=== PATIENT | female | born 1945 | race Caucasian/White ===

== ENCOUNTER 2017-06-30 13:52 | Inpatient (IN) | payer OTHER, MEDICARE ==
[~2017-06-30] VITALS: Ht 170.2 cm; Wt 69.4 kg
[2017-06-30] VITALS (38 sets, daily range): BP systolic 77–154; BP diastolic 54–92; PULSE 72–166; RESP 9–25; TEMP 97.8–98.3; O2SAT 90–100
[~2017-06-30 13:52] MED LIST: ALBU6.7H INH; AMOX500C PO; ASPI81TA81 PO; CLOB0.05 TOPICAL; CREON12 PO; CYAN1000P IM; DONE10TA7 PO; GABA300C5 PO; HYDR-3583 PO; LORA1TAB12 PO; MEDICAL COMPRES1 MIS; OMEP20CA2 PO; OXYB5TAB10 PO; TRAZ100T6 PO; ZOCO40TA PO; [UNRECOGNIZED DRUG - OTHER] SQ
[2017-06-30] MEDS ORDERED: DILTIAZEM HCL 25 MG/5 ML VIAL IV ONE ×2 (14:15→16:15)
[2017-06-30] MEDS ORDERED: SODIUM CHLORIDE 0.9% FLUSH 10 ML FLUSH IVF PRN (14:15)
[2017-06-30] MEDS ORDERED: SODIUM CHLORID 0.9% 500 ML INJ 500 ML IV ONE (14:15)
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
[2017-06-30 14:43] LABS: AUTOMATED NEUTROPHIL # 1.7 TH/MM3 (1.8-7.7); BASOPHIL # 0.1 TH/MM3 (0-0.2); BASOPHIL % 1.5 % (0.0-2.0); EOSINOPHIL # 0.1 TH/MM3 (0-0.4); HEMATOCRIT 31.2 % (35.0-46.0); HEMOGLOBIN 10.2 GM/DL (11.6-15.3); LYMPH % 31.8 % (9.0-44.0); LYMPHOCYTE # 1.1 TH/MM3 (1.0-4.8); MEAN CELL VOLUME 86.1 FL (80.0-100.0); MEAN CORPUSCULAR HEMOGLOBIN 28.1 PG (27.0-34.0); MEAN CORPUSCULAR HGB CONC 32.7 % (32.0-36.0); MEAN PLATELET VOLUME 7.8 FL (7.0-11.0); MONO % 12.4 % (0.0-8.0); MONOCYTE # 0.4 TH/MM3 (0-0.9); NEUT % 50.3 % (16.0-70.0); PLATELET COUNT 222 TH/MM3 (150-450); RED BLOOD COUNT 3.63 MIL/MM3 (4.00-5.30); RED CELL DISTRIBUTION WIDTH 16.2 % (11.6-17.2); WHITE BLOOD COUNT 3.4 TH/MM3 (4.0-11.0)
[2017-06-30] MEDS ORDERED: SODIUM CHLOR 0.9% 1000 ML INJ 1,000 ML IV ONE (14:45)
--- NOTE | 2017-06-30 14:48 | RADRPT ---
EXAM DATE/TIME: 06/30/2017 14:17 [facility] COMPARISON: No previous studies available for comparison. INDICATIONS : Heart palpitations and shortness of breath. MEDICAL HISTORY : A-fib. SURGICAL HISTORY : Pacemaker. CABG. ENCOUNTER: Initial ACUITY: 1 day PAIN SCORE: 0/10 LOCATION: Bilateral chest FINDINGS: Median sternotomy wires are noted status post cardiac surgery. The heart is enlarged. A left subcla vian multi-lead pacemaker has its tip in the right atrium or right ventricle. There is no pneumothor ax. Discoid atelectasis is noted within the right lung base. CONCLUSION: 1. Cardiomegaly. 2. Discoid atelectasis within the right lung base. Long Whalen MD on June 30, 2017 at 14:28 Board Certified Radiologist. This report was verified electronically.
[2017-06-30] MEDS ORDERED: OXYB5TAB10 PO (14:51)
[2017-06-30 15:23] LABS: CHLORIDE 110 MEQ/L (98-107); SODIUM (NA) 142 MEQ/L (136-145)
[2017-06-30 15:27] LABS: ALBUMIN 2.7 GM/DL (3.4-5.0); BICARBONATE 24.2 MEQ/L (21.0-32.0); BLOOD UREA NITROGEN 9 MG/DL (7-18); CALCIUM 7.6 MG/DL (8.5-10.1); GLUCOSE,RANDOM 68 MG/DL (74-106); MAGNESIUM 1.9 MG/DL (1.5-2.5)
[2017-06-30 15:29] LABS: PROTHROMBIN TIME - PATIENT 11.4 SEC (9.8-11.6)
[2017-06-30 15:30] LABS: ALT (GPT) 15 U/L (10-53); AST (GOT) 15 U/L (15-37); CREATININE 0.55 MG/DL (0.50-1.00); GLOMERULAR FILTRATION RATE 110 ML/MIN (>89)
[2017-06-30] MEDS ORDERED: DIGOXIN 0.5 MG/2 ML VIAL IV PUSH ONE (15:30)
[2017-06-30] MEDS ORDERED: DILTIAZEM INJ 125 MG in SODIUM CHLORIDE 0.9% INJ 100 ML IV PRN (15:30)
[2017-06-30 15:32] LABS: TOTAL BILIRUBIN ADULT 0.3 MG/DL (0.2-1.0); TOTAL PROTEIN 5.6 GM/DL (6.4-8.2)
[2017-06-30 15:33] LABS: ALKALINE PHOSPHATASE 105 U/L (45-117)
[2017-06-30 15:35] LABS: TROPONIN I LESS THAN 0.02 NG/ML (0.02-0.05)
[2017-06-30] MEDS ORDERED: APIXABAN 5 MG TABLET PO ONE (16:00)
[2017-06-30] MEDS ORDERED: NALOXONE HCL 0.4 MG/ML AMP IV PUSH PRN (16:15)
[2017-06-30] MEDS ORDERED: SODIUM CHLORIDE 0.9% FLUSH 10 ML FLUSH IV FLUSH PRN (16:15)
[2017-06-30] MEDS ORDERED: ACETAMINOPHEN 325 MG TAB PO PRN (16:15)
[2017-06-30] MEDS ORDERED: ONDANSETRON HCL 4 MG/2 ML VIAL IVP PRN (16:15)
[2017-06-30] MEDS ORDERED: SENNOSIDES 8.6 MG TAB PO PRN (16:15)
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
[2017-06-30] MEDS: ACETAMINOPHEN/HYDROcodone 325 MG/10 MG TAB PO PRN (20:16)
[2017-06-30] MEDS: DONEPEZIL HCL 5 MG TAB PO SCH (20:17)
[2017-06-30] MEDS: GABAPENTIN 300 MG CAP PO SCH (20:17)
[2017-06-30] MEDS: SODIUM CHLORIDE 0.9% FLUSH 10 ML FLUSH IV FLUSH SCH (20:17)
[2017-07-01] VITALS (12 sets, daily range): BP systolic 80–134; BP diastolic 50–88; PULSE 68–122; RESP 11–33; TEMP 97.8–98; O2SAT 90–96
[2017-07-01] MEDS: DILTIAZEM HCL 30 MG TAB PO SCH ×2 (00:19→05:55)
[2017-07-01] MEDS ORDERED: SODIUM CHLORID 0.9% 500 ML INJ 500 ML IV ONE (03:00)
[2017-07-01 04:59] LABS: AUTOMATED NEUTROPHIL # 1.3 TH/MM3 (1.8-7.7); BASOPHIL % 0.9 % (0.0-2.0); EOSINOPHIL # 0.1 TH/MM3 (0-0.4); EOSINOPHIL % 4.1 % (0.0-4.0); HEMATOCRIT 28.5 % (35.0-46.0); LYMPH % 31.9 % (9.0-44.0); LYMPHOCYTE # 0.9 TH/MM3 (1.0-4.8); MEAN CORPUSCULAR HEMOGLOBIN 26.9 PG (27.0-34.0); MEAN CORPUSCULAR HGB CONC 31.7 % (32.0-36.0); MEAN PLATELET VOLUME 7.5 FL (7.0-11.0); MONO % 14.3 % (0.0-8.0); MONOCYTE # 0.4 TH/MM3 (0-0.9); NEUT % 48.8 % (16.0-70.0); PLATELET COUNT 220 TH/MM3 (150-450); RED BLOOD COUNT 3.36 MIL/MM3 (4.00-5.30); RED CELL DISTRIBUTION WIDTH 15.7 % (11.6-17.2); WHITE BLOOD COUNT 2.7 TH/MM3 (4.0-11.0)
[2017-07-01 05:11] LABS: BICARBONATE 25.5 MEQ/L (21.0-32.0); CALCIUM 7.5 MG/DL (8.5-10.1)
[2017-07-01 05:15] LABS: CREATININE 0.49 MG/DL (0.50-1.00)
[2017-07-01] MEDS: ACETAMINOPHEN/HYDROcodone 325 MG/10 MG TAB PO PRN ×3 (05:58→19:11)
--- NOTE | 2017-07-01 08:22 | MB ---
cc: RADHA VERNON MD DATE OF CONSULTATION 07/01/2017 REASON FOR CONSULTATION Atrial fibrillation HISTORY OF PRESENT ILLNESS Ms. Chow is a 71-year-old female who does have a history of atrial fibrillation and is status post ablation and [employer] Macario pacemaker implantation. She also has a history of mitral valve repair and congestive heart failure. 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 Oglesby and was found to be in atrial fibrillation RVR. She subsequently presented to the emergency room. She also notes that she has been having intermittent episodes of a chest fullness in her left upper chest. This did not appear to have any precipitating or relieving factors. She describes it like an air bubble in her chest. PAST MEDICAL HISTORY Significant for: 1. Atrial fibrillation 2. Chronic pain 3. CHF 4. Hepatitis 5. Obesity status post gastric bypass 6. Mitral regurgitation status post mitral valve repair 7. The patient notes that she also has had chronic anemia. PAST SURGICAL HISTORY Also includes: 1. BSO 2. Pacemaker implantation. ALLERGIES Included CONTRAST, DICLOFENA, 5-FU, AMLODIPINE, GADOBENIC ACID. OUTPATIENT MEDICATIONS Include: 1. Hydrocodone 2. Ditropan 3. Gabapentin 4. Omeprazole 5. Amoxicillin for recurrent dental infections 6. Donepezil 7. Aspirin FAMILY HISTORY Significant for Alzheimer's and negative for CAD. SOCIAL HISTORY The patient does not drink or smoke. REVIEW OF SYSTEMS Except as mentioned in the HPI, all 12 systems are negative. PHYSICAL EXAM VITAL SIGNS: 98.0, 70, 12, 89/56. GENERAL: She is a thin female who is in no apparent distress. NECK: Her neck is free from JVD. LUNGS: The lungs are bilaterally clear auscultation. CARDIOVASCULAR: She has an irregularly irregular rhythm. No rubs or gallops are appreciated. ABDOMEN: The abdomen is soft. EXTREMITIES: The extremities are free from edema. LAB VALUES Significant for a white count of 2.7, hemoglobin of 9.0. Her creatinine is 0.49 and serial troponins are less than 0.02. EKG from 07/01 does show atrial fibrillation with rapid ventricular rate at about 160. Telemetry currently shows atrial fibrillation at 80 beats per minute with intermittent demand pacing. IMPRESSION Atrial fibrillation - The patient does have a history of the same. She is a poor historian. She apparently was not on any rate controlling meds likely secondary to her relative hypotension. As well, she is quite anemic. According to her, she has not been worked up for this and was unaware that this is a current problem, although she has a history of the same. In light of this, I would not pursue aggressive anticoagulation despite her elevated CHADS-VASc risk score. I am going to switch her short-acting Cardizem to the long-acting Cardizem for rate control. Aspirin does seem reasonable for anticoagulation at this point. Chest pain - Further evaluation with a Lexiscan nuclear stress test does seem reasonable, although she is a poor/not a revascularization candidate at this time secondary to the anemia. Anemia - This will be worked up by the primary team. If the patient remains well rate controlled on the Cardizem and the nuclear stress test is nonischemic, it is reasonable for her to be discharged home. Radha Vernon M.D. TRIPP/NICK /7:40 AM /8:05 AM
[2017-07-01] MEDS: ASPIRIN EC 81 MG TABEC PO SCH (09:00)
[2017-07-01] MEDS: SODIUM CHLORIDE 0.9% FLUSH 10 ML FLUSH IV FLUSH SCH ×2 (09:00→20:57)
--- NOTE | 2017-07-01 09:42 | EKG ---
Date Performed: 06/30/2017 Time Performed: 14:10:18 PTAGE: 71 years EKG: ATRIAL FIBRILLATION WITH RAPID VENTRICULAR RESPONSE NONSPECIFIC T-WAVE ABNORMALITY ABNORMAL RHYTHM ECG PREVIOUS TRACING : 10/30/2013 16.37 Since prior tracing, atrial fibrillation with rapid ventric ular response has replaced an atrial paced rhythm. DOCTOR: Nikhil Torres Interpretating Date/Time 07/01/2017 09:40:14
[2017-07-01] MEDS: DILTIAZEM-CD 120 MG CAP ER PO SCH (11:07)
--- NOTE | 2017-07-01 12:46 | HHI.PR ---
Subjective Remarks Patient has had hypotension overnight. Heart rate 116. Blood pressure improved 110/72. Patient was to go for stress test this morning but was unable to secondary to tachycardia. Cardiology Dr. Vernon was notified. Patient complaining of chronic back pain and asked for breakthrough pain medicine. Patient denies shortness of breath or dizziness. Review of patient's record shows that she has had chronic anemia. She was referred to a aircraft maintenance supervisor in 2009 but did not show up for the appointment. Patient had negative Hemoccult. She has had negative colonoscopy more than 10 years ago. Patient denies history of GI bleed or gastric ulcer. Patient denies seeing any blood in her stool. Patient does have history of gastric bypass and states that her by mouth intake is poor. She believes she is anemic secondary to this. Patient also has history of drug-seeking behavior as per her primary care physician notes with a history of getting her prescription drugs filled early. Objective Vitals Vital Signs Date Time Temp Pulse Resp B/P (MAP) Pulse Ox O2 Delivery O2 Flow Rate FiO2 07/01/17 04:10 70 12 89/56 (67) 95 07/01/17 04:00 98.0 68 13 83/52 (62) 93 07/01/17 03:00 76 16 92/55 (67) 93 07/01/17 02:55 78 80/50 07/01/17 02:00 78 12 80/50 (60) 90 07/01/17 01:30 76 13 93 07/01/17 01:15 90 11 94 07/01/17 01:00 106 33 103/79 (87) 90 07/01/17 01:00 106 33 103/79 (87) 90 07/01/17 01:00 106 33 103/79 (87) 90 07/01/17 00:45 84 17 105/64 (78) 96 07/01/17 00:45 84 17 105/64 (78) 96 07/01/17 00:30 78 14 98/64 (75) 95 07/01/17 00:30 78 14 98/64 (75) 95 07/01/17 00:15 76 16 94/64 (74) 93 07/01/17 00:15 76 16 94/64 (74) 93 07/01/17 00:00 78 14 92/62 (72) 93 07/01/17 00:00 78 14 92/62 (72) 93 06/30/17 23:45 84 14 91/59 (70) 92 06/30/17 23:30 90 14 98/56 (70) 92 06/30/17 23:15 78 14 97/64 (75) 93 06/30/17 23:00 78 06/30/17 23:00 72 14 99/57 (71) 93 06/30/17 22:45 84 15 97/60 (72) 93 06/30/17 22:30 80 15 102/61 (75) 92 06/30/17 22:15 84 12 93/64 (74) 94 06/30/17 22:00 80 14 89/54 (66) 92 06/30/17 21:45 80 15 87/55 (66) 93 06/30/17 21:30 78 14 90/55 (67) 93 06/30/17 21:15 82 17 98/62 (74) 97 06/30/17 21:00 86 23 94/62 (73) 97 06/30/17 20:45 106 24 110/56 (74) 90 06/30/17 20:30 102 22 154/74 (100) 97 06/30/17 20:30 93 97/55 06/30/17 20:15 84 17 97/55 (69) 97 06/30/17 20:00 98.3 92 16 140/69 (92) 96 06/30/17 20:00 92 06/30/17 19:45 92 23 102/60 (74) 97 06/30/17 19:30 102 19 114/80 (91) 90 06/30/17 19:15 86 16 98/55 (69) 99 06/30/17 19:00 130 125/80 06/30/17 19:00 130 25 125/80 (95) 96 06/30/17 18:45 132 21 138/92 (107) 98 06/30/17 18:15 128 16 130/89 (103) 98 06/30/17 18:15 128 16 130/89 (103) 98 06/30/17 18:00 128 20 97 06/30/17 18:00 128 20 117/81 (93) 97 06/30/17 17:53 128 9 124/87 (99) 98 06/30/17 17:45 97.9 11/2/17 17:35 90 16 119/90 (100) 100 Room Air 06/30/17 17:30 16 117/88 (98) 100 06/30/17 16:30 101 16 109/85 (93) 97 Room Air 06/30/17 16:05 101 18 112/79 (90) 99 Room Air 06/30/17 16:03 149 101/80 06/30/17 15:42 103 16 101/80 (87) 98 Room Air 06/30/17 15:07 112 16 98/67 (77) 100 Room Air 06/30/17 14:47 106 16 96/65 (75) 100 Room Air 06/30/17 14:40 Room Air 06/30/17 14:40 108 16 88/74 (79) 96 Room Air 06/30/17 14:24 100/79 (86) 110/76 (87) 06/30/17 14:24 156 16 100/79 (86) 98 Room Air 06/30/17 14:20 166 16 87/68 (74) 98 Room Air 06/30/17 14:07 154 16 110/76 (87) 96 Room Air 06/30/17 14:00 160 16 114/76 (89) 95 Room Air 06/30/17 14:00 100 Nasal Cannula 2.00 06/30/17 13:59 97.8 160 18 114/74 (87) 97 Room Air I/O 06/30/17 06/30/17 06/30/17 07/01/17 07/01/17 07/01/17 07:00 15:00 23:00 07:00 15:00 23:00 Intake Total 500 ml 1000 ml 500 ml Output Total 600 ml Balance 500 ml 1000 ml -100 ml Intake IV Total 500 ml 1000 ml 500 ml Output Urine Total 600 ml Result Diagram: 07/01/17 0435 07/01/175 Objective Remarks GENERAL: Well-nourished, well-developed lean female patient. SKIN: Warm and dry. HEAD: Normocephalic. EYES: No scleral icterus. No injection or drainage. NECK: Supple, trachea midline. No JVD or lymphadenopathy. CARDIOVASCULAR: Irregularly irregular rate and rhythm, 2/6 systolic murmur left sternal border. RESPIRATORY: Breath sounds equal bilaterally. No accessory muscle use. GASTROINTESTINAL: Abdomen soft, non-tender, nondistended. EXTREMITIES: No cyanosis, or edema. NEUROLOGICAL: Awake, alert, and oriented x 3. Non-focal. 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 Patient is being followed by cardiology. Unfortunately blood pressure tends to run low. Patient on aspirin for anticoagulation as she has anemia of undetermined etiology. Discussed with Dr. Vernon. -Chest discomfort. Patient to have Rosie scan stress test from heart rate controlled. Trops and EKG were negative for ischemia. -Permanent pacemaker, history of mitral valve replacement. Followed by Dr. Oglesby. -Chronic anemia, negative colonoscopy more than 10 years ago. Hemoglobin usually 9-10 but has been as low as 7 in the past in 2014. Had negative Hemoccult with PCP. No history of GI bleeding. Status post gastric bypass. We 'll order iron studies, B-12, folic acid, Hemoccult. She also has mildly decreased white blood cell count. She was referred to hematology in the past but was a no-show. Will consult hematology for opinion. She is due for repeat colonoscopy. If Hemoccult negative this can be done in the outpatient setting. -Chronic low back pain. Also has history of opioid seeking as per PCP notes. Continue Lortab. Oxycodone now for breakthrough pain however avoid escalating opioids. -Memory impairment. Continue donepezil. -Anxiety. On Ativan 1 mg by mouth 3 times a day at home. -GERD. Continue omeprazole. -Peripheral neuropathy continue Neurontin -DVT prophylaxis with SCDs. Shazia Brar MD Jul 01, 2017 12:46
[2017-07-01] MEDS: DILTIAZEM HCL 30 MG TAB PO PRN (14:46)
[2017-07-01 16:28] LABS: % SATURATION IRON PROFILE 12.7 % (20-50); IRON (FE) 44 MCG/DL (50-170); TOTAL IRON BINDING CAPACITY 347 MCG/DL (250-450)
[2017-07-01 16:53] LABS: FERRITIN 5 NG/ML (8-252)
[2017-07-01 16:58] LABS: FOLATE GREATER THAN 20.0 NG/ML (3.1-17.5)
[2017-07-01] MEDS ORDERED: AMOX500C PO (17:26)
[2017-07-01] MEDS ORDERED: CYANOCOBALAMIN 1000 MCG/ML VIAL SQ ONE (18:30)
--- NOTE | 2017-07-01 19:10 | ECHRPT ---
Indication: a fib/flutter CONCLUSIONS The left ventricular systolic function is low normal with an estimated ejection fraction in the rang e of 50- 55%. Mild concentric left ventricular hypertrophy. Moderate mitral valve regurgitation. Trace aortic valve regurgitation. There is moderate to severe tricuspid valve regurgitation. BP: / HR: Rhythm: MEASUREMENTS (Male / Female) Normal Values Technical Quality:Good 2D ECHO LV Diastolic Diameter PLAX 4.1 cm 4.2 - 5.9 / 3.9 - 5.3 cm LV Systolic Diameter PLAX 3.2 cm IVS Diastolic Thickness 1.5 cm 0.6 - 1.0 / 0.6 - 0.9 cm LVPW Diastolic Thickness 1.1 cm 0.6 - 1.0 / 0.6 - 0.9 cm LV Relative Wall Thickness 0.6 RV Internal Dim ED PLAX 2.7 cm M-MODE Aortic Root Diameter MM 3.2 cm LA Systolic Diameter MM 4.1 cm LA Ao Ratio MM 1.3 AV Cusp Separation MM 2.1 cm DOPPLER TR Peak Velocity 272.0 cm/s TR Peak Gradient 29.6 mmHg Right Atrial Pressure 10.0 mmHg Pulmonary Artery Systolic Pressu 39.6 mmHg Right Ventricular Systolic Press 39.6 mmHg FINDINGS LEFT VENTRICLE The left ventricular systolic function is low normal with an estimated ejection fraction in the rang e of 50- 55%. Normal left ventricular size. No regional wall motion abnormalities are present. Mild concentric left ventricular hypertrophy. RIGHT VENTRICLE Grossly normal A pacemaker wire is noted. LEFT ATRIUM The left atrial size is [id number] dilated. RIGHT ATRIUM The right atrial size is moderately dilated. ATRIAL SEPTUM The interatrial septum not well visualized. AORTA The aortic root and proximal ascending aorta are not well visualized. MITRAL VALVE Structurally normal mitral valve. Moderate mitral valve regurgitation. Moderate mitral annular calcification. AORTIC VALVE Grossly normal Aortic valve sclerosis is present. Trace aortic valve regurgitation. No aortic valve stenosis. TRICUSPID VALVE Structurally normal tricuspid valve. There is moderate to severe tricuspid valve regurgitation. The estimated pulmonary arterial pressure is 39.6 mmHg. PULMONARY VALVE The pulmonary valve is not well visualized. PERICARDIUM No pericardial effusion. Tra Parada DO (Electronically Signed) Final Date:01 July 2017 19:10
--- NOTE | 2017-07-01 19:36 | MB ---
cc: SHAZIA CANSECO MD, RUBY ANNE E. M.D. DATE OF CONSULTATION 07/01/2017 DATE OF [address] Shazia Canseco CHIEF COMPLAINT Dr. Canseco requested consultation for Ms. Chow regarding iron deficiency anemia complicating atrial fibrillation with rapid ventricular response. HISTORY OF PRESENT ILLNESS Ms. Chow is a 71-year-old woman with history of cervical cancer. She has had a history of right lower extremity deep vein thromboses. She was on anticoagulant therapy. She had a history of morbid obesity and had bariatric surgery/gastric bypass surgery. Prior to her bypass surgery an inferior vena cava filter was placed and it still remains in place. Her course was complicated by atrial fibrillation status post ablation and [employer]ario pacemaker implantation. She has had mitral valve repair and congestive heart failure. She describes being on anticoagulant therapy with dabigatran and weeping lower extremity, presumably from heart failure. She has had intermittent flutters for weeks. She was seen by Dr. Oglesby and subsequently presented to the emergency room with atrial fibrillation, rapid ventricular response. She is seen by cardiology and is placed on rate control medications. This is being titrated, her blood pressure is low. She reports being fatigued for several weeks. She attributed it to her heart. She was admitted with hemoglobin of 10.2. Her hemoglobin went down to 9.0. Iron studies are consistent with iron deficiency with a ferritin of 5. Review of electronic medical record shows normal hemoglobin back in 2004, 2005 and 2006. There are periods of anemia. Ms. Chow reports that she has been anemic all her life, although this does not seem to be the case as she has had periods of normal hemoglobin. Other iron studies show marginal iron stores with a ferritin of 12 back in 2009. She has had a bypass surgery a long time ago. Her serum B12 level was normal from this admission. Her vitamin D is in the normal range as well. REVIEW OF SYSTEMS She reports being unable to eat because of her teeth. She otherwise have no limitations in the type of food. She is not a vegetarian. She denies any bleeding. No melena or bright red blood per rectum. She was taking an aspirin prophylactically. This she started after having difficulty with the dabigatran. The rest of her review of systems is negative. PAST MEDICAL HISTORY 1. Uterine/cervical cancer. 2. Atrial fibrillation, rapid ventricular response. 3. Congestive heart failure. 4. Right lower extremity deep vein thromboses. 5. Chronic postphlebitic syndrome, right lower extremity. 6. Mitral valve regurg, status post repair. 7. Iron deficiency. 8. Obesity. PAST SURGICAL HISTORY 1. Pacemaker placement. 2. Mitral valve repair. 3. Gastric bypass surgery. 4. Bilateral salpingo-oophorectomy. 5. Surgery for cervical cancer. FAMILY HISTORY She was adopted out. Mother had Alzheimer's but could not tell more information. She ended up living with her father. Father had no history of cancer. SOCIAL HISTORY She denies any tobacco, alcohol or illicit drug use. ALLERGIES ALLERGIES TO CONTRAST, DICLOFENAC, 5-FU, AMLODIPINE, GADOBENIC ACID. CURRENT MEDICATIONS 1. Cardizem. 2. Ecotrin. 3. Aricept. 4. Neurontin. 5. Zofran p.r.n. 6. [place] p.r.n. PHYSICAL EXAMINATION VITAL SIGNS: Temperature 98.0, heart rate 68, respiratory rate 12, blood pressure 89/56, saturation 95%. GENERAL: Ms. Chow is a 71-year-old woman who looks her stated age. She has poor dentition. She has multiple missing teeth. HEENT: Her pupils are round, reactive to light and accommodation. Conjunctiva is pink. Oropharynx is clear. NECK: Neck is supple. LUNGS: Clear. CARDIOVASCULAR: Exam reveals rate-controlled rhythm. ABDOMEN: Abdomen is benign. EXTREMITIES: Lower extremity asymmetry, right leg more prominent than the left. There is some scabs. There is trace edema bilaterally. Evidence of postphlebitic syndrome on the right with chronic hyperpigmentation. LABORATORY DATA Significant for leukopenia. White blood cell count 2.7, hemoglobin 9.0. Her MCV 85.0 which is decreased from previous, platelet count is normal. Chemistry, BUN and creatinine are normal. Iron studies with serum iron 44. Percent saturation 12.7, ferritin 5. ASSESSMENT/PLAN Ms. Chow is a 71-year-old woman with multiple medical problems described above. She has prior history of cervical/uterine cancer and is in remission. She had a history of right lower extremity deep vein thromboses with chronic postphlebitic syndrome. She has had no recurrence. She has had an inferior vena cava filter placement prior to her gastric bypass surgery and it is still in place. She has stable weight post her gastric bypass surgery. She still has an effort in trying to eat and maintain adequate hydration. I suspect she has difficulty in absorbing oral iron and some of the nutrients. So far she appears to be replete of B12 and vitamin D. Her iron is, however low. There is no evidence of GI loss of iron. I will check stool for hemoccult. Her iron studies are consistent with iron deficiency. I calculate her iron deficit 657 milligrams to kit her hemoglobin from 9 to 12. I anticipate that her hemoglobin will return to normal once replete of iron. I plan to write an additional 500 milligrams to replete her stores. We discussed plans to replace her iron to improve her hemoglobin. This would improve her sense of well-being and fatigue. This would decrease the effort from her heart. Defer to cardiology for management of the atrial fibrillation. We will consider other etiology of anemia if her hemoglobin does not improve after parenteral iron therapy. When stable the patient may be discharged to follow up in an outpatient basis to complete her iron therapy. Her questions were answered to her satisfaction. Fern Chavis MD RAD/EO /6:24 PM /7:17 PM
[2017-07-01] MEDS: IRON SUCROSE INJ 100 MG in SODIUM CHLORIDE 0.9% INJ 100 ML IV SCH (20:52)
[2017-07-01] MEDS: DONEPEZIL HCL 5 MG TAB PO SCH (22:11)
[2017-07-01] MEDS: GABAPENTIN 300 MG CAP PO SCH (22:11)
[2017-07-02] VITALS (19 sets, daily range): BP systolic 99–130; BP diastolic 57–83; PULSE 78–135; RESP 10–20; TEMP 97.6–98.3; O2SAT 92–99
[2017-07-02] MEDS: DILTIAZEM HCL 30 MG TAB PO PRN (05:46)
[2017-07-02] MEDS: ACETAMINOPHEN/HYDROcodone 325 MG/10 MG TAB PO PRN ×2 (05:51→16:47)
[2017-07-02] MEDS: DILTIAZEM-CD 120 MG CAP ER PO SCH (07:46)
[2017-07-02] MEDS: ASPIRIN EC 81 MG TABEC PO SCH ×2 (07:47→07:51)
[2017-07-02] MEDS: SODIUM CHLORIDE 0.9% FLUSH 10 ML FLUSH IV FLUSH SCH ×2 (07:47→20:02)
[2017-07-02] MEDS: IRON SUCROSE INJ 100 MG in SODIUM CHLORIDE 0.9% INJ 100 ML IV SCH (08:39)
[2017-07-02] MEDS ORDERED: REGADENOSON INJ 0.4 MG/5 ML SYR IV ONE (11:19)
--- NOTE | 2017-07-02 12:02 | RADRPT ---
EXAM DATE/TIME: 07/01/2017 11:21 [facility] COMPARISON: No previous studies available for comparison. INDICATIONS : Chest pain. Atrial fibrillation. DOSE: 30 mCi Tc99m Myoview at stress. 8.5 mCi Tc99m Myoview at rest. 0.4 mg Lexiscan STRESS SYMPTOMS: Lightheaded. EJECTION FRACTION: 61% MEDICAL HISTORY : Hepatitis. Hypertension. SURGICAL HISTORY : Hysterectomy. Gastric bypass. Pacemaker. Tonsillectomy ENCOUNTER: Initial ACUITY: 4 - 6 days PAIN SCALE: 4/10 LOCATION: Bilateral chest TECHNIQUE: The patient underwent pharmacologic stress with infusion of prescribed dose. Continuous ECG tracing was monitored during stress. Gated SPECT imaging was performed after stress and conventional SPECT i maging was performed at rest. The examination was performed on a SPECT/CT scanner, both attenuation and non-corrected datasets were reviewed. FINDINGS: DISTRIBUTION: The maximum perfused segment at stress is in the lateral wall. PERFUSION STUDY: The pattern of perfusion at stress is within normal limits. GATED STUDY: There is intact wall motion and thickening without hypokinetic or dyskinetic segments. CONCLUSION: No stress-induced ischemia. Wall motion within normal limits. RISK CATEGORY: Low Power Fuentes MD on July 02, 2017 at 11:59 Board Certified Radiologist. This report was verified electronically.
--- NOTE | 2017-07-02 14:26 | PD.CARD.PN ---
Subjective Subjective Remarks Patient back from stress test, negative for ischemia No chest pain/SOB Telemetry with mostly controlled heart rates of 80-110, but does have episodes of regular sustained in the 130-140, most likely aflutter Objective Medications Current Medications Medications (Trade) Dose Ordered Sig/Tony Route Start Time Stop Time Status Last Admin (NS Flush) 2 ml UNSCH PRN IV FLUSH 06/30/17 16:15 (NS Flush) 2 ml BID IV FLUSH 06/30/17 21:00 07/02/17 07:47 (Tylenol) 650 mg Q4H PRN PO 06/30/17 16:15 (Zofran Inj) 4 mg Q6H PRN IVP 06/30/17 16:15 (Narcan Inj) 0.4 mg UNSCH PRN IV PUSH 06/30/17 16:15 (Senokot) 17.2 mg Q12H PRN PO 06/30/17 16:15 (Aricept) 10 mg HS PO 06/30/17 21:00 07/01/17 22:11 (Neurontin) 300 mg HS PO 06/30/17 21:00 07/01/17 22:11 ([place]win 10-325 Mg) 2 tab Q6H PRN PO 06/30/17 16:15 07/02/17 05:51 (Cardizem Cd) 120 mg DAILY PO 07/01/17 09:00 07/02/17 07:46 (Ecotrin Ec) 81 mg DAILY PO 07/01/17 09:00 07/02/17 07:51 (Cardizem) 30 mg Q6H PRN PO 07/01/17 14:45 07/02/17 05:46 Iron Sucrose 100 mg/Sodium Chloride 105 ml @ 105 mls/hr DAILY IV 07/01/17 18:30 07/03/17 09:59 07/02/17 08:39 Vital Signs / I&O Vital Signs Date Time Temp Pulse Resp B/P (MAP) Pulse Ox O2 Delivery O2 Flow Rate FiO2 07/02/17 13:01 112 07/02/17 12:01 104 07/02/17 12:00 97.7 106 12 130/78 (95) 95 07/02/17 11:01 103 07/02/17 10:01 84 07/02/17 09:01 94 07/02/17 08:01 135 07/02/17 08:00 97.6 87 10 99/68 (78) 92 07/02/17 07:16 81 07/02/17 05:42 123 20 127/70 (89) 99 07/02/17 04:39 98.1 87 18 127/70 (89) 92 07/02/17 00:15 97.9 120 20 125/83 (97) 93 07/01/17 20:30 120 07/01/17 20:30 97.8 122 20 134/88 (103) 93 07/01/17 15:46 18 I/O 07/01/17 07/01/17 07/01/17 07/02/17 07/02/17 07/02/17 07:00 15:00 23:00 07:00 15:00 23:00 Intake Total 500 ml 240 ml Output Total 1700 ml 2300 ml Balance -1200 ml -2060 ml Intake Oral 240 ml IV Total 500 ml Output Urine Total 1700 ml 2300 ml Physical Exam GENERAL: NAD, AAOx3 SKIN: Warm and dry. HEAD: Atraumatic. Normocephalic. EYES: Pupils equal and round. No scleral icterus. No injection or drainage. ENT: No nasal bleeding or discharge. Mucous membranes pink and moist. NECK: Trachea midline. No JVD. CARDIOVASCULAR: Irregularly irregular. RESPIRATORY: No accessory muscle use. Clear to auscultation. Breath sounds equal bilaterally. GASTROINTESTINAL: Abdomen soft, non-tender, nondistended. Hepatic and splenic margins not palpable. MUSCULOSKELETAL: Extremities without clubbing, cyanosis, or edema. No obvious deformities. NEUROLOGICAL: Awake and alert. No obvious cranial nerve deficits. Motor grossly within normal limits. Five out of 5 muscle strength in the arms and legs. Normal speech. PSYCHIATRIC: Appropriate mood and affect; insight and judgment normal. Assessment and Plan Problem List: (1) Atrial fibrillation with RVR ICD Codes: I48.91 - Unspecified atrial fibrillation Status: Acute (2) Pacemaker ICD Codes: Z95.0 - Presence of cardiac pacemaker Status: Acute (3) Anemia ICD Codes: D64.9 - Anemia Status: Acute (4) Atrial fibrillation Status: Chronic Assessment and Plan 1) Afib mostly controlled but episodes of regular rhythm with rate of 130-140 Possible Aflutter vs Atach Will increase Cardizem to 240mg daily 2) Stress test negative for ischemia 3) Deemed not an anti-coagulation candidate due to anemia Can be reevaluated outpatient with Dr. Oglesby if Hgb responds to iron ASA 81mg daily 4) If heart rate unable to be controlled on medications, may need to consider Aflutter/Atach ablation 5) If heart rate/blood pressure stable on increased medication, can be discharged later today or tomorrow morning Follow up with Dr. Oglesby on discharge Tra Parada DO Jul 02, 2017 14:26
[2017-07-02] MEDS ORDERED: DILTIAZEM-CD 120 MG CAP ER PO ONE (14:30)
--- NOTE | 2017-07-02 15:24 | HHI.PR ---
Subjective Remarks Heart rate currently 101 110. She had to receive a when necessary by mouth Cardizem this morning. Blood pressure is stable. Cardiology has seen the patient increased her Cardizem CD dosing. Patient denies palpitations or shortness of breath. Objective Vitals Vital Signs Date Time Temp Pulse Resp B/P (MAP) Pulse Ox O2 Delivery O2 Flow Rate FiO2 07/02/17 13:01 112 07/02/17 12:01 104 07/02/17 12:00 97.7 106 12 130/78 (95) 95 07/02/17 11:01 103 07/02/17 10:01 84 07/02/17 09:01 94 07/02/17 08:01 135 07/02/17 08:00 97.6 87 10 99/68 (78) 92 07/02/17 07:16 81 07/02/17 05:42 123 20 127/70 (89) 99 07/02/17 04:39 98.1 87 18 127/70 (89) 92 07/02/17 00:15 97.9 120 20 125/83 (97) 93 07/01/17 20:30 120 07/01/17 20:30 97.8 122 20 134/88 (103) 93 07/01/17 15:46 18 I/O 07/01/17 07/01/17 07/01/17 07/02/17 07/02/17 07/02/17 07:00 15:00 23:00 07:00 15:00 23:00 Intake Total 500 ml 240 ml Output Total 1700 ml 2300 ml Balance -1200 ml -2060 ml Intake Oral 240 ml IV Total 500 ml Output Urine Total 1700 ml 2300 ml Result Diagram: 07/01/17 0435 07/01/17 0435 Objective Remarks GENERAL: Well-nourished, well-developed lean female patient. SKIN: Warm and dry. HEAD: Normocephalic. EYES: No scleral icterus. No injection or drainage. NECK: Supple, trachea midline. No JVD or lymphadenopathy. CARDIOVASCULAR: Irregularly irregular rate and rhythm, 2/6 systolic murmur left sternal border. RESPIRATORY: Breath sounds equal bilaterally. No accessory muscle use. GASTROINTESTINAL: Abdomen soft, non-tender, nondistended. EXTREMITIES: No cyanosis, or edema. NEUROLOGICAL: Awake, alert, and oriented x 3. Non-focal. 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 Patient is being followed by cardiology. Patient on aspirin for anticoagulation as she has anemia of undetermined etiology. Monitor overnight, hopefully her blood pressure will maintain stable and heart rate will be improved. If not she may need ablation. Patient understands and is agreeable. -Chest discomfort. Patient to have Rosie scan stress test from heart rate controlled. Trops and EKG were negative for ischemia. -Permanent pacemaker, history of mitral valve replacement. Followed by Dr. Oglesby. -Chronic anemia, iron deficient, negative colonoscopy more than 10 years ago. Hemoglobin usually 9-10 but has been as low as 7 in the past in 2014. Had negative Hemoccult with PCP. No history of GI bleeding. Status post gastric bypass. Appreciate hematology seen the patient, she is receiving IV iron. Hemoccult is pending. She is due for repeat colonoscopy. If Hemoccult negative this can be done in the outpatient setting. -Chronic low back pain. Also has history of opioid seeking as per PCP notes. Continue Lortab. Oxycodone now for breakthrough pain however avoid escalating opioids. -Memory impairment. Continue donepezil. -Anxiety. On Ativan 1 mg by mouth 3 times a day at home. -GERD. Continue omeprazole. -Peripheral neuropathy continue Neurontin -DVT prophylaxis with SCDs. Shazia Brar MD Jul 02, 2017 15:23
[2017-07-02] MEDS: GABAPENTIN 300 MG CAP PO SCH (20:02)
[2017-07-02] MEDS: DONEPEZIL HCL 5 MG TAB PO SCH (20:02)
[2017-07-03] VITALS (10 sets, daily range): BP systolic 87–136; BP diastolic 51–90; PULSE 68–136; RESP 10–30; TEMP 97.7–98.3; O2SAT 94–99
[2017-07-03] MEDS: ACETAMINOPHEN/HYDROcodone 325 MG/10 MG TAB PO PRN ×3 (00:06→15:56)
[2017-07-03] MEDS: IRON SUCROSE INJ 100 MG in SODIUM CHLORIDE 0.9% INJ 100 ML IV SCH (08:32)
[2017-07-03] MEDS: SODIUM CHLORIDE 0.9% FLUSH 10 ML FLUSH IV FLUSH SCH (08:33)
[2017-07-03] MEDS ORDERED: DILTIAZEM-CD 240 MG CAP ER PO SCH (09:00)
[2017-07-03 12:21] LABS: AUTOMATED NEUTROPHIL # 3.1 TH/MM3 (1.8-7.7); BASOPHIL % 0.3 % (0.0-2.0); EOSINOPHIL % 1.2 % (0.0-4.0); HEMATOCRIT 36.2 % (35.0-46.0); HEMOGLOBIN 11.2 GM/DL (11.6-15.3); LYMPH % 12.5 % (9.0-44.0); LYMPHOCYTE # 0.5 TH/MM3 (1.0-4.8); MEAN CORPUSCULAR HEMOGLOBIN 26.3 PG (27.0-34.0); MEAN PLATELET VOLUME 7.8 FL (7.0-11.0); MONO % 10.5 % (0.0-8.0); MONOCYTE # 0.4 TH/MM3 (0-0.9); NEUT % 75.5 % (16.0-70.0); PLATELET COUNT 257 TH/MM3 (150-450); RED BLOOD COUNT 4.26 MIL/MM3 (4.00-5.30); RED CELL DISTRIBUTION WIDTH 15.4 % (11.6-17.2)
[2017-07-03 12:33] LABS: BICARBONATE 29.1 MEQ/L (21.0-32.0); CALCIUM 8.1 MG/DL (8.5-10.1)
[2017-07-03 12:37] LABS: CREATININE 0.56 MG/DL (0.50-1.00)
--- NOTE | 2017-07-03 12:44 | HHI.PR ---
Subjective Remarks BP currently 87/53, pt denies dizziness. HR 90. However RN states with standing HR jumps up to 160. Objective Vitals Vital Signs Date Time Temp Pulse Resp B/P (MAP) Pulse Ox O2 Delivery O2 Flow Rate FiO2 07/03/17 08:00 98.3 135 20 136/83 (100) 99 07/03/17 08:00 97.9 124 19 135/83 (100) 07/03/17 05:03 90 17 92/51 (65) 07/03/17 04:00 90 07/03/17 04:00 98.0 80 16 87/63 (71) 94 07/03/17 00:00 97.7 78 14 107/68 (81) 95 07/03/17 00:00 77 07/02/17 20:00 98.3 96 16 109/57 (74) 95 07/02/17 19:00 78 07/02/17 18:01 100 07/02/17 17:08 89 07/02/17 16:01 79 07/02/17 16:00 97.6 85 13 102/65 (77) 95 07/02/17 15:01 83 07/02/17 13:01 112 I/O 07/02/17 07/02/17 07/02/17 07/03/17 07/03/17 07/03/17 07:00 15:00 23:00 07:00 15:00 23:00 Intake Total 240 ml 600 ml Output Total 2300 ml Balance -2060 ml 600 ml Intake Oral 240 ml 600 ml Output Urine Total 2300 ml # Voids 5 # Bowel Movements 0 Result Diagram: 07/03/17 1113 07/03/17 1113 Objective Remarks GENERAL: Well-nourished, well-developed lean female patient. SKIN: Warm and dry. HEAD: Normocephalic. EYES: No scleral icterus. No injection or drainage. NECK: Supple, trachea midline. No JVD or lymphadenopathy. CARDIOVASCULAR: Irregularly irregular rate and rhythm, 2/6 systolic murmur left sternal border. RESPIRATORY: Breath sounds equal bilaterally. No accessory muscle use. GASTROINTESTINAL: Abdomen soft, non-tender, nondistended. EXTREMITIES: No cyanosis, or edema. NEUROLOGICAL: Awake, alert, and oriented x 3. Non-focal. 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 Also patient tends towards hypotension. Patient is being followed by cardiology. Patient on aspirin for anticoagulation as she has anemia of undetermined etiology. She may need ablation. Further recs pending from cardiology. -Chest discomfort. Trops and EKG were negative for ischemia. Rosie scan stress test was negative. -Permanent pacemaker, history of mitral valve replacement. Followed by Dr. Oglesby. -Chronic anemia, iron deficient, negative colonoscopy more than 10 years ago. Hemoglobin usually 9-10 but has been as low as 7 in the past in 2013. Had negative Hemoccult with PCP. No history of GI bleeding. Status post gastric bypass. Appreciate hematology seen the patient, she is receiving IV iron. Hemoccult is pending. She is due for repeat colonoscopy. If Hemoccult negative this can be done in the outpatient setting. -Chronic low back pain. Also has history of opioid seeking as per PCP notes. Continue Lortab. Oxycodone now for breakthrough pain however avoid escalating opioids. -Memory impairment. Continue donepezil. -Anxiety. On Ativan 1 mg by mouth 3 times a day at home. -GERD. Continue omeprazole. -Peripheral neuropathy continue Neurontin -DVT prophylaxis with SCDs. Shazia Brar MD Jul 03, 2017 12:44
[2017-07-03] MEDS: ASPIRIN EC 81 MG TABEC PO SCH (14:01)
[2017-07-03] MEDS ORDERED: CARD240C6 PO (17:16)
--- NOTE | 2017-07-03 17:20 | HHI.DCPOC ---
Discharge Care Plan Diagnosis: (1) CHF (congestive heart failure) (2) Atrial fibrillation with RVR (3) Chronic back pain Goals to Promote Your Health * To prevent worsening of your condition and complications * To maintain your health at the optimal level Directions to Meet Your Goals Take your medications as prescribed Follow your dietary instruction Follow activity as directed Keep your appointments as scheduled Take your immunizations and boosters as scheduled If your symptoms worsen call your PCP, if no PCP go to Urgent Care Center or Emergency Room Smoking is Dangerous to Your Health. Avoid second hand smoke Call the 24-hour hour crisis hotline for domestic abuse at Jayashree Jeronimo Jul 03, 2017 17:20
--- NOTE | 2017-07-03 17:20 | HHI.DCPOC ---
Discharge Care Plan Diagnosis: (1) CHF (congestive heart failure) (2) Atrial fibrillation with RVR (3) Chronic back pain Goals to Promote Your Health * To prevent worsening of your condition and complications * To maintain your health at the optimal level Directions to Meet Your Goals Take your medications as prescribed Follow your dietary instruction Follow activity as directed Keep your appointments as scheduled Take your immunizations and boosters as scheduled If your symptoms worsen call your PCP, if no PCP go to Urgent Care Center or Emergency Room Smoking is Dangerous to Your Health. Avoid second hand smoke Call the 24-hour hour crisis hotline for domestic abuse at Jayashree Jeronimo Jul 03, 2017 17:20
--- NOTE | 2017-07-03 17:20 | HHI.DCPOC ---
Discharge Care Plan Diagnosis: (1) CHF (congestive heart failure) (2) Atrial fibrillation with RVR (3) Chronic back pain Goals to Promote Your Health * To prevent worsening of your condition and complications * To maintain your health at the optimal level Directions to Meet Your Goals Take your medications as prescribed Follow your dietary instruction Follow activity as directed Keep your appointments as scheduled Take your immunizations and boosters as scheduled If your symptoms worsen call your PCP, if no PCP go to Urgent Care Center or Emergency Room Smoking is Dangerous to Your Health. Avoid second hand smoke Call the 24-hour hour crisis hotline for domestic abuse at Jayashree Jeronimo Jul 03, 2017 17:20
--- NOTE | 2017-07-04 10:23 | HHI.DS ---
Discharge Summary Admission Date Jun 30, 2017 at 16:07 Discharge Date: Jul 03, 2017 Admitting Diagnosis atrial fibrillation with RVR (1) Atrial fibrillation with RVR ICD Code: I48.91 - Unspecified atrial fibrillation Status: Acute (2) Chronic back pain ICD Code: M54.9 - Dorsalgia, unspecified; G89.29 - Other chronic pain Status: Chronic (3) Memory impairment ICD Code: R41.3 - Other amnesia Status: Chronic (4) Chronic anemia ICD Code: D64.9 - Anemia, unspecified Procedures None Brief History - From Admission Ms. Chow is a 71-year-old female patient with a known medical history of atrial fibrillation and AICD placement who presented to the ED with atrial fibrillation RVR and associated mild shortness of breath and palpitations. 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 She states she has been having palpitations, without chest pain or discomfort, for the last 2 weeks but they would usually subside after 15-20 minutes after resting. She said it felt more like indigestion. Patient does have an AICD which was interrogated and actually displaying patient in and out of a fib RVR since 06/14/17. Denies any recent illness including fever, chills, cough, headache, chest pain, abdominal pain, nausea, vomiting, diarrhea or dysuria. Patient's powertrain control systems engineer is Dr. Oglesby and her PCP is Dr. Gutierrez. CBC/BMP: 07/03/17 1113 07/03/17 1113 Significant Findings Laboratory Tests Test 07/01/17 13:16 07/03/17 11:13 Iron Level 44 MCG/DL (50-170) Percent Iron Saturation 12.7 % (20-50) Ferritin 5 NG/ML (8-252) Folate GREATER THAN 20.0 NG/ML Hemoglobin 11.2 GM/DL (11.6-15.3) Mean Corpuscular Hemoglobin 26.3 PG (27.0-34.0) Mean Corpuscular Hemoglobin Concent 31.0 % (32.0-36.0) Neutrophils (%) (Auto) 75.5 % (16.0-70.0) Monocytes (%) (Auto) 10.5 % (0.0-8.0) Lymphocytes # (Auto) 0.5 TH/MM3 (1.0-4.8) Calcium Level 8.1 MG/DL (8.5-10.1) Chloride Level 108 MEQ/L (98-107) Imaging Last Impressions Myocardial Perfusion Scan Nuc Med 07/01/17 0000 Signed Impressions: Service Date/Time: Saturday, July 01, 2017 11:21 - CONCLUSION: No stress-induced ischemia. Wall motion within normal limits. RISK CATEGORY: Low Power Fuentes MD Chest X-Ray 06/30/17 1413 Signed Impressions: Service Date/Time: June 14:17 - CONCLUSION: 1. Cardiomegaly. 2. Discoid atelectasis within the right lung base. Long Whalen MD PE at Discharge GENERAL: Well-nourished, well-developed lean female patient. SKIN: Warm and dry. HEAD: Normocephalic. EYES: No scleral icterus. No injection or drainage. NECK: Supple, trachea midline. No JVD or lymphadenopathy. CARDIOVASCULAR: Irregularly irregular rate and rhythm, 2/6 systolic murmur left sternal border. RESPIRATORY: Breath sounds equal bilaterally. No accessory muscle use. GASTROINTESTINAL: Abdomen soft, non-tender, nondistended. EXTREMITIES: No cyanosis, or edema. NEUROLOGICAL: Awake, alert, and oriented x 3. Non-focal. 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 Patient Cardizem CD increased to 240 mg daily. patient does trend towards hypotension. Patient is being followed by cardiology. Patient on aspirin for anticoagulation as she has anemia of undetermined etiology. -Chest discomfort. Trops and EKG were negative for ischemia. Rosie scan stress test was negative. -Permanent pacemaker, history of mitral valve replacement. Followed by Dr. Oglesby. -Chronic anemia, iron deficient, negative colonoscopy more than 10 years ago. Hemoglobin usually 9-10 but has been as low as 7 in the past in 2014. Had negative Hemoccult with PCP. No history of GI bleeding. Status post gastric bypass. Appreciate hematology seen the patient, she is receiving IV iron. Hemoccult is pending. She is due for repeat colonoscopy. -Chronic low back pain. Also has history of opioid seeking as per PCP notes. Continue Lortab. Oxycodone now for breakthrough pain however avoid escalating opioids. -Memory impairment. Continue donepezil. -Anxiety. On Ativan 1 mg by mouth 3 times a day at home. -GERD. Continue omeprazole. -Peripheral neuropathy continue Neurontin -DVT prophylaxis with SCDs. Cardiology cleared for DC. Pt Condition on Discharge: Stable Discharge Disposition: Discharge Home Discharge Time: <= 30 minutes Discharge Instructions DIET: Follow Instructions for: Heart Healthy Diet Activities you can perform: Regular-No Restrictions Follow up Referrals: Cardiology - 2-3 Days PCP Follow-up - 2-3 Days New Medications: Diltiazem CD 24 HR (Cardizem CD 24 HR) 240 Mg Caper 240 MG PO DAILY for atrial fib for 30 Days, #30 CAP Continued Medications: Aspirin DR (Aspir-81) 81 Mg Tabdr 81 TAB PO DAILY, #90 TAB Donepezil (Donepezil) 10 Mg Tab 10 MG PO HS for Dementia, #31 TAB 11 Refills Gabapentin (Gabapentin) 300 Mg Cap 300 MG PO HS, #90 CAP 3 Refills Hydrocodone-Acetaminophen (Hydrocodone-Acetaminophen) 10-325 mg Tab 2 TAB PO Q6H PRN for PAIN, #120 TAB 0 Refills Omeprazole (Omeprazole) 20 Mg Cap 20 MG PO DAILY, #90 CAP Oxybutynin (Ditropan) 5 Mg Tab 5 MG PO QID for Urinary Symptom Managemen, #120 TAB 11 Refills Discontinued Medications: Amoxicillin (Amoxicillin) 500 Mg Cap 500 MG PO TID for Infection, #30 CAP 2 Refills One tab/cap three times a day for recurrent dental infection Oxybutynin (Ditropan) 5 Mg Tab 5 MG PO Q12HR for Urinary Symptom Managemen, #60 TAB 0 Refills Shazia Brar MD Jul 04, 2017 10:23
== END 2017-07-03 18:02 | disposition home or self-care (01) | DRG 310 ==
LOC: PHED 13:52 → PHEDA 16:07 → PHICU 17:50
PROVIDERS: ADMIT Family Medicine; ATTEND Family Medicine
DX: I48.2 Chronic atrial fibrillation (principal); I95.9 Hypotension, unspecified; I50.9 Heart failure, unspecified; G62.9 Polyneuropathy, unspecified; I10 Essential (primary) hypertension; G89.29 Other chronic pain; M54.5 Low back pain; F32.9 Major depressive disorder, single episode, unspecified; D50.9 Iron deficiency anemia, unspecified; F41.9 Anxiety disorder, unspecified; K21.9 Gastro-esophageal reflux disease without esophagitis; J45.909 Unspecified asthma, uncomplicated; Z98.84 Bariatric surgery status; Z79.82 Long term (current) use of aspirin; Z86.718 Personal history of other venous thrombosis and embolism; Z95.810 Presence of automatic (implantable) cardiac defibrillator; Z86.19 Personal history of other infectious and parasitic diseases; Z85.41 Personal history of malignant neoplasm of cervix uteri
CPT/HCPCS: 71010; 76937; 78452; 80048; 80053; 82550; 82607; 82728; 82746; 83540; 83550; 83735; 83880; 84443; 84484; 85025; 85610; 85730; 93005; 93017; 93306; 96361; 96374; 96375; A9502; J1160; J1756; J2785; J3420; J7030; J7040

== ENCOUNTER → 2018-01-24 | Outpatient (CLI) | payer OTHER ==
[~2018-01-24] MED LIST changes: -ALBU6.7H INH; +AMOX500T PO; -CLOB0.05 TOPICAL; -CREON12 PO; -CYAN1000P IM; +DILT240C44 PO; -LORA1TAB12 PO; -MEDICAL COMPRES1 MIS; -OXYB5TAB10 PO; +OXYB5TAB8 PO; -TRAZ100T6 PO; -ZOCO40TA PO; -[UNRECOGNIZED DRUG - OTHER] SQ
[2018-01-24 12:15] LABS: BICARBONATE 29.9 MEQ/L (21.0-32.0); CALCIUM 8.1 MG/DL (8.5-10.1); CREATININE 0.72 MG/DL (0.50-1.00)
== END ==
LOC: CLAB 10:58
PROVIDERS: ATTEND Family Medicine
DX: I50.9 Heart failure, unspecified (principal)
CPT/HCPCS: 36415; 80048

== ENCOUNTER 2018-02-16 17:47 | Inpatient (IN) | payer OTHER, MEDICARE ==
[2018-02-16] VITALS (7 sets, daily range): BP systolic 103–121; BP diastolic 68–90; PULSE 127–137; RESP 16–20; TEMP 97.5–97.7; O2SAT 97–100
[~2018-02-16] VITALS: Ht 170.2 cm; Wt 67.0 kg
[~2018-02-16 17:47] MED LIST changes: -AMOX500T PO; -DILT240C44 PO
[2018-02-16] MEDS ORDERED: SODIUM CHLORIDE 0.9% FLUSH 10 ML FLUSH IVF PRN (18:15)
[2018-02-16] MEDS ORDERED: AMOX500T PO (18:28)
[2018-02-16] MEDS ORDERED: DILT240C44 PO (18:28)
--- NOTE | 2018-02-16 18:30 | PD ---
Physical Exam Date Seen by Provider: Feb 16, 2018 Narrative This patient was sent to us by her primary care provider because of atrial fibrillation with a rapid ventricular response. She states that she does not feel her heart beating fast. She states that her doctor has been trying to treat this as an outpatient without success. Data Data Last Documented VS Vital Signs Date Time Temp Pulse Resp B/P (MAP) Pulse Ox O2 Delivery O2 Flow Rate FiO2 02/16/18 18:10 97.7 133 20 103/68 (80) 99 Room Air Orders Orders Electrocardiogram (02/16/18 18:04) Basic Metabolic Panel (Bmp) (02/16/18 18:04) Ckmb (Isoenzyme) Profile (02/16/18 18:04) Complete Blood Count With Diff (02/16/18 18:04) Magnesium (Mg) (02/16/18 18:04) Prothrombin Time / Inr (Pt) (02/16/18 18:04) Act Partial Throm Time (Ptt) (02/16/18 18:04) Troponin I (02/16/18 18:04) Chest, Single Ap (02/16/18 18:04) Ecg Monitoring (02/16/18 18:04) Iv Access Insert/Monitor (02/16/18 18:04) Oximetry (02/16/18 18:04) Sodium Chloride 0.9% Flush (Ns Flush) (02/16/18 18:15) B-Type Natriuretic Peptide (02/16/18 18:17) Labs Laboratory Tests Test 02/16/18 18:15 MDM Supervised Visit with CURTIS: Yes Narrative Course I, Dr. Pierre, have reviewed the advance practice practitioner's documentation and am in agreement, met with the patient face to face, made the diagnosis, and the medical decision making was done by me. *My assessment and Findings: Patient is awake and alert and does not appear to be in any distress. She has a heart rate of about 130. It is irregular. See Amrita Damon note for a more detailed H&P, final diagnosis and disposition Tali Pierre MD Feb 16, 2018 18:30
[2018-02-16 18:36] LABS: BASOPHIL % 1.4 % (0.0-2.0); EOSINOPHIL # 0.1 TH/MM3 (0-0.4); HEMATOCRIT 41.1 % (35.0-46.0); HEMOGLOBIN 13.5 GM/DL (11.6-15.3); LYMPH % 26.6 % (9.0-44.0); MEAN CELL VOLUME 99.8 FL (80.0-100.0); MEAN CORPUSCULAR HEMOGLOBIN 32.8 PG (27.0-34.0); MEAN CORPUSCULAR HGB CONC 32.8 % (32.0-36.0); MEAN PLATELET VOLUME 8.1 FL (7.0-11.0); MONO % 12.2 % (0.0-8.0); MONOCYTE # 0.4 TH/MM3 (0-0.9); NEUT % 56.8 % (16.0-70.0); PLATELET COUNT 227 TH/MM3 (150-450); RED BLOOD COUNT 4.11 MIL/MM3 (4.00-5.30); RED CELL DISTRIBUTION WIDTH 14.9 % (11.6-17.2); WHITE BLOOD COUNT 3.6 TH/MM3 (4.0-11.0)
[2018-02-16] MEDS ORDERED: METOPROLOL TARTRATE 5 MG/5 ML VIAL IV PUSH ONE (18:45)
--- NOTE | 2018-02-16 18:50 | RADRPT ---
EXAM DATE: 02/16/2018 6:40 PM EDT AGE/SEX: 72 years / Female INDICATIONS: Chest pain. CLINICAL DATA: This is the patient's initial encounter. Patient reports that signs and symptoms have been present for 1 day and indicates a pain score of 3/10. MEDICAL/SURGICAL HISTORY: Hypertension. Asthma. Afib. Pacemaker. Cardiac cath. Valve repair. COMPARISON: Chest x-ray 06/30/2017. FINDINGS: A single AP view of the chest demonstrates the lungs to be symmetrically aerated without evidence of mass, infiltrate or effusion. The cardiomediastinal contours are unremarkable. Osseous structures a re intact. Left-sided pacing device. Median sternotomy wires. CONCLUSION: No acute cardiopulmonary disease Electronically signed by: Jw Celaya MD 02/16/2018 6:48 PM EDT
[2018-02-16 18:53] LABS: PROTHROMBIN TIME - PATIENT 10.2 SEC (9.8-11.6)
[2018-02-16 19:03] LABS: BICARBONATE 26.2 MEQ/L (21.0-32.0); BLOOD UREA NITROGEN 12 MG/DL (7-18); CALCIUM 8.2 MG/DL (8.5-10.1); CHLORIDE 107 MEQ/L (98-107); CREATININE 0.67 MG/DL (0.50-1.00); GLOMERULAR FILTRATION RATE 87 ML/MIN (>89); GLUCOSE,RANDOM 76 MG/DL (74-106); MAGNESIUM 2.1 MG/DL (1.5-2.5); SODIUM (NA) 141 MEQ/L (136-145); TROPONIN I LESS THAN 0.02 NG/ML (0.02-0.05)
--- NOTE | 2018-02-16 19:40 | PD ---
Physical Exam Date Seen by Provider: Feb 16, 2018 Time Seen by Provider: 19:37 Narrative pt afib history and was in ER rapid afib then run of V tach started on Amiodarone 1 mg / min IV drip for 6 hrs then decrease admit to [facility] Data Data Last Documented VS Vital Signs Date Time Temp Pulse Resp B/P (MAP) Pulse Ox O2 Delivery O2 Flow Rate FiO2 02/16/18 19:01 136 18 121/88 (99) 97 Room Air 02/16/18 18:10 97.7 Orders Orders Electrocardiogram (02/16/18 18:04) Basic Metabolic Panel (Bmp) (02/16/18 18:04) Ckmb (Isoenzyme) Profile (02/16/18 18:04) Complete Blood Count With Diff (02/16/18 18:04) Magnesium (Mg) (02/16/18 18:04) Prothrombin Time / Inr (Pt) (02/16/18 18:04) Act Partial Throm Time (Ptt) (02/16/18 18:04) Troponin I (02/16/18 18:04) Chest, Single Ap (02/16/18 18:04) Ecg Monitoring (02/16/18 18:04) Iv Access Insert/Monitor (02/16/18 18:04) Oximetry (02/16/18 18:04) Sodium Chloride 0.9% Flush (Ns Flush) (02/16/18 18:15) B-Type Natriuretic Peptide (02/16/18 18:17) Metoprolol Tartrate Inj (Lopressor Inj) (02/16/18 18:45) ^ Medication Alert (02/16/18 19:35) ^ Discontinue (02/16/18 19:35) Dextrose 5% In Wate... W/Amiodarone Inj (02/16/18 19:45) Vital Signs (Adult) MILENA.Q4H (02/16/18 19:35) Admit Order (Ed Use Only) (02/16/18 19:54) Labs Laboratory Tests Test 02/16/18 18:15 White Blood Count 3.6 TH/MM3 Red Blood Count 4.11 MIL/MM3 Hemoglobin 13.5 GM/DL Hematocrit 41.1 % Mean Corpuscular Volume 99.8 FL Mean Corpuscular Hemoglobin 32.8 PG Mean Corpuscular Hemoglobin Concent 32.8 % Red Cell Distribution Width 14.9 % Platelet Count 227 TH/MM3 Mean Platelet Volume 8.1 FL Neutrophils (%) (Auto) 56.8 % Lymphocytes (%) (Auto) 26.6 % Monocytes (%) (Auto) 12.2 % Eosinophils (%) (Auto) 3.0 % Basophils (%) (Auto) 1.4 % Neutrophils # (Auto) 2.0 TH/MM3 Lymphocytes # (Auto) 1.0 TH/MM3 Monocytes # (Auto) 0.4 TH/MM3 Eosinophils # (Auto) 0.1 TH/MM3 Basophils # (Auto) 0.0 TH/MM3 CBC Comment DIFF FINAL Differential Comment Prothrombin Time 10.2 SEC Prothromb Time International Ratio 1.0 RATIO Activated Partial Thromboplast Time 26.1 SEC Blood Urea Nitrogen 12 MG/DL Creatinine 0.67 MG/DL Random Glucose 76 MG/DL Calcium Level 8.2 MG/DL Magnesium Level 2.1 MG/DL Sodium Level 141 MEQ/L Potassium Level 4.3 MEQ/L Chloride Level 107 MEQ/L Carbon Dioxide Level 26.2 MEQ/L Anion Gap 8 MEQ/L Estimat Glomerular Filtration Rate 87 ML/MIN Total Creatine Kinase 64 U/L Troponin I LESS THAN 0.02 NG/ML B-Type Natriuretic Peptide 145 PG/ML [facility] Medical Record Reviewed: Yes Supervised Visit with CURTIS: Yes Narrative Course Patient is still tachycardic at 130 had a run of V. tach in front of me however she was completely asymptomatic went back into normal sinus she is started on amiodarone drip 1 mg a minute admitted to CICU for close cardiac monitoring she is having runs of perfuse V. tach that resolved on their own without any awareness that she is in it and has no symptoms whatsoever as I witnessed as listed in front of her bedside and saw the monitor showing 10 beats of V. tach going back into sinus tachycardia Critical Care Narrative Supervise critical care is 30 minutes of cardiac care time on this patient Diagnosis Primary Impression: Ventricular tachycardia, automatic Additional Impression: Ventricular tachycardia Admitting Information Admitting Physician Requests: Jimbo De Leon MD Feb 16, 2018 19:40
[2018-02-16] MEDS ORDERED: AMIODARONE INJ 450 MG in DEXTROSE 5% IN WATE(EXCEL) INJ 241 ML IV PRN ×2 (19:45)
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
[2018-02-16] MEDS ORDERED: DILTIAZEM HCL 30 MG TAB PO ONE (21:00)
[2018-02-16] MEDS ORDERED: ONDANSETRON ODT 4 MG TAB PO PRN (21:15)
[2018-02-16] MEDS ORDERED: NALOXONE HCL 0.4 MG/ML AMP IV PUSH PRN (21:15)
[2018-02-16] MEDS ORDERED: SODIUM CHLORIDE 0.9% FLUSH 10 ML FLUSH IV FLUSH PRN (21:15)
[2018-02-16] MEDS ORDERED: ACETAMINOPHEN 325 MG TAB PO PRN (21:15)
[2018-02-16] MEDS ORDERED: MAGNESIUM HYDROXIDE SUSP 30 ML CUP PO PRN (21:15)
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
[2018-02-16] MEDS ORDERED: HEPARIN SODIUM - SQ 10,000 UNITS/ML VIAL SQ SCH (22:00)
[2018-02-16 22:18] LABS: BACTERIA, URINE MANY /hpf; BILIRUBIN, URINE NEG (NEG); BLOOD, URINE NEG (NEG); GLUCOSE,URINE NEG (NEG); KETONE, URINE NEG (NEG); NITRITE,URINE NEG (NEG); SQUAMOUS EPITHELIAL CELL URINE <1 /hpf (0-5); URINE COLOR Straw (YELLW/STRAW); URINE LEUKOCYTE ESTERASE NEG (NEG)
[2018-02-17] VITALS (31 sets, daily range): BP systolic 100–112; BP diastolic 68–79; PULSE 112–128; RESP 17–18; TEMP 97.7–98; O2SAT 91–97
[2018-02-17] MEDS: DILTIAZEM HCL 60 MG TAB PO SCH ×2 (00:25→06:13)
[2018-02-17] MEDS ORDERED: DILTIAZEM HCL 30 MG TAB PO ONE (02:30)
[2018-02-17 05:15] LABS: AUTOMATED NEUTROPHIL # 1.7 TH/MM3 (1.8-7.7); BASOPHIL % 1.1 % (0.0-2.0); EOSINOPHIL # 0.1 TH/MM3 (0-0.4); EOSINOPHIL % 3.4 % (0.0-4.0); HEMATOCRIT 37.5 % (35.0-46.0); HEMOGLOBIN 12.5 GM/DL (11.6-15.3); LYMPH % 24.6 % (9.0-44.0); LYMPHOCYTE # 0.8 TH/MM3 (1.0-4.8); MEAN CELL VOLUME 98.5 FL (80.0-100.0); MEAN CORPUSCULAR HEMOGLOBIN 32.9 PG (27.0-34.0); MEAN CORPUSCULAR HGB CONC 33.5 % (32.0-36.0); MEAN PLATELET VOLUME 7.5 FL (7.0-11.0); MONO % 14.4 % (0.0-8.0); MONOCYTE # 0.4 TH/MM3 (0-0.9); NEUT % 56.5 % (16.0-70.0); PLATELET COUNT 212 TH/MM3 (150-450); RED BLOOD COUNT 3.81 MIL/MM3 (4.00-5.30); RED CELL DISTRIBUTION WIDTH 14.9 % (11.6-17.2); WHITE BLOOD COUNT 3.1 TH/MM3 (4.0-11.0)
[2018-02-17 05:21] LABS: INTERNATIONAL NORMALIZED RATIO 1.1 RATIO; PROTHROMBIN TIME - PATIENT 10.8 SEC (9.8-11.6)
[2018-02-17 05:45] LABS: ALBUMIN 2.7 GM/DL (3.4-5.0); ALT (GPT) 62 U/L (10-53); AST (GOT) 80 U/L (15-37); BICARBONATE 27.1 MEQ/L (21.0-32.0); BLOOD UREA NITROGEN 10 MG/DL (7-18); CALCIUM 7.8 MG/DL (8.5-10.1); CHLORIDE 111 MEQ/L (98-107); CREATININE 0.57 MG/DL (0.50-1.00); GLOMERULAR FILTRATION RATE 105 ML/MIN (>89); GLUCOSE,RANDOM 64 MG/DL (74-106); SODIUM (NA) 144 MEQ/L (136-145)
[2018-02-17 05:54] LABS: ALKALINE PHOSPHATASE 133 U/L (45-117); TOTAL BILIRUBIN ADULT 0.4 MG/DL (0.2-1.0); TOTAL PROTEIN 5.7 GM/DL (6.4-8.2); TROPONIN I LESS THAN 0.02 NG/ML (0.02-0.05)
[2018-02-17] MEDS: AMIODARONE INJ 450 MG in SODIUM CHLOR 0.9% (EXCEL) INJ 241 ML IV PRN (06:49)
[2018-02-17] MEDS: PANTOPRAZOLE SOD 20 MG DELAYED RELEASE TAB PO SCH (08:33)
[2018-02-17] MEDS: OXYBUTYNIN CHLORIDE 5 MG TAB PO SCH ×4 (08:33→20:34)
[2018-02-17] MEDS: SODIUM CHLORIDE 0.9% FLUSH 10 ML FLUSH IV FLUSH SCH ×2 (08:34→20:34)
[2018-02-17] MEDS: DOCUSATE SODIUM 50 MG/SENNA 8.6 MG TAB PO SCH ×2 (08:34→20:35)
--- NOTE | 2018-02-17 08:54 | MB ---
cc: Ruben Angel MD DATE: 02/17/2018 REASON FOR CONSULTATION: Evaluation of rapid atrial fibrillation. HISTORY OF PRESENT ILLNESS: This is a 72-year-old female followed by Dr. Gutierrez. She has also seeing my colleague, Dr. Saleh, but has not been seen in the office since 11/22/2016. This patient has a history of mitral valve repair for mitral regurgitation. She has a [employer] pacemaker. Her last echo was 07/01/2017 showing an ejection fraction of 50-55% with mild LVH, moderate MR, moderate to severe TR and a left atrial size of 4.1 cm. She was in atrial fibrillation at that time. Has not been on anticoagulation. Apparently in the past, would not consent to it. Speaking to her now, she does not remember saying that and she is willing to go on a blood thinner. She apparently has been asymptomatic, but was seen in the office by Dr. Gutierrez and was in atrial fibrillation with a rapid ventricular rate and was sent over to the hospital. The patient denies any chest pain, shortness of breath, dizziness, or palpitations. She is sedentary. Her daughter lives with her in [place]. She is not very active. She has never smoked. She has chronic lower extremity edema, which according to her, has not really changed much. PAST MEDICAL HISTORY: Includes paroxysmal atrial fibrillation. She had a previous ablation in 09/2009. Sounds like, however, she has been in persistent atrial fibrillation. History of fibromyalgia, arthritis in her back and in her joints, which she takes hydrocodone and occasional NSAIDs. I do not know the status of coronary artery disease. Her last nuclear test was normal and I do not find results of any catheterizations in the records here. She has had previous gastric bypass for obesity. She is certainly not obese now. She has a [employer] pacemaker. PAST SURGICAL HISTORY: Includes an ablation in 09/2009, hysterectomy, previous catheterizations, one in 2000 and a repeat 2007, but I do not have the results. Gastric bypass, but she had a DVT prior and had a [place] filter. MEDICATIONS: Her medications are charted. It looks like she was on Diltiazem 240 daily before admission. She takes amoxicillin intermittently for poor dentition and mouth sores. ALLERGIES: INCLUDE AMLODIPINE, X-RAY CONTRAST, DICLOFENAC. FAMILY HISTORY: Positive for Alzheimer's and [place] in the father, Alzheimer's in the mother and a myocardial infarction in the father. SOCIAL HISTORY: Does drink, but only 1 a day according to her. She does not smoke. She is . REVIEW OF SYSTEMS: Notable for arthritic pain. Denies any recent bleeding. Her remaining review of systems is negative. PHYSICAL EXAMINATION: VITAL SIGNS: Charted. GENERAL: She is an elderly, alert, oriented, female who does not appear in acute distress. She admits that her memory is diminished. HEENT: Unremarkable. NECK: Shows no JVD. CHEST: Clear to auscultation. CARDIAC: S1, S2, regular rate and rhythm, maybe a 1/6 systolic murmur at most. ABDOMEN: Soft, nontender. EXTREMITIES: No clubbing or cyanosis. She has got venous insufficiency changes with hemosiderosis in the calves and somewhat brawny edema in the feet and lower calves. LABORATORY DATA: EKG shows atrial fibrillation with a ventricular rate around 124. There are no acute ST-T wave changes. Her chest x-ray shows no acute disease. Her troponins have been negative. AST, ALT and alkaline phosphatase are all elevated. Creatinine is normal 0.57. TSH is normal. IMPRESSION: Atrial fibrillation with a controlled ventricular rate. It is unclear how long this has been on going. We will get a [employer] rep to evaluate her device, which may be helpful in that regard. She is fairly asymptomatic. She is not getting regular followup like she should. PLAN: I am increasing her diltiazem to 90 q. 6 hours. She is currently on IV amiodarone. I am going to hold off on adding a beta biju currently because the blood pressure is somewhat low. Dr. Hunt is going to be womens health nurse practitioner with me over the weekend, so I will have him see her for additional advice on A. fibrillation management. I will go ahead and initiate Apixaban 5 b.i.d. which is the appropriate dose for her age, body weight and creatinine and stop the subcutaneous heparin. Further therapy to be determined. Ruben Angel MD VEW/DL , 08:32 AM , 08:52 AM
[2018-02-17] MEDS ORDERED: DILTIAZEM-CD 240 MG CAP ER PO SCH (09:00)
[2018-02-17] MEDS: APIXABAN 5 MG TABLET PO SCH ×2 (09:31→20:34)
--- NOTE | 2018-02-17 11:04 | HHI.FPPN ---
Subjective Remarks No acute events overnight. Patient resting comfortably in bed. Patient denies dizziness, fatigue, syncope , palpitations, chest pain, shortness of breath. Patient's heart rate and cardiac telemetry 125. Upon reviewing patient's cardiac telemetry strips in the ED patient was going into V. tach twice. Patient was placed on amiodarone drip. will continue amiodarone drip. Cardizem increased to 90 mg q6hr and patient currently on Eliquis. Patient has no complaints this morning. (Belgica Norman MD R1) Objective Vitals Vital Signs Date Time Temp Pulse Resp B/P (MAP) Pulse Ox O2 Delivery O2 Flow Rate FiO2 02/17/18 09:51 95 21 02/17/18 08:08 98.0 125 17 102/68 (79) 91 02/17/18 08:03 125 102/68 02/17/18 07:00 127 02/17/18 06:50 129 113/83 02/17/18 06:49 129 113/83 02/17/18 06:00 124 02/17/18 05:00 124 02/17/18 04:00 119 02/17/18 03:12 97.7 124 18 112/70 (84) 94 02/17/18 03:00 124 02/17/18 02:25 124 112/70 02/17/18 02:00 112 02/17/18 01:00 124 02/17/18 00:00 128 02/16/18 23:00 135 02/16/18 22:41 97.5 127 20 120/90 (100) 100 02/16/18 21:18 98 21 02/16/18 20:23 132 16 119/79 (92) 100 Room Air 02/16/18 20:23 131 119/79 02/16/18 19:01 136 18 121/88 (99) 97 Room Air 02/16/18 18:10 97.7 132 20 103/68 (80) 99 Room Air 02/16/18 18:10 97.7 133 20 103/68 (80) 99 Room Air 02/16/18 17:58 97.7 137 20 103/68 (80) 99 I/O 02/16/18 02/16/18 02/16/18 02/17/18 02/17/18 02/17/18 07:00 15:00 23:00 07:00 15:00 23:00 Intake Total 730 ml Output Total 400 ml 600 ml Balance -400 ml 130 ml Intake Oral 480 ml IV Total 250 ml Output Urine Total 400 ml 600 ml # Voids 1 1 # Bowel Movements 1 (Belgica Norman MD R1) Result Diagram: 02/17/1844102/17/18441 Objective Remarks GENERAL: This is a well-nourished, well-developed elderly female in no apparent distress. SKIN: No rashes; one ecchymosis on right lower arm. Skin is cool and dry. There are scabbed lesions c/w venous stasis in bilateral LEs below the knees. HEAD: Atraumatic. Normocephalic. Temporal muscle wasting; no scalp tenderness. EYES: Pupils equal round and reactive. Extraocular motions intact. No scleral icterus. No injection or drainage. ENT: Nose without drainage. Throat without erythema, tonsillar hypertrophy or exudate. Uvula midline. Airway patent. Poor dentition with caries present. NECK: Trachea midline. No JVD or lymphadenopathy. Supple, nontender, no meningeal signs. CARDIOVASCULAR: Tachycardia in 125s with irregular rhythm without murmurs, gallops, or rubs. RESPIRATORY: Clear to auscultation. Breath sounds equal bilaterally. No wheezes , rales, or rhonchi. GASTROINTESTINAL: Abdomen soft, non-tender, nondistended. No hepato-splenomegaly , or palpable masses. No guarding. MUSCULOSKELETAL: Extremities without clubbing or cyanosis. 1+ pitting edema in bilateral LEs below knees with venous stasis changes as noted above. No joint tenderness, effusion, or edema noted. No calf tenderness. Bilateral LE pulses non-palpable. There is a 4cm x 4cm sacral decubitus ulcer- stage I with skin breakdown in the centerline at the top of the gluteal cleft. NEUROLOGICAL: Awake and alert. Oriented x 3. (Belgica Norman MD R1) A/P Assessment and Plan 72 YO female with uncontrolled Afib RVR. Cardiology (Dr Oglesby) consulted. On amiodarone gtt. Anticoagulation with Eliquis. (Belgica Norman MD R1) Attending Attestation Patient seen and examined. Case reviewed and discussed with the resident team. Agree with plan of care as discussed with me and documented in the resident note. doing well overall. she is asymptomatic with her tachycardia. appreciate help from Cardiology (Milly Avilez MD) Problem List: (1) Atrial fibrillation Status: Chronic Plan: 72YO female with recent onset Afib presents from clinic with Afib RVR with rate in 130s; pt is asymptomatic--no CP, palpitations, SOB, dizziness, syncope; pt home dose Cardizem 240mg PO daily and indicates she is taking regularly. Impression: -Patient had 2 episodes of V. tach on cardiac strips in the ED -CXR negative -INR 1.0/PT 10.2/PTT 26.1 wnl -CBC with WBC 3.6 (56.8% neutrophils/12.2% monocytes) -Troponin x3 <0.02 -BNP 145 -UA with many bacteria, urine cx pending -Lopressor 5mg IV push once in ED -Amiodarone gtt started in ED -Dilt 30mg PO once in ED PLAN -Cardiology consulted, appreciate recommendations -Amiodarone gtt continued in [facility] (due to no IV Dilt) -Dilt increase to 90mg q6h -Patient started on Eliquis 5mg BID for anticoagulation (2) V-tach ICD Codes: I47.2 - Ventricular tachycardia Status: Acute Plan: Patient had 2 episodes of V. tach on cardiac strips in the ED Plan as above (3) Overactive bladder ICD Codes: N32.81 - Overactive bladder Plan: Continue home oxybutynin 5mg PO qid (4) Sacral decubitus ulcer ICD Codes: L89.159 - Pressure ulcer of sacral region, unspecified stage Plan: 4cm x 4cm ulcer at top of gluteal cleft with skin breakdown; bone not visible Stage I -Wound care consulted (5) Memory impairment ICD Codes: R41.3 - Other amnesia Status: Chronic Plan: Continue home Donepezil 10mg PO qhs (6) Polyneuropathy Status: Chronic Plan: Pt describes numbness and tingling in bilateral toes. There is no palpable pulse in bilateral ankles/feet; pt likely has moderate-severe PVD -Continue gabapentin 300mg PO qhs -Venous doppler US b/l ordered to assess for DVTs -Consider vascular consult (7) Venous stasis of lower extremity ICD Codes: I87.8 - Venous stasis of lower extremity Status: Acute Plan: Several scabbed lesions on each LE below knee with RLE worse than left. No pulses palpated at bilateral ankles. (8) Chronic back pain ICD Codes: M54.9 - Dorsalgia, unspecified; G89.29 - Other chronic pain Status: Chronic Plan: Continue home Hydrocodone (9) Dental caries ICD Codes: K02.9 - Dental caries, unspecified Plan: Continue Amoxicillin 500mg PO daily for dental ppx (10) FEN/GI/PPx Plan: Fluids: Heart healthy diet Electrolytes: wnl, will follow with daily BMP and replete as necessary GI: Protonix 20mg PO daily DVT PPx: eliquis, SCDs Zofran 4mg PO q6h nausea (11) L Atrial Ablation 10/23/09 Status: Resolved Permanent Comment: Done by Dr Whitlock at time of Valve Job. Last Edited By: Jinny Connell on Oct 27, 2009 13:57 (12) Pacemaker; Green Filter in IVC; Gastric Bypass 2000 Status: Resolved (Belgica Norman MD R1) Problem Qualifiers (1) Atrial fibrillation: Qualified Codes: I48.1 - Persistent atrial fibrillation (2) Sacral decubitus ulcer: Qualified Codes: L89.150 - Pressure ulcer of sacral region, unstageable (3) Chronic back pain: Belgica Norman MD R1 Feb 17, 2018 11:04 Milly Avilez MD Feb 19, 2018 11:18
--- NOTE | 2018-02-17 12:17 | PD.WCN.NOT ---
Wound Consult Description: Consult for PRESSURE INJURY of sacral decubitus ulcer per Dr Lazcano Communicated with: Patient RN Recommendation: Continue to encourage patient to reposition herself for comfort and off loading. Recommend to apply Calazime to inner buttocks for moisture with patient use of pads. Additional Information: Patient seen on [facility] for sacrum, coccyx, and bilateral buttocks. Patient positioned herself to her left side for assessment. Patient is noted with a pad underneath her for moisture. Patient presents with blanching erythema noted to sacrum and coccyx with no open areas visualized. Patient has a left inner buttock hardened moist callus noted measuring ~1cm x 1cm that is raised from surrounding surface. Patient states that she can reposition herself and that she knows that she does not have any open areas at this time and uses a cream at home. It was explained to her that underwriter would recommend a cream for her to use here and that she should change positions often for comfort and redistribution of pressure. Erika Regan [facility] Feb 17, 2018 12:17
[2018-02-17] MEDS: ACETAMINOPHEN/HYDROcodone 325 MG/10 MG TAB PO SCH ×3 (12:24→23:44)
[2018-02-17] MEDS: DILTIAZEM HCL 90 MG TAB PO SCH ×3 (12:24→23:44)
--- NOTE | 2018-02-17 12:39 | EKG ---
Date Performed: 02/16/2018 Time Performed: 18:08:08 PTAGE: 72 years EKG: ATRIAL FLUTTER/TACHYCARDIA WITH RAPID VENTRICULAR RESPONSE MINIMAL ST DEPRESSION ABNORMAL R HYTHM ECG Since the PREVIOUS TRACING , no significant change noted PREVIOUS TRACIN06/30/2017 14.10 DOCTOR: Leonard Davies Interpretating Date/Time 02/17/2018 12:38:22
[2018-02-17] MEDS: AMOXICILLIN (TRIHYDRATE) 500 MG CAP PO SCH (16:10)
[2018-02-17] MEDS: DONEPEZIL HCL 5 MG TAB PO SCH (20:33)
[2018-02-17] MEDS: GABAPENTIN 300 MG CAP PO SCH (20:34)
--- NOTE | 2018-02-17 23:03 | RADRPT ---
EXAM DATE: 02/17/2018 10:57 PM EDT AGE/SEX: 72 years / Female INDICATIONS: Bilateral leg swelling. CLINICAL DATA: This is the patient's initial encounter. Patient reports that signs and symptoms have been present for 1 day and indicates a pain score of 10/10. MEDICAL/SURGICAL HISTORY: Asthma. Right pop. dvt. Pacemaker. Gallbladder disease. Cervical canc er. Hepatitis. Tonsillectomy. Hysterectomy. Cholecystectomy. COMPARISON: [facility], MYOCARDIAL PERF PHARM SPECT, 07/01/2017. . TECHNIQUE: Venous ultrasound of both lower extremities was performed from the inguinal ligament to t he proximal calf. Real-time, color Doppler and spectral tracing, compression and augmentation techni ques were used. FINDINGS: Right Leg: Normal compression of the deep venous system from the inguinal region to the proximal shyann f. No echogenic clot is seen. Normal response of the venous system to augmentation and respiration. Left Leg: Normal compression of the deep venous system from the inguinal region to the proximal calf . No echogenic clot is seen. Normal response of the venous system to augmentation and respiration. Other: None. CONCLUSION: 1. Negative exam with no evidence of deep venous thrombosis. Electronically signed by: Giorgi Parrish MD 02/17/2018 11:02 PM EDT
[2018-02-18] VITALS (28 sets, daily range): BP systolic 93–112; BP diastolic 66–74; PULSE 110–123; RESP 16–20; TEMP 97.7–99; O2SAT 93–96
[2018-02-18] MEDS: AMIODARONE INJ 450 MG in SODIUM CHLOR 0.9% (EXCEL) INJ 241 ML IV PRN ×2 (01:23→18:24)
[2018-02-18 05:30] LABS: HEMATOCRIT 38.4 % (35.0-46.0); HEMOGLOBIN 12.8 GM/DL (11.6-15.3); MEAN CORPUSCULAR HEMOGLOBIN 33.3 PG (27.0-34.0); MEAN CORPUSCULAR HGB CONC 33.3 % (32.0-36.0); MEAN PLATELET VOLUME 7.9 FL (7.0-11.0); PLATELET COUNT 199 TH/MM3 (150-450); RED BLOOD COUNT 3.85 MIL/MM3 (4.00-5.30); RED CELL DISTRIBUTION WIDTH 15.1 % (11.6-17.2); WHITE BLOOD COUNT 4.1 TH/MM3 (4.0-11.0)
[2018-02-18 05:56] LABS: BICARBONATE 27.4 MEQ/L (21.0-32.0); CALCIUM 8.1 MG/DL (8.5-10.1); CREATININE 0.6 MG/DL (0.50-1.00)
[2018-02-18] MEDS: ACETAMINOPHEN/HYDROcodone 325 MG/10 MG TAB PO SCH ×3 (06:19→17:53)
[2018-02-18] MEDS: DILTIAZEM HCL 90 MG TAB PO SCH ×3 (06:19→17:44)
[2018-02-18] MEDS: SODIUM CHLORIDE 0.9% FLUSH 10 ML FLUSH IV FLUSH SCH ×2 (09:00→21:04)
[2018-02-18] MEDS: DOCUSATE SODIUM 50 MG/SENNA 8.6 MG TAB PO SCH ×3 (09:00→21:03)
--- NOTE | 2018-02-18 09:37 | HHI.FPPN ---
Subjective Remarks No acute events overnight. Patient resting comfortably in bed. HR around 114 Patient denies CP, SOB, abdominal pain, palpitations, dizziness, and N/V. Objective Vitals Vital Signs Date Time Temp Pulse Resp B/P (MAP) Pulse Ox O2 Delivery O2 Flow Rate FiO2 02/18/18 08:44 122 99/74 02/18/18 07:00 97.7 122 20 99/74 (82) 96 02/18/18 06:00 119 02/18/18 05:00 116 02/18/18 04:00 114 02/18/18 03:45 98.0 118 19 103/69 (80) 96 02/18/18 03:00 115 02/18/18 02:00 114 02/18/18 01:23 111 102/70 02/18/18 01:21 17 02/18/18 01:00 114 02/18/18 00:00 118 02/17/18 23:38 98.0 121 18 102/70 (81) 97 02/17/18 23:00 122 02/17/18 22:00 122 02/17/18 21:00 122 02/17/18 20:00 122 02/17/18 19:50 97.9 123 18 100/73 (82) 95 02/17/18 19:00 124 02/17/18 18:18 125 02/17/18 17:38 122 02/17/18 16:00 120 02/17/18 15:31 122 103/79 02/17/18 15:25 98.0 122 17 103/79 (87) 93 02/17/18 15:00 121 02/17/18 14:00 122 02/17/18 13:00 120 02/17/18 12:24 121 103/79 02/17/18 12:05 97.9 121 18 103/79 (87) 94 02/17/18 12:00 120 02/17/18 11:00 123 02/17/18 10:00 124 02/17/18 09:51 95 21 I/O 02/17/18 02/17/18 02/17/18 02/18/18 02/18/18 02/18/18 07:00 15:00 23:00 07:00 15:00 23:00 Intake Total 730 ml 960 ml 1030 ml Output Total 600 ml 1330 ml 1800 ml Balance 130 ml -370 ml -770 ml Intake Oral 480 ml 960 ml 780 ml IV Total 250 ml 250 ml Output Urine Total 600 ml 1330 ml 1800 ml # Voids 1 # Bowel Movements 1 2 1 Result Diagram: 02/18/1843202/18/18432 Objective Remarks GENERAL: This is a well-nourished, well-developed elderly female in no apparent distress. SKIN: No rashes; one ecchymosis on right lower arm. Skin is cool and dry. There are scabbed lesions c/w venous stasis in bilateral LEs below the knees. HEAD: Atraumatic. Normocephalic. Temporal muscle wasting; no scalp tenderness. EYES: Pupils equal round and reactive. Extraocular motions intact. No scleral icterus. No injection or drainage. ENT: Nose without drainage. Throat without erythema, tonsillar hypertrophy or exudate. Uvula midline. Airway patent. Poor dentition with caries present. NECK: Trachea midline. No JVD or lymphadenopathy. Supple, nontender, no meningeal signs. CARDIOVASCULAR: Tachycardia in 125s with irregular rhythm without murmurs, gallops, or rubs. RESPIRATORY: Clear to auscultation. Breath sounds equal bilaterally. No wheezes , rales, or rhonchi. GASTROINTESTINAL: Abdomen soft, non-tender, nondistended. No hepato-splenomegaly , or palpable masses. No guarding. MUSCULOSKELETAL: Extremities without clubbing or cyanosis. 1+ pitting edema in bilateral LEs below knees with venous stasis changes as noted above. No joint tenderness, effusion, or edema noted. No calf tenderness. Bilateral LE pulses non-palpable. There is a 4cm x 4cm sacral decubitus ulcer- stage I with skin breakdown in the centerline at the top of the gluteal cleft. NEUROLOGICAL: Awake and alert. Oriented x 3. A/P Assessment and Plan 72 YO female with uncontrolled Afib RVR. Cardiology (Dr Oglesby) consulted. On amiodarone gtt. Anticoagulation with Eliquis. Discharge Planning unclear timetable, pending clinical improvement cardiology on board Problem List: (1) Atrial fibrillation Status: Chronic Plan: 72YO female with recent onset Afib presents from clinic with Afib RVR with rate in 130s; pt is asymptomatic--no CP, palpitations, SOB, dizziness, syncope; pt home dose Cardizem 240mg PO daily and indicates she is taking regularly. Impression: -Patient had 2 episodes of V. tach on cardiac strips in the ED -CXR negative -INR 1.0/PT 10.2/PTT 26.1 wnl -CBC with WBC 3.6 (56.8% neutrophils/12.2% monocytes) -Troponin x3 <0.02 -BNP 145 -Lopressor 5mg IV push once in ED -Amiodarone gtt started in ED -Dilt 30mg PO once in ED PLAN -Cardiology consulted, appreciate recommendations -Rate not controlled, BP too low to increase meds. Consider ablation on Tuesday by Dr. Hunt. -Amiodarone gtt continued in [facility] (due to no IV Dilt) -Continue Dilt 90mg q6h -Continue Eliquis 5mg BID for anticoagulation (2) V-tach ICD Codes: I47.2 - Ventricular tachycardia Status: Acute Plan: Patient had 2 episodes of V. tach on cardiac strips in the ED Plan as above (3) UTI (urinary tract infection) ICD Codes: N39.0 - Urinary tract infection, site not specified Plan: Urine culture positive for E.coli, will await sensitivities Start Nitrofurantoin 100mg BID (4) Overactive bladder ICD Codes: N32.81 - Overactive bladder Plan: Continue home oxybutynin 5mg PO qid (5) Sacral decubitus ulcer ICD Codes: L89.159 - Pressure ulcer of sacral region, unspecified stage Plan: 4cm x 4cm ulcer at top of gluteal cleft with skin breakdown; bone not visible Stage I -Wound care consulted Continue to encourage patient to reposition herself for comfort and off loading. Recommend to apply Calazime to inner buttocks for moisture with patient use of pads. (6) Memory impairment ICD Codes: R41.3 - Other amnesia Status: Chronic Plan: Continue home Donepezil 10mg PO qhs (7) Polyneuropathy Status: Chronic Plan: Pt describes numbness and tingling in bilateral toes. There is no palpable pulse in bilateral ankles/feet; pt likely has moderate-severe PVD -Continue gabapentin 300mg PO qhs -Venous doppler US negative for DVTs (8) Venous stasis of lower extremity ICD Codes: I87.8 - Venous stasis of lower extremity Status: Acute Plan: Several scabbed lesions on each LE below knee with RLE worse than left. No pulses palpated at bilateral ankles. (9) Chronic back pain ICD Codes: M54.9 - Dorsalgia, unspecified; G89.29 - Other chronic pain Status: Chronic Plan: Continue home Hydrocodone (10) Dental caries ICD Codes: K02.9 - Dental caries, unspecified Plan: Continue Amoxicillin 500mg PO daily for dental ppx (11) FEN/GI/PPx Plan: Fluids: Heart healthy diet Electrolytes: wnl, will follow with daily BMP and replete as necessary GI: Protonix 20mg PO daily DVT PPx: eliquis, SCDs Zofran 4mg PO q6h nausea (12) L Atrial Ablation 10/23/09 Status: Resolved Permanent Comment: Done by Dr Whitlock at time of Valve Job. Last Edited By: Jinny Connell on Oct 27, 2009 13:57 (13) Pacemaker; Green Filter in IVC; Gastric Bypass 2000 Status: Resolved Problem Qualifiers (1) Atrial fibrillation: Qualified Codes: I48.1 - Persistent atrial fibrillation (2) Sacral decubitus ulcer: Qualified Codes: L89.150 - Pressure ulcer of sacral region, unstageable (3) Chronic back pain: Belgica Norman MD R1 Feb 18, 2018 09:37
[2018-02-18] MEDS: APIXABAN 5 MG TABLET PO SCH ×2 (09:39→21:04)
[2018-02-18] MEDS: OXYBUTYNIN CHLORIDE 5 MG TAB PO SCH ×4 (09:39→21:03)
[2018-02-18] MEDS: PANTOPRAZOLE SOD 20 MG DELAYED RELEASE TAB PO SCH (09:39)
[2018-02-18] MEDS: AMOXICILLIN (TRIHYDRATE) 500 MG CAP PO SCH (09:39)
[2018-02-18] MEDS ORDERED: SODIUM CHLORID 0.9% 500 ML INJ 500 ML IV ONE (09:45)
--- NOTE | 2018-02-18 11:35 | PD.CARD.PN ---
Subjective Subjective Remarks Feels OK. No complaints Objective Medications Current Medications Medications (Trade) Dose Ordered Sig/Tony Route Start Time Stop Time Status Last Admin (NS Flush) 2 ml UNSCH PRN IV FLUSH 02/16/18 21:15 (NS Flush) 2 ml BID IV FLUSH 02/17/18 09:00 02/17/18 08:34 (Tylenol) 650 mg Q4H PRN PO 02/16/18 21:15 (Zofran Odt) 4 mg Q6H PRN PO 02/16/18 21:15 (Narcan Inj) 0.4 mg UNSCH PRN IV PUSH 02/16/18 21:15 ([place]-Colace) 1 tab BID PO 02/17/18 09:00 02/18/18 09:00 (Milk Of Paco [place]ita) 30 ml Q12H PRN PO 02/16/18 21:15 (Aricept) 10 mg HS PO 02/17/18 21:00 02/17/18 20:33 (Neurontin) 300 mg HS PO 02/17/18 21:00 02/17/18 20:34 (Ditropan) 5 mg QID PO 02/17/18 09:00 02/18/18 09:39 (Protonix) 20 mg DAILY PO 02/17/18 09:00 02/18/18 09:39 Amiodarone HCl 450 mg/Sodium Chloride 250 ml @ 33.33 mls/ hr Q7H31M PRN IV 02/17/18 06:15 02/18/18 01:23 (Cardizem) 90 mg Q6HR PO 02/17/18 12:00 02/18/18 06:19 (Eliquis) 5 mg BID PO 02/17/18 09:00 02/18/18 09:39 ([place] 10-325 Mg) 1 tab Q6HR PO 02/17/18 12:00 02/18/18 06:19 (Trimox) 500 mg DAILY PO 02/17/18 16:00 02/18/18 09:39 Vital Signs / I&O Vital Signs Date Time Temp Pulse Resp B/P (MAP) Pulse Ox O2 Delivery O2 Flow Rate FiO2 02/18/18 08:44 122 99/74 02/18/18 07:00 97.7 122 20 99/74 (82) 96 02/18/18 06:00 119 02/18/18 05:00 116 02/18/18 04:00 114 02/18/18 03:45 98.0 118 19 103/69 (80) 96 02/18/18 03:00 115 02/18/18 02:00 114 02/18/18 01:23 111 102/70 02/18/18 01:21 17 02/18/18 01:00 114 02/18/18 00:00 118 02/17/18 23:38 98.0 121 18 102/70 (81) 97 02/17/18 23:00 122 02/17/18 22:00 122 02/17/18 21:00 122 02/17/18 20:00 122 02/17/18 19:50 97.9 123 18 100/73 (82) 95 02/17/18 19:00 124 02/17/18 18:18 125 02/17/18 17:38 122 02/17/18 16:00 120 02/17/18 15:31 122 103/79 02/17/18 15:25 98.0 122 17 103/79 (87) 93 02/17/18 15:00 121 02/17/18 14:00 122 02/17/18 13:00 120 02/17/18 12:24 121 103/79 02/17/18 12:05 97.9 121 18 103/79 (87) 94 02/17/18 12:00 120 I/O 02/17/18 02/17/18 02/17/18 02/18/18 02/18/18 02/18/18 07:00 15:00 23:00 07:00 15:00 23:00 Intake Total 730 ml 960 ml 1030 ml Output Total 600 ml 1330 ml 1800 ml Balance 130 ml -370 ml -770 ml Intake Oral 480 ml 960 ml 780 ml IV Total 250 ml 250 ml Output Urine Total 600 ml 1330 ml 1800 ml # Voids 1 # Bowel Movements 1 2 1 Physical Exam Alert Daughter told me she has mild dementia chest clear CV S1S2 irr, irr no murmur Abd soft No edema Laboratory Laboratory Tests Test 02/18/18 04:33 White Blood Count 4.1 TH/MM3 Red Blood Count 3.85 MIL/MM3 Hemoglobin 12.8 GM/DL Hematocrit 38.4 % Mean Corpuscular Volume 100.0 FL Mean Corpuscular Hemoglobin 33.3 PG Mean Corpuscular Hemoglobin Concent 33.3 % Red Cell Distribution Width 15.1 % Platelet Count 199 TH/MM3 Mean Platelet Volume 7.9 FL Blood Urea Nitrogen 8 MG/DL Creatinine 0.60 MG/DL Random Glucose 74 MG/DL Calcium Level 8.1 MG/DL Sodium Level 146 MEQ/L Potassium Level 4.0 MEQ/L Chloride Level 111 MEQ/L Carbon Dioxide Level 27.4 MEQ/L Anion Gap 8 MEQ/L Estimat Glomerular Filtration Rate 99 ML/MIN Imaging Last 48 hours Impressions Lower Extremity Ultrasound 02/17/18 0000 Signed Impressions: CONCLUSION: 1. Negative exam with no evidence of deep venous thrombosis. Chest X-Ray 02/16/18 1804 Signed Impressions: CONCLUSION: No acute cardiopulmonary disease Assessment and Plan Problem List: (1) L Atrial Ablation 10/23/09 Status: Resolved Permanent Comment: Done by Dr Whitlock at time of Valve Job. Last Edited By: Jinny Connell on Oct 27, 2009 13:57 (2) Atrial fibrillation Status: Chronic Plan: Rate not controlled. BP too low to go up and meds (3) Pacemaker ICD Codes: Z95.0 - Presence of cardiac pacemaker Status: Acute Assessment and Plan hopefully Dr. Hunt can ablate on Tuesday Problem Qualifiers (1) Atrial fibrillation: Qualified Codes: I48.1 - Persistent atrial fibrillation Ruben Angel MD Feb 18, 2018 11:35
[2018-02-18] MEDS: NITROFURANTOIN MONOHYD MACROCR 100 MG CAP PO SCH ×2 (12:49→17:44)
--- NOTE | 2018-02-18 17:22 | EKG ---
Date Performed: 02/17/2018 Time Performed: 06:35:34 PTAGE: 72 years EKG: Atrial fibrillation/flutter with rapid ventricular rate, and is persistent compared to the prior tracing. Abnormal ECG PREVIOUS TRACING : 02/17/2018 00.22 DOCTOR: Ruben Angel Interpretating Date/Time 02/18/2018 17:21:19
--- NOTE | 2018-02-18 17:24 | EKG ---
Date Performed: 02/17/2018 Time Performed: 00:22:32 PTAGE: 72 years EKG: Atrial fibrillation with rapid ventricular response Demand pacing Inferior and anterior ST- T changes are nonspecific Ventricular premature complexes Rapid rate continues from prior Abnormal EC G PREVIOUS TRACING : 02/16/2018 18.08 DOCTOR: Ruben Angel Interpretating Date/Time 02/18/2018 17:21:54
[2018-02-18] MEDS: DONEPEZIL HCL 5 MG TAB PO SCH (21:03)
[2018-02-18] MEDS: GABAPENTIN 300 MG CAP PO SCH (21:03)
[2018-02-19] VITALS (29 sets, daily range): BP systolic 84–109; BP diastolic 58–78; PULSE 70–117; RESP 16–20; TEMP 98–98.6; O2SAT 93–98
[2018-02-19] MEDS: DILTIAZEM HCL 90 MG TAB PO SCH ×4 (00:55→17:14)
[2018-02-19] MEDS: ACETAMINOPHEN/HYDROcodone 325 MG/10 MG TAB PO SCH ×4 (00:56→17:14)
[2018-02-19 06:22] LABS: HEMATOCRIT 38.6 % (35.0-46.0); HEMOGLOBIN 12.7 GM/DL (11.6-15.3); MEAN CELL VOLUME 95.3 FL (80.0-100.0); MEAN CORPUSCULAR HEMOGLOBIN 31.3 PG (27.0-34.0); MEAN CORPUSCULAR HGB CONC 32.8 % (32.0-36.0); MEAN PLATELET VOLUME 8.3 FL (7.0-11.0); PLATELET COUNT 250 TH/MM3 (150-450); RED BLOOD COUNT 4.05 MIL/MM3 (4.00-5.30); RED CELL DISTRIBUTION WIDTH 15.1 % (11.6-17.2); WHITE BLOOD COUNT 10.5 TH/MM3 (4.0-11.0)
[2018-02-19] MEDS: SODIUM CHLORIDE 0.9% FLUSH 10 ML FLUSH IV FLUSH SCH ×2 (09:00→21:32)
[2018-02-19] MEDS: AMIODARONE INJ 450 MG in SODIUM CHLOR 0.9% (EXCEL) INJ 241 ML IV PRN (09:23)
[2018-02-19] MEDS: PANTOPRAZOLE SOD 20 MG DELAYED RELEASE TAB PO SCH (09:24)
[2018-02-19] MEDS: AMOXICILLIN (TRIHYDRATE) 500 MG CAP PO SCH (09:24)
[2018-02-19] MEDS: OXYBUTYNIN CHLORIDE 5 MG TAB PO SCH ×4 (09:24→21:32)
[2018-02-19] MEDS: NITROFURANTOIN MONOHYD MACROCR 100 MG CAP PO SCH ×2 (09:24→17:14)
[2018-02-19] MEDS: DOCUSATE SODIUM 50 MG/SENNA 8.6 MG TAB PO SCH ×2 (09:24→21:00)
[2018-02-19] MEDS: APIXABAN 5 MG TABLET PO SCH ×2 (09:27→21:32)
--- NOTE | 2018-02-19 10:43 | PD.CARD.PN ---
Subjective Subjective Remarks Feels OK. No complaints Objective Medications Current Medications Medications (Trade) Dose Ordered Sig/Tony Route Start Time Stop Time Status Last Admin (NS Flush) 2 ml UNSCH PRN IV FLUSH 02/16/18 21:15 (NS Flush) 2 ml BID IV FLUSH 02/17/18 09:00 02/18/18 21:04 (Tylenol) 650 mg Q4H PRN PO 02/16/18 21:15 (Zofran Odt) 4 mg Q6H PRN PO 02/16/18 21:15 (Narcan Inj) 0.4 mg UNSCH PRN IV PUSH 02/16/18 21:15 ([place]-Colace) 1 tab BID PO 02/17/18 09:00 02/19/18 09:24 (Milk Of [place] Liq) 30 ml Q12H PRN PO 02/16/18 21:15 (Aricept) 10 mg HS PO 02/17/18 21:00 02/18/18 21:03 (Neurontin) 300 mg HS PO 02/17/18 21:00 02/18/18 21:03 (Ditropan) 5 mg QID PO 02/17/18 09:00 02/19/18 09:24 (Protonix) 20 mg DAILY PO 02/17/18 09:00 02/19/18 09:24 Amiodarone HCl 450 mg/Sodium Chloride 250 ml @ 33.33 mls/ hr Q7H31M PRN IV 02/17/18 06:15 02/19/18 09:23 (Cardizem) 90 mg Q6HR PO 02/17/18 12:00 02/19/18 05:02 (Eliquis) 5 mg BID PO 02/17/18 09:00 02/19/18 09:27 ([place] 10-325 Mg) 1 tab Q6HR PO 02/17/18 12:00 02/19/18 05:02 (Trimox) 500 mg DAILY PO 02/17/18 16:00 02/19/18 09:24 (Macrobid) 100 mg BIDPC PO 02/18/18 12:00 02/19/18 09:24 Vital Signs / I&O Vital Signs Date Time Temp Pulse Resp B/P (MAP) Pulse Ox O2 Delivery O2 Flow Rate FiO2 02/19/18 10:00 114 02/19/18 09:23 115 109/74 02/19/18 09:00 102 02/19/18 08:00 117 02/19/18 07:00 112 02/19/18 07:00 98.6 115 20 109/74 (86) 93 02/19/18 06:15 16 02/19/18 06:00 110 02/19/18 05:26 114 16 84/58 (67) 94 02/19/18 05:00 108 02/19/18 04:18 112 02/19/18 04:00 116 02/19/18 03:00 112 02/19/18 02:02 112 02/19/18 02:00 112 02/19/18 01:00 114 02/19/18 00:57 114 16 102/64 (77) 95 02/19/18 00:00 112 02/19/18 00:00 113 02/18/18 23:00 112 02/18/18 22:00 114 02/18/18 21:14 99.0 115 18 93/66 (75) 93 02/18/18 21:00 114 02/18/18 20:13 112 02/18/18 20:00 112 02/18/18 19:00 110 02/18/18 18:24 123 112/74 02/18/18 18:00 116 02/18/18 17:00 114 02/18/18 16:00 123 02/18/18 15:00 119 02/18/18 15:00 98.6 123 16 112/74 (87) 93 02/18/18 14:00 119 02/18/18 13:00 121 02/18/18 12:00 120 02/18/18 11:00 122 02/18/18 11:00 98.3 120 18 109/74 (86) 95 96/74 (81) 95/73 (80) I/O 02/18/18 02/18/18 02/18/18 02/19/18 02/19/18 02/19/18 06:59 14:59 22:59 06:59 14:59 22:59 Intake Total 1030 ml 960 ml 240 ml Output Total 1800 ml 1100 ml 1250 ml Balance -770 ml -140 ml -1010 ml Intake Oral 780 ml 960 ml 240 ml IV Total 250 ml Output Urine Total 1800 ml 1100 ml 1250 ml # Bowel Movements 1 Physical Exam Alert chest clear CV S1S2 irr, irr no murmur; rate still fast Abd soft No edema Maeve records reviewed. s/p #29 MV ring, stapling of LA appendage and surgical LA ablation Dr. Whitlock 10/09/2009. 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 Consult Dr. Hunt (2) Pacemaker ICD Codes: Z95.0 - Presence of cardiac pacemaker Status: Acute (3) Status post mitral valve annuloplasty ICD Codes: Z98.890 - Other specified postprocedural states Permanent Comment: #29 ring 10/09/2009 Last Edited By: Ruben Angel MD on Feb 19, 2018 10:40 (4) s/p left atrial appendage stapling 10/09/2009 (5) s/p surgical left atrial fibrillation 10/09/2009 Assessment and Plan consult Dr. Hunt in AM. ? re-ablation/cardioversion/AV node ablation Problem Qualifiers (1) Atrial fibrillation: Qualified Codes: I48.1 - Persistent atrial fibrillation Ruben Angel MD Feb 19, 2018 10:43
--- NOTE | 2018-02-19 10:44 | HHI.FPPN ---
Subjective Remarks No acute events overnight. Patient sitting up in bed. Patient has no complaints this morning. Heart rate is still not controlled. Dr. Abraham consulted for cardioversion/AV node ablation for Tuesday. Orthostatic blood pressures within normal limits per nurse. Patient denies any dizziness or fatigue when standing up. Patient has not been able to walk to the commode and to her chair. Encourage patient to walk around the hallway this morning. Informed patient that she had a positive urine culture and was started on Macrobid yesterday. Patient denies any chest pain, shortness of breath, abdominal pain, nausea and vomiting, and dysuria. (Belgica Norman MD R1) Objective Vitals Vital Signs Date Time Temp Pulse Resp B/P (MAP) Pulse Ox O2 Delivery O2 Flow Rate FiO2 02/19/18 10:00 114 02/19/18 09:23 115 109/74 02/19/18 09:00 102 02/19/18 08:00 117 02/19/18 07:00 112 02/19/18 07:00 98.6 115 20 109/74 (86) 93 02/19/18 06:15 16 02/19/18 06:00 110 02/19/18 05:26 114 16 84/58 (67) 94 02/19/18 05:00 108 02/19/18 04:18 112 02/19/18 04:00 116 02/19/18 03:00 112 02/19/18 02:02 112 02/19/18 02:00 112 02/19/18 01:00 114 02/19/18 00:57 114 16 102/64 (77) 95 02/19/18 00:00 112 02/19/18 00:00 113 02/18/18 23:00 112 02/18/18 22:00 114 02/18/18 21:14 99.0 115 18 93/66 (75) 93 02/18/18 21:00 114 02/18/18 20:13 112 02/18/18 20:00 112 02/18/18 19:00 110 02/18/18 18:24 123 112/74 02/18/18 18:00 116 02/18/18 17:00 114 02/18/18 16:00 123 02/18/18 15:00 119 02/18/18 15:00 98.6 123 16 112/74 (87) 93 02/18/18 14:00 119 02/18/18 13:00 121 02/18/18 12:00 120 02/18/18 11:00 122 02/18/18 11:00 98.3 120 18 109/74 (86) 95 96/74 (81) 95/73 (80) I/O 02/18/18 02/18/18 02/18/18 02/19/18 02/19/18 02/19/18 07:00 15:00 23:00 07:00 15:00 23:00 Intake Total 1030 ml 960 ml 240 ml Output Total 1800 ml 1100 ml 1250 ml Balance -770 ml -140 ml -1010 ml Intake Oral 780 ml 960 ml 240 ml IV Total 250 ml Output Urine Total 1800 ml 1100 ml 1250 ml # Bowel Movements 1 (Belgica Norman MD R1) Result Diagram: 02/19/18 0516 02/18/18 0433 Objective Remarks GENERAL: This is a well-nourished, well-developed elderly female in no apparent distress. ENT: Nose without drainage. Throat without erythema, tonsillar hypertrophy or exudate. Uvula midline. Airway patent. Poor dentition with caries present. NECK: Trachea midline. No JVD or lymphadenopathy. Supple, nontender, no meningeal signs. CARDIOVASCULAR: Tachycardia in 117s with irregular rhythm without murmurs, gallops, or rubs. RESPIRATORY: Clear to auscultation. Breath sounds equal bilaterally. No wheezes , rales, or rhonchi. GASTROINTESTINAL: Abdomen soft, non-tender, nondistended. No hepato-splenomegaly , or palpable masses. No guarding. MUSCULOSKELETAL: Extremities without clubbing or cyanosis. 1+ pitting edema in bilateral LEs below knees with venous stasis changes as noted above. No joint tenderness, effusion, or edema noted. No calf tenderness. Bilateral LE pulses non-palpable. There is a 4cm x 4cm sacral decubitus ulcer- stage I with skin breakdown in the centerline at the top of the gluteal cleft. NEUROLOGICAL: Awake and alert. Oriented x 3. (Belgica Norman MD R1) A/P Assessment and Plan 72 YO female with uncontrolled Afib RVR. Cardiology (Dr Oglesby) consulted. On amiodarone gtt. Anticoagulation with Eliquis. Discharge Planning unclear timetable, pending clinical improvement cardiology on board (Belgica Norman MD R1) Attending Attestation Patient seen and examined. Case reviewed and discussed with the resident team. Agree with plan of care as discussed with me and documented in the resident note. unsure if she will have ablation tomorrow. she has no ectopy or other issues like V tach at this time (Milly Avilez MD) Problem List: (1) Atrial fibrillation Status: Chronic Plan: 72YO female with recent onset Afib presents from clinic with Afib RVR with rate in 130s; pt is asymptomatic--no CP, palpitations, SOB, dizziness, syncope; pt home dose Cardizem 240mg PO daily and indicates she is taking regularly. Impression: -Patient had 2 episodes of V. tach on cardiac strips in the ED -CXR negative -INR 1.0/PT 10.2/PTT 26.1 wnl -CBC with WBC 3.6 (56.8% neutrophils/12.2% monocytes) -Troponin x3 <0.02 -BNP 145 -Lopressor 5mg IV push once in ED -Amiodarone gtt started in ED -Dilt 30mg PO once in ED PLAN -Cardiology consulted, appreciate recommendations -Rate not controlled, BP too low to increase meds. Consider cardioversion/AV node ablation on Tuesday with Dr. Hunt. -Amiodarone gtt continued in [facility] (due to no IV Dilt) -Continue Dilt 90mg q6h -Continue Eliquis 5mg BID for anticoagulation (2) V-tach ICD Codes: I47.2 - Ventricular tachycardia Status: Acute Plan: Patient had 2 episodes of V. tach on cardiac strips in the ED Plan as above (3) UTI (urinary tract infection) ICD Codes: N39.0 - Urinary tract infection, site not specified Plan: Urine culture positive for E.coli, sensitive to Macrobid continue Nitrofurantoin 100mg BID (started 02/18-), will suggest continuing antibiotics for 5-7 days (4) Overactive bladder ICD Codes: N32.81 - Overactive bladder Plan: Continue home oxybutynin 5mg PO qid (5) Sacral decubitus ulcer ICD Codes: L89.159 - Pressure ulcer of sacral region, unspecified stage Plan: 4cm x 4cm ulcer at top of gluteal cleft with skin breakdown; bone not visible Stage I -Wound care consulted Continue to encourage patient to reposition herself for comfort and off loading. Recommend to apply Calazime to inner buttocks for moisture with patient use of pads. (6) Memory impairment ICD Codes: R41.3 - Other amnesia Status: Chronic Plan: Continue home Donepezil 10mg PO qhs (7) Polyneuropathy Status: Chronic Plan: Pt describes numbness and tingling in bilateral toes. There is no palpable pulse in bilateral ankles/feet; pt likely has moderate-severe PVD -Continue gabapentin 300mg PO qhs -Venous doppler US negative for DVTs (8) Venous stasis of lower extremity ICD Codes: I87.8 - Venous stasis of lower extremity Status: Acute Plan: Several scabbed lesions on each LE below knee with RLE worse than left. No pulses palpated at bilateral ankles. (9) Chronic back pain ICD Codes: M54.9 - Dorsalgia, unspecified; G89.29 - Other chronic pain Status: Chronic Plan: Continue home Hydrocodone (10) Dental caries ICD Codes: K02.9 - Dental caries, unspecified Plan: Continue Amoxicillin 500mg PO daily for dental ppx (11) FEN/GI/PPx Plan: Fluids: Heart healthy diet Electrolytes: wnl, will follow with daily BMP and replete as necessary GI: Protonix 20mg PO daily DVT PPx: eliquis, SCDs Zofran 4mg PO q6h nausea (12) L Atrial Ablation 10/23/09 Status: Resolved Permanent Comment: Done by Dr Whitlock at time of Valve Job. Last Edited By: Jinny Connell on Oct 27, 2009 13:57 (13) Pacemaker; Green Filter in IVC; Gastric Bypass 2000 Status: Resolved (Belgica Norman MD R1) Problem Qualifiers (1) Atrial fibrillation: Qualified Codes: I48.1 - Persistent atrial fibrillation (2) Sacral decubitus ulcer: Qualified Codes: L89.150 - Pressure ulcer of sacral region, unstageable (3) Chronic back pain: Belgica Norman MD R1 Feb 19, 2018 10:44 Milly Avilez MD Feb 19, 2018 11:19
[2018-02-19] MEDS: GABAPENTIN 300 MG CAP PO SCH (21:31)
[2018-02-19] MEDS: DONEPEZIL HCL 5 MG TAB PO SCH (21:32)
[2018-02-20] VITALS (31 sets, daily range): BP systolic 87–102; BP diastolic 52–70; PULSE 84–120; RESP 16–18; TEMP 97.6–98.6; O2SAT 94–98
[2018-02-20] MEDS: ACETAMINOPHEN/HYDROcodone 325 MG/10 MG TAB PO SCH ×5 (00:43→23:49)
[2018-02-20] MEDS: DILTIAZEM HCL 90 MG TAB PO SCH ×5 (00:43→23:49)
[2018-02-20 05:39] LABS: HEMATOCRIT 36.4 % (35.0-46.0); HEMOGLOBIN 12.3 GM/DL (11.6-15.3); MEAN CELL VOLUME 98.9 FL (80.0-100.0); MEAN CORPUSCULAR HEMOGLOBIN 33.4 PG (27.0-34.0); MEAN CORPUSCULAR HGB CONC 33.7 % (32.0-36.0); MEAN PLATELET VOLUME 8.2 FL (7.0-11.0); PLATELET COUNT 184 TH/MM3 (150-450); RED BLOOD COUNT 3.68 MIL/MM3 (4.00-5.30); RED CELL DISTRIBUTION WIDTH 14.6 % (11.6-17.2); WHITE BLOOD COUNT 3.9 TH/MM3 (4.0-11.0)
[2018-02-20] MEDS: AMIODARONE INJ 450 MG in SODIUM CHLOR 0.9% (EXCEL) INJ 241 ML IV PRN (05:42)
[2018-02-20 06:02] LABS: BICARBONATE 25.5 MEQ/L (21.0-32.0); CALCIUM 8.1 MG/DL (8.5-10.1); CREATININE 0.6 MG/DL (0.50-1.00)
--- NOTE | 2018-02-20 08:40 | HHI.FPPN ---
Subjective Remarks Patient's blood pressure drop down to 99/63 overnight. Amiodarone drip was stopped until blood pressure went back up and restarted again. Patient resting comfortably in bed. Patient states that she has been able to walk to the bathroom and around the hallway without feeling symptomatic. She denies dizziness and fatigue. Patient is currently n.p.o. for possible cardiac procedure this morning. Heart rate currently is 89-114. Patient denies chest pain, shortness breath, nausea vomiting, abdominal pain, dysuria, and diarrhea. (Belgica Norman MD R1) Objective Vitals Vital Signs Date Time Temp Pulse Resp B/P (MAP) Pulse Ox O2 Delivery O2 Flow Rate FiO2 02/20/18 08:26 97.7 96 18 100/70 (80) 94 02/20/18 08:00 114 02/20/18 07:00 96 02/20/18 06:35 16 02/20/18 06:00 86 02/20/18 05:42 110 99/63 02/20/18 05:00 106 02/20/18 04:00 106 02/20/18 04:00 111 02/20/18 04:00 111 16 99/63 (75) 94 02/20/18 03:48 106 02/20/18 03:20 107 02/20/18 02:08 106 02/20/18 01:00 107 02/20/18 01:00 108 02/20/18 00:00 106 02/20/18 00:00 107 16 100/67 (78) 96 02/19/18 23:00 92 02/19/18 22:00 70 02/19/18 21:00 116 02/19/18 20:24 74 02/19/18 20:00 98.6 84 16 103/68 (80) 97 02/19/18 20:00 74 02/19/18 19:00 86 02/19/18 18:00 100 02/19/18 17:00 75 02/19/18 16:00 72 02/19/18 15:53 89 103/74 02/19/18 15:00 74 02/19/18 15:00 98.0 100 16 103/74 (84) 95 02/19/18 14:00 90 02/19/18 13:00 117 02/19/18 12:00 116 02/19/18 11:00 115 02/19/18 11:00 98.1 116 16 108/78 (88) 98 02/19/18 10:00 114 02/19/18 09:23 115 109/74 02/19/18 09:00 102 I/O 02/19/18 02/19/18 02/19/18 02/20/18 02/20/18 02/20/18 07:00 15:00 23:00 07:00 15:00 23:00 Intake Total 240 ml 900 ml 730 ml Output Total 1250 ml 1100 ml 900 ml Balance -1010 ml -200 ml -170 ml Intake Oral 240 ml 900 ml 480 ml IV Total 250 ml Output Urine Total 1250 ml 1100 ml 900 ml (Belgica Norman MD R1) Result Diagram: 02/20/18 0430 02/20/18 0430 Objective Remarks GENERAL: This is a well-nourished, well-developed elderly female in no apparent distress. ENT: Nose without drainage. Throat without erythema, tonsillar hypertrophy or exudate. Uvula midline. Airway patent. Poor dentition with caries present. NECK: Trachea midline. No JVD or lymphadenopathy. Supple, nontender, no meningeal signs. CARDIOVASCULAR: Tachycardia in 114s with irregular rhythm without murmurs, gallops, or rubs. RESPIRATORY: Clear to auscultation. Breath sounds equal bilaterally. No wheezes , rales, or rhonchi. GASTROINTESTINAL: Abdomen soft, non-tender, nondistended. No hepato-splenomegaly , or palpable masses. No guarding. MUSCULOSKELETAL: Extremities without clubbing or cyanosis. 1+ pitting edema in bilateral LEs below knees with venous stasis changes as noted above. No joint tenderness, effusion, or edema noted. No calf tenderness. Bilateral LE pulses non-palpable. There is a 4cm x 4cm sacral decubitus ulcer- stage I with skin breakdown in the centerline at the top of the gluteal cleft. NEUROLOGICAL: Awake and alert. Oriented x 3. (Belgica Norman MD R1) A/P Assessment and Plan 72 YO female with uncontrolled Afib RVR. Cardiology (Dr Oglesby) consulted. On amiodarone gtt. Anticoagulation with Eliquis. Discharge Planning Pending cardiology recommendations and clearance (Belgica Norman MD R1) Attending Attestation Medical rounds performed with Dr Cammy Norman Patient interviewed and examined Detail discussion regarding pts medical care held with Dr Norman Agree with contents of note See [place] (Kennedy Pop MD) Problem List: (1) Atrial fibrillation Status: Chronic Plan: 72YO female with recent onset Afib presents from clinic with Afib RVR with rate in 130s; pt is asymptomatic--no CP, palpitations, SOB, dizziness, syncope; pt home dose Cardizem 240mg PO daily and indicates she is taking regularly. Impression: -Patient had 2 episodes of V. tach on cardiac strips in the ED -CXR negative -INR 1.0/PT 10.2/PTT 26.1 wnl -CBC with WBC 3.6 (56.8% neutrophils/12.2% monocytes) -Troponin x3 <0.02 -BNP 145 -Lopressor 5mg IV push once in ED -Amiodarone gtt started in ED -Dilt 30mg PO once in ED PLAN -Cardiology consulted, appreciate recommendations -Rate not controlled, BP too low to increase meds. Consider cardioversion/AV node ablation today with Dr. Hunt. -Amiodarone gtt continued in [facility] (due to no IV Dilt) -Continue Dilt 90mg q6h -Continue Eliquis 5mg BID for anticoagulation (2) V-tach ICD Codes: I47.2 - Ventricular tachycardia Status: Acute Plan: Patient had 2 episodes of V. tach on cardiac strips in the ED Plan as above (3) UTI (urinary tract infection) ICD Codes: N39.0 - Urinary tract infection, site not specified Plan: Urine culture positive for E.coli, sensitive to Macrobid continue Nitrofurantoin 100mg BID (started 02/18-), will suggest continuing antibiotics for 5-7 days Repeat urine culture ordered to r/o ESBL in urine (4) Overactive bladder ICD Codes: N32.81 - Overactive bladder Plan: Continue home oxybutynin 5mg PO qid (5) Sacral decubitus ulcer ICD Codes: L89.159 - Pressure ulcer of sacral region, unspecified stage Plan: 4cm x 4cm ulcer at top of gluteal cleft with skin breakdown; bone not visible Stage I -Wound care consulted Continue to encourage patient to reposition herself for comfort and off loading. Recommend to apply Calazime to inner buttocks for moisture with patient use of pads. (6) Memory impairment ICD Codes: R41.3 - Other amnesia Status: Chronic Plan: Continue home Donepezil 10mg PO qhs (7) Polyneuropathy Status: Chronic Plan: Pt describes numbness and tingling in bilateral toes. There is no palpable pulse in bilateral ankles/feet; pt likely has moderate-severe PVD -Continue gabapentin 300mg PO qhs -Venous doppler US negative for DVTs (8) Venous stasis of lower extremity ICD Codes: I87.8 - Venous stasis of lower extremity Status: Acute Plan: Several scabbed lesions on each LE below knee with RLE worse than left. No pulses palpated at bilateral ankles. (9) Chronic back pain ICD Codes: M54.9 - Dorsalgia, unspecified; G89.29 - Other chronic pain Status: Chronic Plan: Continue home Hydrocodone (10) Dental caries ICD Codes: K02.9 - Dental caries, unspecified Plan: Continue Amoxicillin 500mg PO daily for dental ppx (11) FEN/GI/PPx Plan: Fluids: Heart healthy diet Electrolytes: wnl, will follow with daily BMP and replete as necessary GI: Protonix 20mg PO daily DVT PPx: eliquis, SCDs Zofran 4mg PO q6h nausea (12) L Atrial Ablation 10/23/09 Status: Resolved Permanent Comment: Done by Dr Whitlock at time of Valve Job. Last Edited By: Jinny Connell on Oct 27, 2009 13:57 (13) Pacemaker; Green Filter in IVC; Gastric Bypass 2000 Status: Resolved (Belgica Norman MD R1) Problem Qualifiers (1) Atrial fibrillation: Qualified Codes: I48.1 - Persistent atrial fibrillation (2) Sacral decubitus ulcer: Qualified Codes: L89.150 - Pressure ulcer of sacral region, unstageable (3) Chronic back pain: Belgica Norman MD R1 Feb 20, 2018 08:40 Kennedy Pop MD Feb 20, 2018 19:36
[2018-02-20] MEDS: OXYBUTYNIN CHLORIDE 5 MG TAB PO SCH ×4 (08:57→21:08)
[2018-02-20] MEDS: APIXABAN 5 MG TABLET PO SCH ×2 (08:57→21:07)
[2018-02-20] MEDS: PANTOPRAZOLE SOD 20 MG DELAYED RELEASE TAB PO SCH (08:57)
[2018-02-20] MEDS: NITROFURANTOIN MONOHYD MACROCR 100 MG CAP PO SCH ×2 (08:57→18:34)
[2018-02-20] MEDS: SODIUM CHLORIDE 0.9% FLUSH 10 ML FLUSH IV FLUSH SCH ×2 (08:57→21:00)
[2018-02-20] MEDS: AMOXICILLIN (TRIHYDRATE) 500 MG CAP PO SCH (08:57)
[2018-02-20] MEDS: DOCUSATE SODIUM 50 MG/SENNA 8.6 MG TAB PO SCH ×2 (08:57→21:00)
[2018-02-20] MEDS ORDERED: ACETAMINOPHEN/HYDROcodone 325 MG/10 MG TAB PO ONE (11:15)
[2018-02-20] MEDS ORDERED: SODIUM CHLORID 0.9% 500 ML INJ 500 ML IV ONE ×2 (12:45→15:15)
[2018-02-20] MEDS: GABAPENTIN 300 MG CAP PO SCH (21:08)
[2018-02-20] MEDS: DONEPEZIL HCL 5 MG TAB PO SCH (21:08)
[2018-02-21] VITALS (29 sets, daily range): BP systolic 85–105; BP diastolic 55–71; PULSE 79–119; RESP 16–18; TEMP 97.5–98; O2SAT 93–98
[2018-02-21] MEDS: DILTIAZEM HCL 90 MG TAB PO SCH ×4 (06:05→23:56)
[2018-02-21] MEDS: ACETAMINOPHEN/HYDROcodone 325 MG/10 MG TAB PO SCH ×4 (06:05→23:56)
[2018-02-21] MEDS: OXYBUTYNIN CHLORIDE 5 MG TAB PO SCH ×4 (07:59→21:25)
[2018-02-21] MEDS: AMOXICILLIN (TRIHYDRATE) 500 MG CAP PO SCH (07:59)
[2018-02-21] MEDS: APIXABAN 5 MG TABLET PO SCH ×2 (07:59→21:26)
[2018-02-21] MEDS: NITROFURANTOIN MONOHYD MACROCR 100 MG CAP PO SCH ×2 (07:59→17:46)
[2018-02-21] MEDS: SODIUM CHLORIDE 0.9% FLUSH 10 ML FLUSH IV FLUSH SCH ×2 (07:59→21:00)
[2018-02-21] MEDS: DOCUSATE SODIUM 50 MG/SENNA 8.6 MG TAB PO SCH ×2 (07:59→21:00)
[2018-02-21] MEDS: PANTOPRAZOLE SOD 20 MG DELAYED RELEASE TAB PO SCH (07:59)
--- NOTE | 2018-02-21 08:44 | MB ---
cc: Flo Hunt MD DATE: 02/20/2018 REASON FOR CONSULTATION: Atrial fibrillation with ____ ventricular response. HISTORY OF PRESENT ILLNESS: Mrs. Chow is a 72-year-old female with history of atrial fibrillation, mitral valve repair. She has a previous permanent pacemaker implant. That is at least around 7-8 years ago. She has a normal ejection fraction. She has moderate mitral regurgitation, moderate to severe tricuspid regurgitation. Apparently, she has an atrial fibrillation ablation, but she does not remember. In 2009, she has a history of gastric bypass surgery. She was admitted due to atrial fibrillation for ventricular response. During hospitalization, was put on amiodarone, Cardizem p.o. Despite that, heart rate very difficult to control and I was consulted for evaluation and management. The chart was reviewed and the patient was evaluated. ALLERGIES: MULTIPLE, AMLODIPINE, DICLOFENAC,GADODIAMIDE, GADOTERIDOL, IOHEXOL. SOCIAL HISTORY: Negative for smoking and drinking. FAMILY HISTORY: Noncontributory to her current medical condition. MEDICATIONS: Currently, she is on acetaminophen, she is on amoxicillin 500 mg a day, she is on Eliquis 5 mg twice a day, she is on Cardizem 90 mg q. 6 hours, she is on Neurontin 200 mg at bedtime, she is on Zofran, she is on Protonix. REVIEW OF SYSTEMS: Currently, she referred no chest pain, no chest discomfort, some palpitations, shortness of breath, but no fever. PHYSICAL EXAMINATION: GENERAL: Alert, fully oriented. VITAL SIGNS: Blood pressure 99/62, pulse around 110, respiratory rate 18. LUNGS: Ventilated. CARDIOVASCULAR: S1, S2, tachycardic, irregular. No gallop, no murmur heard. ABDOMEN: Soft. No mass. EXTREMITIES: No edema. ELECTROCARDIOGRAM: On hospitalization indicated atrial fibrillation with fast ventricular response. Diffuse ST changes. Some pacing P-wave. LABORATORY DATA: Hemoglobin is 12.3, white blood cell 3.9. Potassium is 2.8, creatinine 0.60. Troponin less than 0.02. ASSESSMENT AND RECOMMENDATIONS: Mrs. Chow has persistent atrial fibrillation. Heart rate very difficult to control. She cannot tolerate negative chronotropic medication because of low blood pressure. She has a in the past. She has moderate mitral regurgitation and severe tricuspid regurgitation. She already has a pacemaker. The best approach will be AV node modification and make her pacemaker dependent. This way heart rate cannot be controlled. Case extensively discussed with her. The risks, the nature and the benefits of the procedure were clearly stated to her. At this point, I asked her to think about the procedure. I will discuss that in the morning with Dr. Angel. Further decision will be taken about the management. Flo Hunt MD /RACHEL , 08:05 PM , 12:19 AM
[2018-02-21 08:58] LABS: HEMATOCRIT 38.2 % (35.0-46.0); HEMOGLOBIN 12.5 GM/DL (11.6-15.3); MEAN CORPUSCULAR HEMOGLOBIN 32.6 PG (27.0-34.0); MEAN CORPUSCULAR HGB CONC 32.6 % (32.0-36.0); MEAN PLATELET VOLUME 8.1 FL (7.0-11.0); PLATELET COUNT 187 TH/MM3 (150-450); RED BLOOD COUNT 3.82 MIL/MM3 (4.00-5.30); RED CELL DISTRIBUTION WIDTH 14.8 % (11.6-17.2); WHITE BLOOD COUNT 3.6 TH/MM3 (4.0-11.0)
[2018-02-21 09:36] LABS: BICARBONATE 24.5 MEQ/L (21.0-32.0); CALCIUM 8.1 MG/DL (8.5-10.1); CREATININE 0.65 MG/DL (0.50-1.00)
--- NOTE | 2018-02-21 09:56 | HHI.FPPN ---
Subjective Remarks No acute events overnight. Patient resting comfortably in bed. Patient states that she will have her pacemaker calibrated today. Amiodarone drip stopped for now due to low blood pressures. She reports that her blood pressure usually runs around high 80s-90s/60-70s. She denies feeling symptomatic. She denies dizziness and fatigue upon standing. She is able to walk down the hallways in the hospital. She is tolerating her diet without nausea or vomiting. Nice chest pain, shortness of breath, abdominal pain, and diarrhea. (Belgica Norman MD R1) Objective Vitals Vital Signs Date Time Temp Pulse Resp B/P (MAP) Pulse Ox O2 Delivery O2 Flow Rate FiO2 02/21/18 09:00 103 02/21/18 08:23 97.8 95 16 85/58 (67) 95 02/21/18 08:00 96 02/21/18 07:00 111 02/21/18 06:00 112 02/21/18 05:00 113 02/21/18 04:00 110 02/21/18 03:44 97.6 113 18 88/59 (69) 95 02/21/18 03:00 112 02/21/18 02:00 79 02/21/18 01:00 81 02/21/18 00:54 16 02/21/18 00:00 111 02/20/18 23:38 98.4 108 18 94/60 (71) 95 02/20/18 23:00 90 02/20/18 22:00 100 02/20/18 21:00 114 02/20/18 20:00 102 02/20/18 19:48 98.2 108 16 99/62 (74) 98 02/20/18 19:00 120 02/20/18 18:00 118 02/20/18 17:00 101 02/20/18 16:35 98.6 111 16 102/69 (80) 94 02/20/18 16:00 114 02/20/18 15:00 91 02/20/18 14:18 88/52 (64) 02/20/18 14:00 84 02/20/18 13:00 98 02/20/18 12:21 97.6 94 18 96/64 (75) 94 02/20/18 12:00 87/52 (64) 02/20/18 12:00 112 02/20/18 11:00 97 02/20/18 10:00 89 I/O 02/20/18 02/20/18 02/20/18 02/21/18 02/21/18 02/21/18 07:00 15:00 23:00 07:00 15:00 23:00 Intake Total 730 ml 0 ml 600 ml Output Total 900 ml 900 ml Balance -170 ml -900 ml 600 ml Intake Oral 480 ml 0 ml 600 ml IV Total 250 ml Output Urine Total 900 ml 900 ml # Voids 4 (Belgica Norman MD R1) Result Diagram: 02/21/18 0808 02/21/18 0808 Objective Remarks GENERAL: This is a well-nourished, well-developed elderly female in no apparent distress. CARDIOVASCULAR: Pacemaker in place along the left sternal border, tachycardia in 95-113s with irregular rhythm without murmurs, gallops, or rubs. RESPIRATORY: Clear to auscultation. Breath sounds equal bilaterally. No wheezes , rales, or rhonchi. GASTROINTESTINAL: Abdomen soft, non-tender, nondistended. No hepato-splenomegaly , or palpable masses. No guarding. MUSCULOSKELETAL: Extremities without clubbing or cyanosis. Trace edema in bilateral LEs below knees with venous stasis changes as noted above. No joint tenderness, effusion, or edema noted. No calf tenderness. Bilateral LE pulses non-palpable. There is a 4cm x 4cm sacral decubitus ulcer- stage I with skin breakdown in the centerline at the top of the gluteal cleft. NEUROLOGICAL: Awake and alert. Oriented x 3. (Belgica Norman MD R1) A/P Assessment and Plan 72 YO female with uncontrolled Afib RVR. Cardiology (Dr Oglesby) consulted. On amiodarone gtt. Anticoagulation with Eliquis. Discharge Planning Pending cardiology recommendations and clearance anticipate discharge in 1-2 days (Belgica Norman MD R1) Attending Attestation Patient seen and examined with Dr Cammy Norman EMR reviewed Agree with contents of above note Decision making discussed in detail with Dr Norman See Orders (Kennedy Pop MD) Problem List: (1) Atrial fibrillation Status: Chronic Plan: 72YO female with recent onset Afib presents from clinic with Afib RVR with rate in 130s; pt is asymptomatic--no CP, palpitations, SOB, dizziness, syncope; pt home dose Cardizem 240mg PO daily and indicates she is taking regularly. Impression: -Patient had 2 episodes of V. tach on cardiac strips in the ED -CXR negative -INR 1.0/PT 10.2/PTT 26.1 wnl -CBC with WBC 3.6 (56.8% neutrophils/12.2% monocytes) -Troponin x3 <0.02 -BNP 145 -Lopressor 5mg IV push once in ED -Amiodarone gtt started in ED -Dilt 30mg PO once in ED PLAN -Cardiology consulted, appreciate recommendations -Rate not controlled, BP too low to increase meds. -Patient will have pacemaker calibrated today -Amiodarone gtt continued in [facility] (due to no IV Dilt)- held for now due to low blood pressures -Continue Dilt 90mg q6h -Continue Eliquis 5mg BID for anticoagulation (2) V-tach ICD Codes: I47.2 - Ventricular tachycardia Status: Acute Plan: Patient had 2 episodes of V. tach on cardiac strips in the ED Plan as above (3) UTI (urinary tract infection) ICD Codes: N39.0 - Urinary tract infection, site not specified Plan: Urine culture positive for E.coli, sensitive to Macrobid continue Nitrofurantoin 100mg BID (started 02/18-), will suggest continuing antibiotics for 5-7 days Repeat urine culture collected on 02/20 to r/o ESBL in urine (4) Overactive bladder ICD Codes: N32.81 - Overactive bladder Plan: Continue home oxybutynin 5mg PO qid (5) Sacral decubitus ulcer ICD Codes: L89.159 - Pressure ulcer of sacral region, unspecified stage Plan: 4cm x 4cm ulcer at top of gluteal cleft with skin breakdown; bone not visible Stage I -Wound care consulted Continue to encourage patient to reposition herself for comfort and off loading. Recommend to apply Calazime to inner buttocks for moisture with patient use of pads. (6) Memory impairment ICD Codes: R41.3 - Other amnesia Status: Chronic Plan: Continue home Donepezil 10mg PO qhs (7) Polyneuropathy Status: Chronic Plan: Pt describes numbness and tingling in bilateral toes. There is no palpable pulse in bilateral ankles/feet; pt likely has moderate-severe PVD -Continue gabapentin 300mg PO qhs -Venous doppler US negative for DVTs (8) Venous stasis of lower extremity ICD Codes: I87.8 - Venous stasis of lower extremity Status: Acute Plan: Several scabbed lesions on each LE below knee with RLE worse than left. No pulses palpated at bilateral ankles. (9) Chronic back pain ICD Codes: M54.9 - Dorsalgia, unspecified; G89.29 - Other chronic pain Status: Chronic Plan: Continue home Hydrocodone (10) Dental caries ICD Codes: K02.9 - Dental caries, unspecified Plan: Continue Amoxicillin 500mg PO daily for dental ppx (11) FEN/GI/PPx Plan: Fluids: Heart healthy diet Electrolytes: wnl, will follow with daily BMP and replete as necessary GI: Protonix 20mg PO daily DVT PPx: eliquis, SCDs Zofran 4mg PO q6h nausea (12) L Atrial Ablation 10/23/09 Status: Resolved Permanent Comment: Done by Dr Whitlock at time of Valve Job. Last Edited By: Jinny Connell on Oct 27, 2009 13:57 (13) Pacemaker; Green Filter in IVC; Gastric Bypass 2000 Status: Resolved (Belgica Norman MD R1) Problem Qualifiers (1) Atrial fibrillation: Qualified Codes: I48.1 - Persistent atrial fibrillation (2) Sacral decubitus ulcer: Qualified Codes: L89.150 - Pressure ulcer of sacral region, unstageable (3) Chronic back pain: Belgica Norman MD R1 Feb 21, 2018 09:56 Kennedy Pop MD Feb 22, 2018 07:22
[2018-02-21] MEDS: GABAPENTIN 300 MG CAP PO SCH (21:24)
[2018-02-21] MEDS: DONEPEZIL HCL 5 MG TAB PO SCH (21:25)
[2018-02-22] VITALS (24 sets, daily range): BP systolic 92–134; BP diastolic 64–90; PULSE 87–122; RESP 16–18; TEMP 97.6–98.5; O2SAT 0–98
[2018-02-22] MEDS: ACETAMINOPHEN/HYDROcodone 325 MG/10 MG TAB PO SCH ×4 (05:34→22:46)
[2018-02-22] MEDS: DILTIAZEM HCL 90 MG TAB PO SCH ×4 (05:34→22:46)
[2018-02-22 06:22] LABS: HEMATOCRIT 36.3 % (35.0-46.0); HEMOGLOBIN 12.2 GM/DL (11.6-15.3); MEAN CORPUSCULAR HEMOGLOBIN 33.2 PG (27.0-34.0); MEAN CORPUSCULAR HGB CONC 33.5 % (32.0-36.0); MEAN PLATELET VOLUME 7.8 FL (7.0-11.0); PLATELET COUNT 184 TH/MM3 (150-450); RED BLOOD COUNT 3.67 MIL/MM3 (4.00-5.30); RED CELL DISTRIBUTION WIDTH 14.5 % (11.6-17.2); WHITE BLOOD COUNT 2.9 TH/MM3 (4.0-11.0)
[2018-02-22 06:47] LABS: BICARBONATE 27.7 MEQ/L (21.0-32.0); CALCIUM 8.3 MG/DL (8.5-10.1); CREATININE 0.51 MG/DL (0.50-1.00)
[2018-02-22] MEDS: OXYBUTYNIN CHLORIDE 5 MG TAB PO SCH ×4 (08:45→20:05)
[2018-02-22] MEDS: NITROFURANTOIN MONOHYD MACROCR 100 MG CAP PO SCH ×2 (08:45→17:46)
[2018-02-22] MEDS: AMOXICILLIN (TRIHYDRATE) 500 MG CAP PO SCH (08:45)
[2018-02-22] MEDS: APIXABAN 5 MG TABLET PO SCH ×2 (08:45→20:05)
[2018-02-22] MEDS: DOCUSATE SODIUM 50 MG/SENNA 8.6 MG TAB PO SCH ×2 (08:46→20:04)
[2018-02-22] MEDS: SODIUM CHLORIDE 0.9% FLUSH 10 ML FLUSH IV FLUSH SCH ×2 (08:46→20:05)
[2018-02-22] MEDS: PANTOPRAZOLE SOD 20 MG DELAYED RELEASE TAB PO SCH (08:46)
--- NOTE | 2018-02-22 09:46 | HHI.FPPN ---
Subjective Remarks No acute events overnight. Patient resting comfortably in bed. Patient denies chest pain, shortness of breath, abdominal pain, nausea vomiting , and diarrhea. Patient will be made n.p.o. after midnight for ablation tomorrow (Belgica Norman MD R1) Objective Vitals Vital Signs Date Time Temp Pulse Resp B/P (MAP) Pulse Ox O2 Delivery O2 Flow Rate FiO2 02/22/18 07:00 98.5 113 16 92/64 (73) 94 02/22/18 07:00 114 02/22/18 06:00 113 02/22/18 05:00 110 02/22/18 04:05 97.6 112 16 99/65 (76) 94 02/22/18 04:00 114 02/22/18 03:00 113 02/22/18 02:00 115 02/22/18 01:03 16 02/22/18 01:00 90 02/22/18 00:00 87 02/21/18 23:45 97.9 95 18 98/71 (80) 95 02/21/18 23:00 90 02/21/18 22:00 114 02/21/18 21:00 114 02/21/18 20:00 114 02/21/18 19:49 98.0 116 18 105/70 (82) 96 02/21/18 19:00 119 02/21/18 18:00 88 02/21/18 17:00 88 02/21/18 16:39 97.6 83 16 89/56 (67) 98 02/21/18 16:00 96 02/21/18 15:00 81 02/21/18 14:00 80 02/21/18 13:00 84 02/21/18 12:00 114 02/21/18 11:18 111 02/21/18 11:18 97.5 115 18 87/55 (66) 93 02/21/18 10:00 110 I/O 02/21/18 02/21/18 02/21/18 02/22/18 02/22/18 02/22/18 07:00 15:00 23:00 07:00 15:00 23:00 Intake Total 600 ml 360 ml 960 ml Balance 600 ml 360 ml 960 ml Intake Oral 600 ml 360 ml 960 ml # Voids 4 3 4 (Belgica Norman MD R1) Result Diagram: 02/22/1861402/22/18614 Objective Remarks GENERAL: This is a well-nourished, well-developed elderly female in no apparent distress. CARDIOVASCULAR: Pacemaker in place along the left sternal border, tachycardia in 95-113s with irregular rhythm without murmurs, gallops, or rubs. RESPIRATORY: Clear to auscultation. Breath sounds equal bilaterally. No wheezes , rales, or rhonchi. GASTROINTESTINAL: Abdomen soft, non-tender, nondistended. No hepato-splenomegaly , or palpable masses. No guarding. MUSCULOSKELETAL: Extremities without clubbing or cyanosis. Trace edema in bilateral LEs below knees with venous stasis changes as noted above. No joint tenderness, effusion, or edema noted. No calf tenderness. Bilateral LE pulses non-palpable. There is a 4cm x 4cm sacral decubitus ulcer- stage I with skin breakdown in the centerline at the top of the gluteal cleft. NEUROLOGICAL: Awake and alert. Oriented x 3. (Belgica Norman MD R1) A/P Assessment and Plan 72 YO female with uncontrolled Afib RVR. Cardiology (Dr Oglesby) consulted. On amiodarone gtt. Anticoagulation with Eliquis. Discharge Planning Pending cardiology recommendations and clearance anticipate discharge in 1-2 days (Belgica Norman MD R1) Attending Attestation See the residents Dr He documentation for details. I saw and evaluated the patient regarding the dyer portions of this evaluation and agree with the residents findings and plans as written. (Kennedy Pop MD) Problem List: (1) Atrial fibrillation Status: Chronic Plan: 72YO female with recent onset Afib presents from clinic with Afib RVR with rate in 130s; pt is asymptomatic--no CP, palpitations, SOB, dizziness, syncope; pt home dose Cardizem 240mg PO daily and indicates she is taking regularly. Impression: -Patient had 2 episodes of V. tach on cardiac strips in the ED -CXR negative -INR 1.0/PT 10.2/PTT 26.1 wnl -CBC with WBC 3.6 (56.8% neutrophils/12.2% monocytes) -Troponin x3 <0.02 -BNP 145 -Lopressor 5mg IV push once in ED -Amiodarone gtt started in ED -Dilt 30mg PO once in ED PLAN -Cardiology consulted, appreciate recommendations -Rate not controlled, BP too low to increase meds. -Patient be made NPO after midnight for ablation tomorrow -Amiodarone gtt continued in [facility] (due to no IV Dilt)- held for now due to low blood pressures -Continue Dilt 90mg q6h -Continue Eliquis 5mg BID for anticoagulation (2) V-tach ICD Codes: I47.2 - Ventricular tachycardia Status: Acute Plan: Patient had 2 episodes of V. tach on cardiac strips in the ED Plan as above (3) UTI (urinary tract infection) ICD Codes: N39.0 - Urinary tract infection, site not specified Plan: Urine culture positive for E.coli, sensitive to Macrobid continue Nitrofurantoin 100mg BID (started 02/18-), will suggest continuing antibiotics for 5-7 days Repeat urine culture collected on 02/20 to r/o ESBL in urine, mixed gram positives- most likely contaminants (4) Overactive bladder ICD Codes: N32.81 - Overactive bladder Plan: Continue home oxybutynin 5mg PO qid (5) Sacral decubitus ulcer ICD Codes: L89.159 - Pressure ulcer of sacral region, unspecified stage Plan: 4cm x 4cm ulcer at top of gluteal cleft with skin breakdown; bone not visible Stage I -Wound care consulted Continue to encourage patient to reposition herself for comfort and off loading. Recommend to apply Calazime to inner buttocks for moisture with patient use of pads. (6) Memory impairment ICD Codes: R41.3 - Other amnesia Status: Chronic Plan: Continue home Donepezil 10mg PO qhs (7) Polyneuropathy Status: Chronic Plan: Pt describes numbness and tingling in bilateral toes. There is no palpable pulse in bilateral ankles/feet; pt likely has moderate-severe PVD -Continue gabapentin 300mg PO qhs -Venous doppler US negative for DVTs (8) Venous stasis of lower extremity ICD Codes: I87.8 - Venous stasis of lower extremity Status: Acute Plan: Several scabbed lesions on each LE below knee with RLE worse than left. No pulses palpated at bilateral ankles. (9) Chronic back pain ICD Codes: M54.9 - Dorsalgia, unspecified; G89.29 - Other chronic pain Status: Chronic Plan: Continue home Hydrocodone (10) Dental caries ICD Codes: K02.9 - Dental caries, unspecified Plan: Continue Amoxicillin 500mg PO daily for dental ppx (11) FEN/GI/PPx Plan: Fluids: Heart healthy diet, NPO after midnight with PO meds Electrolytes: wnl, will follow with daily BMP and replete as necessary GI: Protonix 20mg PO daily DVT PPx: eliquis, SCDs Zofran 4mg PO q6h nausea (12) L Atrial Ablation 10/23/09 Status: Resolved Permanent Comment: Done by Dr Whitlock at time of Valve Job. Last Edited By: Jinny Connell on Oct 27, 2009 13:57 (13) Pacemaker; Green Filter in IVC; Gastric Bypass 2000 Status: Resolved (Belgica Norman MD R1) Problem Qualifiers (1) Atrial fibrillation: Qualified Codes: I48.1 - Persistent atrial fibrillation (2) Sacral decubitus ulcer: Qualified Codes: L89.150 - Pressure ulcer of sacral region, unstageable (3) Chronic back pain: Belgica Norman MD R1 Feb 22, 2018 09:46 Kennedy Pop MD Feb 23, 2018 07:20
--- NOTE | 2018-02-22 18:13 | HHI.PR ---
Subjective Remarks Feeling ok Objective Vital Signs Date Time Temp Pulse Resp B/P (MAP) Pulse Ox O2 Delivery O2 Flow Rate FiO2 02/22/18 17:00 118 02/22/18 16:00 119 02/22/18 15:00 98.0 120 18 134/90 (105) 0 02/22/18 15:00 120 02/22/18 13:30 18 02/22/18 13:00 120 02/22/18 12:00 117 02/22/18 11:00 119 02/22/18 11:00 98.3 116 18 Automatic Cuff 98 02/22/18 10:00 101 02/22/18 09:00 114 02/22/18 08:00 112 02/22/18 07:00 98.5 113 16 92/64 (73) 94 02/22/18 07:00 114 02/22/18 06:00 113 02/22/18 05:00 110 02/22/18 04:05 97.6 112 16 99/65 (76) 94 02/22/18 04:00 114 02/22/18 03:00 113 02/22/18 02:00 115 02/22/18 01:00 90 02/22/18 00:00 87 02/21/18 23:45 97.9 95 18 98/71 (80) 95 02/21/18 23:00 90 02/21/18 22:00 114 02/21/18 21:00 114 02/21/18 20:00 114 02/21/18 19:49 98.0 116 18 105/70 (82) 96 02/21/18 19:00 119 I/O 02/21/18 02/21/18 02/21/18 02/22/18 02/22/18 02/22/18 07:00 15:00 23:00 07:00 15:00 23:00 Intake Total 600 ml 360 ml 960 ml Balance 600 ml 360 ml 960 ml Intake Oral 600 ml 360 ml 960 ml # Voids 4 3 4 Result Diagram: 02/22/18 0615 02/22/18 0615 Imaging Alert, fully oriented Lungs: ventilated Heart: S1, S2 tachycardia, irregular Abdomen: soft, no m,ass Ext: no edema Last Impressions Lower Extremity Ultrasound 02/17/18 0000 Signed Impressions: CONCLUSION: 1. Negative exam with no evidence of deep venous thrombosis. Chest X-Ray 02/16/18 9339 Signed Impressions: CONCLUSION: No acute cardiopulmonary disease Current Medications Medications (Trade) Dose Ordered Sig/Tony Route Start Time Stop Time Status Last Admin (NS Flush) 2 ml UNSCH PRN IV FLUSH 02/16/18 21:15 (NS Flush) 2 ml BID IV FLUSH 02/17/18 09:00 02/22/18 08:46 (Tylenol) 650 mg Q4H PRN PO 02/16/18 21:15 (Zofran Odt) 4 mg Q6H PRN PO 02/16/18 21:15 (Narcan Inj) 0.4 mg UNSCH PRN IV PUSH 02/16/18 21:15 ([place]ace) 1 tab BID PO 02/17/18 09:00 02/19/18 09:24 (Milk Of [place] Liq) 30 ml Q12H PRN PO 02/16/18 21:15 (Aricept) 10 mg HS PO 02/17/18 21:00 02/21/18 21:25 (Neurontin) 300 mg HS PO 02/17/18 21:00 02/21/18 21:24 (Ditropan) 5 mg QID PO 02/17/18 09:00 02/22/18 17:46 (Protonix) 20 mg DAILY PO 02/17/18 09:00 02/22/18 08:46 Amiodarone HCl 450 mg/Sodium Chloride 250 ml @ 33.33 mls/ hr Q7H31M PRN IV 02/17/18 06:15 Future Hold 02/20/18 05:42 (Cardizem) 90 mg Q6HR PO 02/17/18 12:00 02/22/18 17:46 (Eliquis) 5 mg BID PO 02/17/18 09:00 02/22/18 08:45 ([place] 10-325 Mg) 1 tab Q6HR PO 02/17/18 12:00 02/22/18 17:46 (Trimox) 500 mg DAILY PO 02/17/18 16:00 02/22/18 08:45 (Macrobid) 100 mg BIDPC PO 02/18/18 12:00 02/24/18 08:00 02/22/18 17:46 Assessment and Plan Problem List: (1) Atrial fibrillation Status: Chronic Plan: In atrial fibrillation.\ HR high. Cannot be controlled EPS and AV node ablation scheduled The risks, the nature and benefits of the procedure discussed patient understand and agree to proceed Procedure rescheduled for tomorrow AM (2) CHF (congestive heart failure) ICD Codes: I50.9 - Heart failure, unspecified Status: Acute Plan: SOB worsen with afib Problem Qualifiers (1) Atrial fibrillation: Qualified Codes: I48.1 - Persistent atrial fibrillation Flo Hunt MD Feb 22, 2018 18:13
[2018-02-22] MEDS: DONEPEZIL HCL 5 MG TAB PO SCH (20:04)
[2018-02-22] MEDS: GABAPENTIN 300 MG CAP PO SCH (20:05)
[2018-02-23] VITALS (25 sets, daily range): BP systolic 95–127; BP diastolic 56–90; PULSE 66–125; RESP 16–18; TEMP 97.3–98.4; O2SAT 94–100
[2018-02-23] MEDS: DILTIAZEM HCL 90 MG TAB PO SCH (04:37)
[2018-02-23] MEDS: ACETAMINOPHEN/HYDROcodone 325 MG/10 MG TAB PO SCH ×3 (04:37→19:35)
[2018-02-23] MEDS ORDERED: ISOPROTERENOL INJ PREMIX 50 ML IV ONE (07:26)
--- NOTE | 2018-02-23 08:07 | CATHPROC ---
Patient Name: LA BOWERS Study #: [id number] Initial MD: Flo Hunt Date of : 1945 Study Date: 02/23/2018 Cardiac Catheterization Report 02/23/2018 8:07:02 AM Financial #: [id number] 1 of 8 Patient Name: LA BOWERS Study #: [id number] Initial MD: Flo Hunt Date of : 1945 Study Date: 02/23/2018 Entire Case Report Patient Information Patient Name LA BOWERS Date of 1945 Age 72 years Financial # [id number] Gender F AlternateID Lab Number 2 Room Number 245 Height (in) 67.0 Height (cm) 170.1 BSA 1.80 Weight (lbs) 152.5 Weight (kg) 69.3 Patient Address/Phone Number Home Address [facility] Home Phone Number [phone] [facility] [address] Study Information Study Number Admission Scheduled Start Study Start [id number] Feb 16 2018 7:56PM 02/23/2018 Feb 23 2018 6:49AM [place] [facility] Electrophysiology Study Admit Source Facility Department Other [facility] - Senior Linux Administrator Physician and Clinical Staff Initial Flo Cantu Recoil Spring Winder Julia Frazier RCIS Other Anesthesia, TRUCK LOADER OVERHEAD CRANE Recorder Milly Coley,KATI Scrub Robert Daniels,RT(R) Procedures Performed Procedure Location (Site) Ablation Procedure RF Ablation AV NODE 02/23/2018 8:07:02 AM Financial #: [id number] 2 of 8 Patient Name: LA BOWERS Study #: [id number] Initial MD: Flo Hunt Date of : 1945 Study Date: 02/23/2018 Equipment Time Elevator Adjuster Description Size Mfg Part Number Used/Scraped BIOSENSE TERESA CATHETER, CELSIUS DS, 8MM, F [id number] 07:36 FR 7 Used INC. TYPE QUAD *[id number] 07:17 [employer] BLANKET,WARM AIR CCL * Used *[id number] 07:17 [employer] PACK, CCL CUSTOM * Used *[id number] 07:17 MEDLINE PACER MAYER, LIMB * 2530 *[id number] Used [id number] 07:18 [employer] MEDICAL CATHETER, JSN, QUAD FR 5 Used *[id number] 07:18 [employer] MEDICAL CATHETER, JSN, QUAD FR 5 Used *[id number] 07:17 [employer] MEDICAL ELECTRODE KIT, KARIME X SURFACE * Used *[id number] 07:18 [employer] MED[employer] SHEATH, EPS, FR5 FAST CATH FR 5 Used *[id number] 07:18 [employer] MEDICAL SHEATH, EPS, FR6 FAST CATH FR 6 Used *[id number] 532102 07:18 [employer] MEDICAL SHEATH, EPS, FR8 FAST CATH FR 8 Used *[id number] [facility] PAD, ELECTROSURGICAL 07:17 * [id number] *[id number] Used SURGICAL GROUNDING (BLUE) Insurance Information Insurance Payor Medicare, Private Health Insurance Third Republican Third Republican Number [employer] CHOICE PPO HUMCRPPO History: Risk Factors Family History of Hypertension Dyslipidemia Previous NH Previous Heart Failure Premature CAD Yes Yes No No Yes Prior Valve Prior PCI Prior CABG Surgery No No No Cerebrovascular Peripheral Artery Chronic Lung On Dialysis Diabetes Disease Disease Disease No No Yes No No Labs Hgb (g/dl) Hct (%) WBC (l/cumm) Platelets (thousands) 11.60-17.00 35.00-51.00 4.00-11.00 150.00-450.00 12.2 36.3 2.9 184 Glucose (mg/dl) BUN (mg/dl) Creatinine (mg/dl) BUN:Creatinine (1:x) 74.00-106.00 7.00-18.00 0.50-1.30 10.00-20.00 80 6 0.5 12 02/23/2018 8:07:02 AM Financial #: [id number] 3 of 8 Patient Name: LA BOWERS Study #: [id number] Initial MD: Flo Hunt Date of : 1945 Study Date: 8 Na (meq/l) 136.00-145.00 144 INR (PTT:PT) 0.90-1.10 1.1 Medication Medication Total Dose (Bolus/Oral) Medication Total Dosage/Unit 1% XYLOCAINE 20 mL Medications (Bolus/Oral) Medication Time Given Dosage/Unit Administered By Reason 1% XYLOCAINE 02/23/2018 7:34:19 AM 20 mL Flo Hunt 20 mL 1% XYLOCAINE given in lab by Flo Hunt in Right Groin via Subcutaneous. Medication (Drip) Medication Time Given Dosage/Unit Concentration/Unit Diluent (ml) Solution ISUPREL 02/23/2018 7:49:05 AM 4 mcg/min 1 mg 250 NaCl .9 4 mcg/min ISUPREL given in lab by Flo Hunt via Peripheral IV. Pump/Drip Flow = 60 ml/hr using Na Cl .9 with a concentration of 1 mg in 250 ml. ISUPREL DRIP STOPPED 02/23/2018 8:00:22 AM 0 units/hr 0 0 units/hr ISUPREL DRIP STOPPED given in lab by Flo Hunt. Pump/Drip Flow = 0 ml/hr using [Soluti on Name]. 02/23/2018 8:07:02 AM Financial #: [id number] 4 of 8 Patient Name: LA BOWERS Study #: [id number] Initial MD: Flo Hunt Date of : 1945 Study Date: 02/23/2018 Initial Case Assessment Cardiovascular HR Rhythm NIBP Chest Pain 80 AFIB 121/78 0 Edema Present Skin color Skin None Normal Warm Circulatory - Right Pulses Dorsalis Pedis 1 Scale (0,1,2,3,4,d) Circulatory - Left Pulses Dorsalis Pedis 1 Scale (0,1,2,3,4,d) Neurological State Oriented to time-place- Alert Moves all extremities person Respiration - General Respiration Rate SpO2 (%) (B/min) 16 98 02/23/2018 8:07:02 AM Financial #: [id number] 5 of 8 Patient Name: LA BOWERS Study #: [id number] Initial MD: Flo Hunt Date of : 1945 Study Date: 02/23/2018 Final Case Assessment Cardiovascular HR Rhythm NIBP Chest Pain 80 PACED 90/49 0 Edema Present Skin color Skin None Normal Warm Dry Circulatory - Right Pulses Dorsalis Pedis 1 Scale (0,1,2,3,4,d) Circulatory - Left Pulses Dorsalis Pedis 1 Scale (0,1,2,3,4,d) Neurological State Oriented to time-place- Alert Moves all extremities person Respiration - General Respiration Rate SpO2 (%) O2 (lpm) (B/min) 18 97 3 Chronological Log Time Study Chronological Log 7:07:00 Patient arrived via Bed. 7:07:10 Patient Name, D.O.B, / Armband Verified By R.N. 7:07:55 Anesthesia at bedside. Assumes care of patient. SEE RECORDSS FOR ALL MEDS AND VITALS DURING CASE 7:10:21 Patient Warmer Placed on the Table. 7:10:55 Bilateral groins prepped with 2% chlorhexidine, and draped after a 3 minute waiting time. 7:11:00 Disposable Defibrillator Pads Placed On Patient. 7:11:00 Maya Prominences Protected 7:11:10 IV Warmer Connected To Patient. 7:12:00 A # 20 IV was noted in the Antecubital (left). Grade = 0 7:12:00 History and physical on the chart or being dictated. 7:12:15 Table restraints applied according to hospital policy 02/23/2018 8:07:02 AM Financial #: [id number] 6 of 8 Patient Name: LA BOWERS Study #: [id number] Initial MD: Flo Hunt Date of : 1945 Study Date: 02/23/2018 Assessment: Initial Case, HR=80 BPM, Rhythm=AFIB, SYIO=799/78 mmhg, Chest Pain=0, Edema=None, Color=Normal, Skin = Warm Right Pulses: Drew Ped=1 7:13:00 Left Pulses: Drew Ped=1 Neurological: State=Alert, Ox3, GOLD Respiration: Resp=16 B/min, SpO2=98 % 7:20:45 Patient has been NPO for More than 6Hrs. 7:20:54 Skin Breakdown- SCATTERED SCABS ON LOWER LEGS OPEN TO AIR 7:27:53 PM SET AT VVI40 PER NEO REICH 7:28:00 paged 7:29:21 MD arrived. Time Out. Correct patient, procedure, procedure equipment, site and side verified with physicia n present. Time 7:33:10 concurred by MD, individual staff and TRUCK LOADER OVERHEAD CRANE. Time Out #2 - Consents verified, patient in correct position, all results are labled and displa yed, safety precautions 7:33:50 taken, antibiotics administered. Time out concurred by MD, individual staff and TRUCK LOADER OVERHEAD CRANE in procedu re 7:33:59 Case Start 7:34:19 20 mL 1% XYLOCAINE given in lab by Flo Hunt in Right Groin via Subcutaneous. 7:34:37 Vascular access was obtained in the Fem Vein (right). 7:34:41 Vascular access was obtained in the Fem Vein (right). 7:34:41 Vascular access was obtained in the Fem Vein (right). 7:34:48 A SHEATH, EPS, FR5 FAST CATH FR 5 was advanced into the Fem Vein (right) using the Modified Seldinger technique. 7:34:58 A SHEATH, EPS, FR6 FAST CATH FR 6 was advanced into the Fem Vein (right) using the Modified Seldinger technique. 7:35:00 A SHEATH, EPS, FR8 FAST CATH FR 8 was advanced into the Fem Vein (right) using the Modified Seldinger technique. A CATHETER, JSN, QUAD FR 5 was advanced vis Fem Vein (right) and placed in the CS. Placement wa s visually 7:37:31 confirmed under fluoroscopy. A CATHETER, JSN, QUAD FR 5 was advanced vis Fem Vein (right) and placed in the HIS. Placement w as visually 7:37:39 confirmed under fluoroscopy. A CATHETER, CELSIUS DS, 8MM, F TYPE QUAD FR 7 was advanced vis Fem Vein (right) and placed in t he AV NODE. 7:44:51 Placement was visually confirmed under fluoroscopy. 7:45:45 RF Ablation of the AV NODE with a CATHETER, CELSIUS DS, 8MM, F TYPE QUAD FR 7. 7:46:07 ABLATION IN PROGRESS 7:48:48 ABLATION COMPLETE NODE ABLATED 4 mcg/min ISUPREL given in lab by Flo Hunt via Peripheral IV. Pump/Drip Flow = 60 ml/hr us ing NaCl .9 with a 7:49:05 concentration of 1 mg in 250 ml. 7:59:43 [id number] PACEMAKER SET PER NEO RIVAS 8:00:22 0 units/hr ISUPREL DRIP STOPPED given in lab by Flo Hunt. Pump/Drip Flow = 0 ml/hr noelle hill [Solution Name]. 8:00:46 Catheter(s) removed without difficulty 8:03:16 Sheath removed; pressure applied to access site. BY ROBERT Talavera 8:03:22 Case End (Physician broke scrub) 8:03:23 Sterile dressing applied to site 8:03:23 No case complications noted. 8:03:24 Cine recording checked. 8:03:27 Bedside Report will be given. 8:03:29 CIC called. Spoke to JULIA 02/23/2018 8:07:02 AM Financial #: [id number] Patient Name: LA BOWERS Study #: [id number] Initial MD: Flo Hunt Date of : 1945 Study Date: 02/23/2018 8:03:42 Defibrillator and ground pads removed. Skin intact. Assessment: Final Case, HR=80 BPM, Rhythm=PACED, NIBP=90/49 mmhg, Chest Pain=0, Edema=None, Color=Normal, Skin = Warm, Dry Right Pulses: Drew Ped=1 8:04:52 Left Pulses: Drew Ped=1 Neurological: State=Alert, Ox3, GOLD Respiration: Resp=18 B/min, SpO2=97 %, O2=3 lpm 8:06:33 Ablation procedure performed: AVN. 8:06:42 EP Procedure was performed. AVN ABLATION 8:14:37 Patient moved to [facility] End Study - Contrast Media Used In Study Contrast Total Opened (mL) Total Used (mL) Total Wasted (mL) Unspecified 0 0 0 End Study - Maximum Contrast Load Max Contrast Load (mL) 693.2 End Study - Radiation Exposure Fluoro Time (minutes) 6.8 End Study - Patient Disposition Complications Transferred To Interventional Outcome No Telemetry Bed successful 02/23/2018 8:07:02 AM Financial #: [id number]
[2018-02-23] MEDS ORDERED: ATROPINE SULFATE 1 MG/ML VIAL IV PUSH PRN (08:45)
[2018-02-23] MEDS ORDERED: SODIUM CHLOR 0.9% 250 ML INJ 250 ML IV PRN (08:45)
[2018-02-23] MEDS ORDERED: BACITRACIN OINT 0.9 GM PKT TOP ONE (08:45)
[2018-02-23] MEDS ORDERED: LIDOCAINE HCL 1% 50 ML VIAL INFIL PRN (08:45)
[2018-02-23] MEDS ORDERED: ONDANSETRON ODT 4 MG TAB PO PRN (08:45)
[2018-02-23] MEDS ORDERED: LORazepam 2 MG/ML VIAL IV PUSH PRN (08:45)
[2018-02-23] MEDS: DOCUSATE SODIUM 50 MG/SENNA 8.6 MG TAB PO SCH ×2 (09:00→22:09)
--- NOTE | 2018-02-23 09:05 | MA ---
cc: Flo Hunt MD,Efra Pop,Kennedy Torres,Nikhil Shahid MD DATE: 02/23/2018 PROCEDURE PERFORMED: Electrophysiology study, CS cannulation, AV node modification and dual chamber permanent pacemaker reprogramming, repeat electrophysiology study on Isuprel infusion. INDICATIONS: Mrs. Chow is a 72-year-old female with a history of mitral valve repair, atrial fibrillation, previous maze procedure, very symptomatic, heart rate very difficult to control, not a good candidate for atrial fibrillation ablation referred for a AV node modification. The risks, the nature and the benefits of the procedure are clearly stated to her. Risks include pneumothorax, cardiac perforation, stroke, infection, and even . She understood and agreed to proceed. PROCEDURE: After written informed consent was obtained, the patient was brought to the EP Lab where she was prepped and draped in the usual sterile fashion. Conscious sedation was initiated and maintained throughout the procedure by the anesthesiologist. Once sedation verified, the right inguinal area was anesthetized with 2% Xylocaine. Using modified Seldinger technique, the right femoral vein was cannulated on 3 occasions and 3 guidewires were advanced over the wire, a 6, 5 and an 8-Ugandan Hemaquet were advanced. Over the wires, then through the 5 and 6-Ugandan Hemaquet two 5 Ugandan Allyssa curved quadripolar electrophysiology catheters were placed upon the His, as well as coronary sinus. The permanent pacemaker was reprogrammed to VVI 40. Through the 8-Ugandan Hemaquet, a Cordis Stover F-curve 8 mm mapping and radiofrequency ablation catheter was advanced. Using [employer] endocardial solution mapping system, a 3-dimensional configuration of the right atrium was obtained. Then, the catheter was observed at the tricuspid valve annulus. When it is observed, radiofrequency energy was delivered. The patient went into a junctional rhythm and then in a VVI of 40 pacing. Further burn was delivered in the area. Then, Isuprel infusion was initiated. No conduction resumed. Post-isuprel, no conduction resumed. At that point, the procedure was complete. The permanent pacemaker was reprogrammed to VVIR 80 upper rate limit 100 beats per minute that stayed for and then decrease to VVIR 70. No incident to report. Patient tolerated the procedure. Blood loss minimal. 1. At baseline, the patient is in atrial fibrillation. Postprocedure, she was V-pacing. 2. Basic interval base: Base cycle length was around 510 milliseconds. 3. Tachyarrhythmia: AV node was mapped and ablated. Ablation was successful. CONCLUSION: Successful electrophysiology study, 3-D mapping, radiofrequency ablation of AV node. Successful permanent pacemaker reprogramming also. COMMENT AND RECOMMENDATION: The patient is going to be transferred to the recovery room. She will be observed and can be discharged whenever it is okay with the managing team. MD ALCIDES Matos/LOY , 08:40 AM , 09:04 AM
[2018-02-23] MEDS: AMOXICILLIN (TRIHYDRATE) 500 MG CAP PO SCH (09:34)
[2018-02-23] MEDS: APIXABAN 5 MG TABLET PO SCH ×2 (09:34→22:08)
[2018-02-23] MEDS: OXYBUTYNIN CHLORIDE 5 MG TAB PO SCH ×4 (09:34→22:08)
[2018-02-23] MEDS: NITROFURANTOIN MONOHYD MACROCR 100 MG CAP PO SCH ×2 (09:34→18:40)
[2018-02-23] MEDS: SODIUM CHLORIDE 0.9% FLUSH 10 ML FLUSH IV FLUSH SCH ×2 (09:35→22:10)
[2018-02-23] MEDS: PANTOPRAZOLE SOD 20 MG DELAYED RELEASE TAB PO SCH (09:35)
--- NOTE | 2018-02-23 10:44 | HHI.FPPN ---
Subjective Remarks Patient s/p ablation of AV node Resting comfortably in bed HR 80 No complaints. States that she was able to tolerate diet well Denies CP, SOB, abdominal pain, and N/V. (Belgica Norman MD R1) Objective Vitals Vital Signs Date Time Temp Pulse Resp B/P (MAP) Pulse Ox O2 Delivery O2 Flow Rate FiO2 02/23/18 08:30 97.3 80 16 108/66 (80) 100 02/23/18 08:30 80 02/23/18 07:00 95 02/23/18 06:00 92 02/23/18 05:00 99 02/23/18 04:00 97.8 80 18 100/63 (75) 94 02/23/18 04:00 66 02/23/18 03:00 116 02/23/18 02:00 116 02/23/18 01:00 114 02/23/18 00:00 97.6 125 18 127/90 (102) 97 02/23/18 00:00 117 02/22/18 23:00 118 02/22/18 22:00 116 02/22/18 21:00 116 02/22/18 20:00 97.8 119 18 119/83 (95) 96 02/22/18 20:00 117 02/22/18 18:00 122 02/22/18 17:00 118 02/22/18 16:00 119 02/22/18 15:00 98.0 120 18 134/90 (105) 0 02/22/18 15:00 120 02/22/18 14:00 118 02/22/18 13:30 18 02/22/18 13:00 120 02/22/18 12:00 117 02/22/18 11:00 119 02/22/18 11:00 98.3 116 18 Automatic Cuff 98 I/O 02/22/18 02/22/18 02/22/18 02/23/18 02/23/18 02/23/18 07:00 15:00 23:00 07:00 15:00 23:00 Intake Total 960 ml 960 ml 240 ml Output Total 350 ml 700 ml Balance 960 ml 610 ml -460 ml Intake Oral 960 ml 960 ml 240 ml Output Urine Total 350 ml 700 ml # Voids 4 # Bowel Movements 1 (Belgica Norman MD R1) Result Diagram: 02/22/1861402/22/18614 Objective Remarks GENERAL: This is a well-nourished, well-developed elderly female in no apparent distress. CARDIOVASCULAR: Pacemaker in place along the left sternal border, irregular rhythm without murmurs, gallops, or rubs. RESPIRATORY: Clear to auscultation. Breath sounds equal bilaterally. No wheezes , rales, or rhonchi. GASTROINTESTINAL: Abdomen soft, non-tender, nondistended. No hepato-splenomegaly , or palpable masses. No guarding. MUSCULOSKELETAL: Extremities without clubbing or cyanosis. Trace edema in bilateral LEs below knees with venous stasis changes as noted above. No joint tenderness, effusion, or edema noted. No calf tenderness. Bilateral LE pulses non-palpable. There is a 4cm x 4cm sacral decubitus ulcer- stage I with skin breakdown in the centerline at the top of the gluteal cleft. NEUROLOGICAL: Awake and alert. Oriented x 3. (Belgica Norman MD R1) A/P Assessment and Plan 72 YO female with uncontrolled Afib RVR. S/p successful elctrophysiology study, 3D-mapping, radiofrequency ablation of AV node. Anticoagulation with Eliquis. Discharge Planning Pending cardiology clearance anticipate discharge later this afternoon or tomorrow (Belgica Norman MD R1) Attending Attestation See the residents Dr Norman documentation for details. I saw and evaluated the patient regarding the dyer portions of this evaluation and agree with the residents findings and plans as written. (Kennedy Pop MD) Problem List: (1) Atrial fibrillation Status: Chronic Plan: 72YO female with recent onset Afib presents from clinic with Afib RVR with rate in 130s; pt is asymptomatic--no CP, palpitations, SOB, dizziness, syncope; pt home dose Cardizem 240mg PO daily and indicates she is taking regularly. -Cardiology consulted, appreciated recommendations s/p successful electrophysiology study, 3-D mapping, radiofrequency ablation of AV node. Successful permanent pacemaker reprogramming. -Discontinued Amiodarone gtt in [facility] (due to no IV Dilt) -Discontinue Dilt 90mg q6h -Continue Eliquis 5mg BID for anticoagulation Prior Labs: -Patient had 2 episodes of V. tach on cardiac strips in the ED -CXR negative -INR 1.0/PT 10.2/PTT 26.1 wnl -CBC with WBC 3.6 (56.8% neutrophils/12.2% monocytes) -Troponin x3 <0.02 -BNP 145 -Lopressor 5mg IV push once in ED -Amiodarone gtt started in ED -Dilt 30mg PO once in ED (2) V-tach ICD Codes: I47.2 - Ventricular tachycardia Status: Acute Plan: Patient had 2 episodes of V. tach on cardiac strips in the ED Plan as above (3) UTI (urinary tract infection) ICD Codes: N39.0 - Urinary tract infection, site not specified Plan: Urine culture positive for E.coli, sensitive to Macrobid continue Nitrofurantoin 100mg BID (02/18-02/24) Repeat urine culture collected on 02/20 to r/o ESBL in urine, mixed gram positives- most likely contaminants (4) Overactive bladder ICD Codes: N32.81 - Overactive bladder Plan: Continue home oxybutynin 5mg PO qid (5) Sacral decubitus ulcer ICD Codes: L89.159 - Pressure ulcer of sacral region, unspecified stage Plan: 4cm x 4cm ulcer at top of gluteal cleft with skin breakdown; bone not visible Stage I -Wound care consulted Continue to encourage patient to reposition herself for comfort and off loading. Recommend to apply Calazime to inner buttocks for moisture with patient use of pads. (6) Memory impairment ICD Codes: R41.3 - Other amnesia Status: Chronic Plan: Continue home Donepezil 10mg PO qhs (7) Polyneuropathy Status: Chronic Plan: Pt describes numbness and tingling in bilateral toes. There is no palpable pulse in bilateral ankles/feet; pt likely has moderate-severe PVD -Continue gabapentin 300mg PO qhs -Venous doppler US negative for DVTs (8) Venous stasis of lower extremity ICD Codes: I87.8 - Venous stasis of lower extremity Status: Acute Plan: Several scabbed lesions on each LE below knee with RLE worse than left. No pulses palpated at bilateral ankles. (9) Chronic back pain ICD Codes: M54.9 - Dorsalgia, unspecified; G89.29 - Other chronic pain Status: Chronic Plan: Continue home Hydrocodone (10) Dental caries ICD Codes: K02.9 - Dental caries, unspecified Plan: Continue Amoxicillin 500mg PO daily for dental ppx (11) FEN/GI/PPx Plan: Fluids: Heart healthy diet, NPO after midnight with PO meds Electrolytes: wnl, will follow with daily BMP and replete as necessary GI: Protonix 20mg PO daily DVT PPx: eliquis, SCDs Zofran 4mg PO q6h nausea (12) L Atrial Ablation 10/23/09 Status: Resolved Permanent Comment: Done by Dr Whitlock at time of Valve Job. Last Edited By: Jinny Connell on Oct 27, 2009 13:57 (13) Pacemaker; Green Filter in IVC; Gastric Bypass 2000 Status: Resolved (Belgica Norman MD R1) Problem Qualifiers (1) Atrial fibrillation: Qualified Codes: I48.1 - Persistent atrial fibrillation (2) Sacral decubitus ulcer: Qualified Codes: L89.150 - Pressure ulcer of sacral region, unstageable (3) Chronic back pain: Belgica Norman MD R1 Feb 23, 2018 10:44 Kennedy Pop MD Feb 24, 2018 13:50
[2018-02-23 10:45] LABS: HEMATOCRIT 37.3 % (35.0-46.0); HEMOGLOBIN 12.5 GM/DL (11.6-15.3); MEAN CELL VOLUME 98.5 FL (80.0-100.0); MEAN CORPUSCULAR HEMOGLOBIN 32.9 PG (27.0-34.0); MEAN CORPUSCULAR HGB CONC 33.5 % (32.0-36.0); MEAN PLATELET VOLUME 7.8 FL (7.0-11.0); PLATELET COUNT 196 TH/MM3 (150-450); RED BLOOD COUNT 3.79 MIL/MM3 (4.00-5.30); RED CELL DISTRIBUTION WIDTH 14.4 % (11.6-17.2); WHITE BLOOD COUNT 3.8 TH/MM3 (4.0-11.0)
[2018-02-23 11:03] LABS: BICARBONATE 24.9 MEQ/L (21.0-32.0); CREATININE 0.48 MG/DL (0.50-1.00)
[2018-02-23] MEDS ORDERED: ePHEDrine/NS 25 MG/5 ML SYRINGE IV ONE (12:00)
[2018-02-23] MEDS ORDERED: SODIUM CHLORID 0.9% 500 ML INJ 500 ML IV ONE (12:00)
[2018-02-23] MEDS ORDERED: PHENYLEPH/NS 1000 MCG/10 ML SYR IV ONE (12:00)
[2018-02-23] MEDS ORDERED: PROPOFOL 200 MG/20 ML AMP IV ONE (12:00)
--- NOTE | 2018-02-23 20:10 | EKG ---
Date Performed: 02/23/2018 Time Performed: 08:55:22 PTAGE: 72 years EKG: Ventricular pacing Pacemaker rhythm - no further analysis When compared to previous tracing , the rhythm is now paced. Abnormal ECG PREVIOUS TRACING : 02/17/2018 06.35 DOCTOR: Nikhil Torres Interpretating Date/Time 02/23/2018 20:09:31
[2018-02-23] MEDS: GABAPENTIN 300 MG CAP PO SCH (22:09)
[2018-02-23] MEDS: DONEPEZIL HCL 5 MG TAB PO SCH (22:09)
[2018-02-24] VITALS (14 sets, daily range): BP systolic 95–115; BP diastolic 64–79; PULSE 60–86; RESP 16–18; TEMP 93.4–98.3; O2SAT 95–98
[2018-02-24] MEDS: ACETAMINOPHEN/HYDROcodone 325 MG/10 MG TAB PO SCH ×3 (00:14→11:43)
[2018-02-24] MEDS ORDERED: APIX5TAB PO (06:16)
--- NOTE | 2018-02-24 06:20 | HHI.DCPOC ---
Discharge Care Plan Diagnosis: (1) Atrial fibrillation (2) Status post ablation of atrial fibrillation Goals to Promote Your Health * To prevent worsening of your condition and complications * To maintain your health at the optimal level Directions to Meet Your Goals Take your medications as prescribed Follow your dietary instruction Follow activity as directed Keep your appointments as scheduled Take your immunizations and boosters as scheduled If your symptoms worsen call your PCP, if no PCP go to Urgent Care Center or Emergency Room Smoking is Dangerous to Your Health. Avoid second hand smoke Call the 24-hour hour crisis hotline for domestic abuse at Belgica Norman MD R1 Feb 24, 2018 06:20
--- NOTE | 2018-02-24 06:22 | HHI.DS ---
Discharge Summary Admission Date Feb 16, 2018 at 19:56 Admitting Diagnosis acute atrial fibrillation, episodes of V tach in ED (1) Atrial fibrillation Plan: 72YO female with recent onset Afib presents from clinic with Afib RVR with rate in 130s; pt is asymptomatic--no CP, palpitations, SOB, dizziness, syncope; pt home dose Cardizem 240mg PO daily and indicates she is taking regularly. -Cardiology consulted, appreciated recommendations s/p successful electrophysiology study, 3-D mapping, radiofrequency ablation of AV node. Successful permanent pacemaker reprogramming. -Discontinued Amiodarone gtt in [facility] (due to no IV Dilt) -Discontinue Dilt 90mg q6h -Continue Eliquis 5mg BID for anticoagulation Prior Labs: -Patient had 2 episodes of V. tach on cardiac strips in the ED -CXR negative -INR 1.0/PT 10.2/PTT 26.1 wnl -CBC with WBC 3.6 (56.8% neutrophils/12.2% monocytes) -Troponin x3 <0.02 -BNP 145 -Lopressor 5mg IV push once in ED -Amiodarone gtt started in ED -Dilt 30mg PO once in ED Status: Chronic (2) V-tach Plan: Patient had 2 episodes of V. tach on cardiac strips in the ED Plan as above ICD Codes: I47.2 - Ventricular tachycardia Status: Acute (3) UTI (urinary tract infection) Plan: Urine culture positive for E.coli, sensitive to Macrobid continue Nitrofurantoin 100mg BID (02/18-02/24) Repeat urine culture collected on 02/20 to r/o ESBL in urine, mixed gram positives- most likely contaminants ICD Codes: N39.0 - Urinary tract infection, site not specified (4) Overactive bladder Plan: Continue home oxybutynin 5mg PO qid ICD Codes: N32.81 - Overactive bladder (5) Sacral decubitus ulcer Plan: 4cm x 4cm ulcer at top of gluteal cleft with skin breakdown; bone not visible Stage I -Wound care consulted Continue to encourage patient to reposition herself for comfort and off loading. Recommend to apply Calazime to inner buttocks for moisture with patient use of pads. ICD Codes: L89.159 - Pressure ulcer of sacral region, unspecified stage (6) Memory impairment Plan: Continue home Donepezil 10mg PO qhs ICD Codes: R41.3 - Other amnesia Status: Chronic (7) Polyneuropathy Plan: Pt describes numbness and tingling in bilateral toes. There is no palpable pulse in bilateral ankles/feet; pt likely has moderate-severe PVD -Continue gabapentin 300mg PO qhs -Venous doppler US negative for DVTs Status: Chronic (8) Venous stasis of lower extremity Plan: Several scabbed lesions on each LE below knee with RLE worse than left. No pulses palpated at bilateral ankles. ICD Codes: I87.8 - Venous stasis of lower extremity Status: Acute (9) Chronic back pain Plan: Continue home Hydrocodone ICD Codes: M54.9 - Dorsalgia, unspecified; G89.29 - Other chronic pain Status: Chronic (10) Dental caries Plan: Continue Amoxicillin 500mg PO daily for dental ppx ICD Codes: K02.9 - Dental caries, unspecified (11) FEN/GI/PPx Plan: Fluids: Heart healthy diet, NPO after midnight with PO meds Electrolytes: wnl, will follow with daily BMP and replete as necessary GI: Protonix 20mg PO daily DVT PPx: eliquis, SCDs Zofran 4mg PO q6h nausea (12) L Atrial Ablation 10/23/09 Status: Resolved (13) Pacemaker; Green Filter in IVC; Gastric Bypass 2000 Status: Resolved Brief History Ms Chow is a 72 YO female followed by Dr Gutierrez w/PMHx gastric bypass, aortic regurg s/p valvuloplasty and pacer placement x2, PVD, mild dementia, fibromyalgia, Hx of DVT and tessie filter placement, and recent Afib who was referred to the ED after an office visit this afternoon with uncontrolled AFib RVR in 130s. Pt is totally asymptomatic--no CP, palpitations, SOB, dizziness, or syncope. Pt's home regimen is Cardizem 240mg daily PO and states she has been compliant with medications. Pt is followed by Dr Oglesby, Cardiology, in [facility]. Pt lives with daughter at home and is independent but uses a cane when she goes out of the house. Pt takes prophylactic amoxicillin for poor dentition and takes it when she begins to get tooth pain but is not feeling any oral pain today. Pt denies any other sxs at this time. Pt does not take any anticoagulation. Pt was formerly on aspirin and Pradaxa but was discontinued due to LE edema with open and weeping lesions. Pt had DVT and the Tessie filter placed prior to her gastric bypass in 1999. Pt has numbness in tingling in her toes, but denies DM. Pt denies leg pain. CBC/BMP: 02/23/18 1018 02/23/18 1018 Significant Findings Laboratory Tests Test 02/21/18 08:08 02/22/18 06:15 02/23/18 10:18 White Blood Count 3.6 TH/MM3 (4.0-11.0) 2.9 TH/MM3 (4.0-11.0) 3.8 TH/MM3 (4.0-11.0) Red Blood Count 3.82 MIL/MM3 (4.00-5.30) 3.67 MIL/MM3 (4.00-5.30) 3.79 MIL/MM3 (4.00-5.30) Blood Urea Nitrogen 6 MG/DL (7-18) 6 MG/DL (7-18) 5 MG/DL (7-18) Calcium Level 8.1 MG/DL (8.5-10.1) 8.3 MG/DL (8.5-10.1) 8.0 MG/DL (8.5-10.1) Chloride Level 109 MEQ/L (98-107) 110 MEQ/L (98-107) 108 MEQ/L (98-107) Creatinine 0.48 MG/DL (0.50-1.00) Potassium Level 3.4 MEQ/L (3.5-5.1) PE at Discharge GENERAL: This is a well-nourished, well-developed elderly female in no apparent distress. CARDIOVASCULAR: Pacemaker in place along the left sternal border, irregular rhythm without murmurs, gallops, or rubs. RESPIRATORY: Clear to auscultation. Breath sounds equal bilaterally. No wheezes , rales, or rhonchi. GASTROINTESTINAL: Abdomen soft, non-tender, nondistended. No hepato-splenomegaly , or palpable masses. No guarding. MUSCULOSKELETAL: Extremities without clubbing or cyanosis. Trace edema in bilateral LEs below knees with venous stasis changes as noted above. No joint tenderness, effusion, or edema noted. No calf tenderness. Bilateral LE pulses non-palpable. There is a 4cm x 4cm sacral decubitus ulcer- stage I with skin breakdown in the centerline at the top of the gluteal cleft. NEUROLOGICAL: Awake and alert. Oriented x 3. Belgica Norman MD R1 Feb 24, 2018 06:22
--- NOTE | 2018-02-24 08:19 | EKG ---
Date Performed: 02/24/2018 Time Performed: 06:39:02 PTAGE: 72 years EKG: Ventricular pacing Pacemaker rhythm - no further analysis Abnormal ECG NO PREVIOUS TRACING DOCTOR: Cong Galeas Interpretating Date/Time 02/24/2018 08:18:13
--- NOTE | 2018-02-24 08:39 | HHI.FPPN ---
Subjective Remarks Patient s/p ablation of AV node on 02/23 Resting comfortably in bed HR 80 No complaints. States that she was able to tolerate diet well Denies CP, SOB, abdominal pain, and N/V. (Belgica Norman MD R1) Objective Vitals Vital Signs Date Time Temp Pulse Resp B/P (MAP) Pulse Ox O2 Delivery O2 Flow Rate FiO2 02/24/18 07:00 97.8 80 16 95/64 (74) 95 02/24/18 06:00 80 02/24/18 05:00 80 02/24/18 04:06 80 02/24/18 03:00 80 02/24/18 03:00 93.4 82 17 107/68 (81) 96 02/24/18 02:00 82 02/24/18 02:00 80 02/24/18 01:14 18 02/24/18 01:08 78 02/24/18 00:09 98.3 81 18 115/79 (91) 98 02/24/18 00:00 86 02/23/18 23:00 80 02/23/18 22:00 80 02/23/18 21:55 98.4 80 18 107/70 (82) 98 02/23/18 21:00 80 02/23/18 20:00 80 02/23/18 19:00 80 02/23/18 18:00 80 02/23/18 17:00 80 02/23/18 16:00 80 02/23/18 15:00 80 02/23/18 15:00 97.3 80 16 104/60 (75) 98 02/23/18 14:00 80 02/23/18 13:00 80 02/23/18 12:00 80 02/23/18 11:00 97.9 80 18 95/56 (69) 100 02/23/18 11:00 80 02/23/18 10:00 80 02/23/18 09:00 80 I/O 02/23/18 02/23/18 02/23/18 02/24/18 02/24/18 02/24/18 07:00 15:00 23:00 07:00 15:00 23:00 Intake Total 240 ml 1140 ml 560 ml Output Total 700 ml 700 ml 300 ml Balance -460 ml 440 ml 260 ml Intake Oral 240 ml 1140 ml 560 ml Output Urine Total 700 ml 700 ml 300 ml # Voids 1 (Belgica Norman MD R1) Result Diagram: 02/23/18 1018 02/23/18 1018 Objective Remarks GENERAL: This is a well-nourished, well-developed elderly female in no apparent distress. CARDIOVASCULAR: Pacemaker in place along the left sternal border, pacemaker rhythm without murmurs, gallops, or rubs. RESPIRATORY: Clear to auscultation. Breath sounds equal bilaterally. No wheezes , rales, or rhonchi. GASTROINTESTINAL: Abdomen soft, non-tender, nondistended. No hepato-splenomegaly , or palpable masses. No guarding. MUSCULOSKELETAL: Extremities without clubbing or cyanosis. Trace edema in bilateral LEs below knees with venous stasis changes as noted above. No joint tenderness, effusion, or edema noted. No calf tenderness. Bilateral LE pulses non-palpable. There is a 4cm x 4cm sacral decubitus ulcer- stage I with skin breakdown in the centerline at the top of the gluteal cleft. NEUROLOGICAL: Awake and alert. Oriented x 3. (Belgica Norman MD R1) A/P Assessment and Plan 72 YO female with uncontrolled Afib RVR. S/p successful elctrophysiology study, 3D-mapping, radiofrequency ablation of AV node. Anticoagulation with Eliquis. Discharge Planning Pending cardiology clearance and recs anticipate discharge later this afternoon (Belgica Norman MD R1) Attending Attestation Medical rounds with Dr Norman this morning held Patient seen and evaluated Agree with above documentation See Orders (Kennedy Pop MD) Problem List: (1) Atrial fibrillation Status: Chronic Plan: 72YO female with recent onset Afib presents from clinic with Afib RVR with rate in 130s; pt is asymptomatic--no CP, palpitations, SOB, dizziness, syncope; pt home dose Cardizem 240mg PO daily and indicates she is taking regularly. -Cardiology consulted, appreciated recommendations s/p successful electrophysiology study, 3-D mapping, radiofrequency ablation of AV node. Successful permanent pacemaker reprogramming. - 02/23 -Discontinued Amiodarone gtt in [facility] (due to no IV Dilt) -Discontinue Dilt 90mg q6h, will discuss with cardio about recs for dosage on discharge -Continue Eliquis 5mg BID for anticoagulation Prior Labs: -Patient had 2 episodes of V. tach on cardiac strips in the ED -CXR negative -INR 1.0/PT 10.2/PTT 26.1 wnl -CBC with WBC 3.6 (56.8% neutrophils/12.2% monocytes) -Troponin x3 <0.02 -BNP 145 -Lopressor 5mg IV push once in ED -Amiodarone gtt started in ED -Dilt 30mg PO once in ED (2) V-tach ICD Codes: I47.2 - Ventricular tachycardia Status: Acute Plan: Patient had 2 episodes of V. tach on cardiac strips in the ED Plan as above (3) UTI (urinary tract infection) ICD Codes: N39.0 - Urinary tract infection, site not specified Plan: Urine culture positive for E.coli, sensitive to Macrobid continue Nitrofurantoin 100mg BID (02/18-02/24) Repeat urine culture collected on 02/20 to r/o ESBL in urine, mixed gram positives- most likely contaminants (4) Overactive bladder ICD Codes: N32.81 - Overactive bladder Plan: Continue home oxybutynin 5mg PO qid (5) Sacral decubitus ulcer ICD Codes: L89.159 - Pressure ulcer of sacral region, unspecified stage Plan: 4cm x 4cm ulcer at top of gluteal cleft with skin breakdown; bone not visible Stage I -Wound care consulted Continue to encourage patient to reposition herself for comfort and off loading. Recommend to apply Calazime to inner buttocks for moisture with patient use of pads. (6) Memory impairment ICD Codes: R41.3 - Other amnesia Status: Chronic Plan: Continue home Donepezil 10mg PO qhs (7) Polyneuropathy Status: Chronic Plan: Pt describes numbness and tingling in bilateral toes. There is no palpable pulse in bilateral ankles/feet; pt likely has moderate-severe PVD -Continue gabapentin 300mg PO qhs -Venous doppler US negative for DVTs (8) Venous stasis of lower extremity ICD Codes: I87.8 - Venous stasis of lower extremity Status: Acute Plan: Several scabbed lesions on each LE below knee with RLE worse than left. No pulses palpated at bilateral ankles. (9) Chronic back pain ICD Codes: M54.9 - Dorsalgia, unspecified; G89.29 - Other chronic pain Status: Chronic Plan: Continue home Hydrocodone (10) Dental caries ICD Codes: K02.9 - Dental caries, unspecified Plan: Continue Amoxicillin 500mg PO daily for dental ppx (11) FEN/GI/PPx Plan: Fluids: Heart healthy diet Electrolytes: wnl, will follow with daily BMP and replete as necessary GI: Protonix 20mg PO daily DVT PPx: eliquis, SCDs Zofran 4mg PO q6h nausea (12) L Atrial Ablation 10/23/09 Status: Resolved Permanent Comment: Done by Dr Whitlock at time of Valve Job. Last Edited By: Jinny Connell on Oct 27, 2009 13:57 (13) Pacemaker; Green Filter in IVC; Gastric Bypass 2000 Status: Resolved (Belgica Norman MD R1) Problem Qualifiers (1) Atrial fibrillation: Qualified Codes: I48.1 - Persistent atrial fibrillation (2) Sacral decubitus ulcer: Qualified Codes: L89.150 - Pressure ulcer of sacral region, unstageable (3) Chronic back pain: Belgica Norman MD R1 Feb 24, 2018 08:39 Kennedy Pop MD Feb 24, 2018 13:53
[2018-02-24] MEDS: DOCUSATE SODIUM 50 MG/SENNA 8.6 MG TAB PO SCH (08:52)
[2018-02-24] MEDS: SODIUM CHLORIDE 0.9% FLUSH 10 ML FLUSH IV FLUSH SCH (08:53)
[2018-02-24] MEDS: OXYBUTYNIN CHLORIDE 5 MG TAB PO SCH (08:53)
[2018-02-24] MEDS: PANTOPRAZOLE SOD 20 MG DELAYED RELEASE TAB PO SCH (08:53)
[2018-02-24] MEDS: AMOXICILLIN (TRIHYDRATE) 500 MG CAP PO SCH (08:53)
[2018-02-24] MEDS: APIXABAN 5 MG TABLET PO SCH (08:53)
[2018-02-24 10:02] LABS: HEMATOCRIT 37.9 % (35.0-46.0); HEMOGLOBIN 12.4 GM/DL (11.6-15.3); MEAN CELL VOLUME 99.6 FL (80.0-100.0); MEAN CORPUSCULAR HEMOGLOBIN 32.6 PG (27.0-34.0); MEAN CORPUSCULAR HGB CONC 32.7 % (32.0-36.0); MEAN PLATELET VOLUME 8.2 FL (7.0-11.0); PLATELET COUNT 185 TH/MM3 (150-450); RED BLOOD COUNT 3.81 MIL/MM3 (4.00-5.30); RED CELL DISTRIBUTION WIDTH 14.7 % (11.6-17.2); WHITE BLOOD COUNT 3.6 TH/MM3 (4.0-11.0)
[2018-02-24 10:29] LABS: BICARBONATE 24.1 MEQ/L (21.0-32.0); CALCIUM 8.2 MG/DL (8.5-10.1); CREATININE 0.59 MG/DL (0.50-1.00)
--- NOTE | 2018-02-24 12:18 | PD.CARD.PN ---
Subjective Subjective Remarks Doing well post AV node ablation No complaints Telemetry with paced rhythm Objective Medications Current Medications Medications (Trade) Dose Ordered Sig/Tony Route Start Time Stop Time Status Last Admin (NS Flush) 2 ml UNSCH PRN IV FLUSH 02/16/18 21:15 (NS Flush) 2 ml BID IV FLUSH 02/17/18 09:00 02/24/18 08:53 (Tylenol) 650 mg Q4H PRN PO 02/16/18 21:15 (Narcan Inj) 0.4 mg UNSCH PRN IV PUSH 02/16/18 21:15 ([place]ace) 1 tab BID PO 02/17/18 09:00 02/24/18 08:52 (Milk Of [place] Liq) 30 ml Q12H PRN PO 02/16/18 21:15 (Aricept) 10 mg HS PO 02/17/18 21:00 02/23/18 22:09 (Neurontin) 300 mg HS PO 02/17/18 21:00 02/23/18 22:09 (Ditropan) 5 mg QID PO 02/17/18 09:00 02/24/18 08:53 (Protonix) 20 mg DAILY PO 02/17/18 09:00 02/24/18 08:53 Amiodarone HCl 450 mg/Sodium Chloride 250 ml @ 33.33 mls/ hr Q7H31M PRN IV 02/17/18 06:15 Future Hold 02/20/18 05:42 (Eliquis) 5 mg BID PO 02/17/18 09:00 02/24/18 08:53 ([place] 10-325 Mg) 1 tab Q6HR PO 02/17/18 12:00 02/24/18 11:43 (Trimox) 500 mg DAILY PO 02/17/18 16:00 02/24/18 08:53 (Atropine Inj) 0.5 mg UNSCH PRN IV PUSH 02/23/18 08:45 (Zofran Odt) 4 mg Q4H PRN PO 02/23/18 08:45 Vital Signs / I&O Vital Signs Date Time Temp Pulse Resp B/P (MAP) Pulse Ox O2 Delivery O2 Flow Rate FiO2 02/24/18 11:00 98.0 80 16 103/69 (80) 97 02/24/18 11:00 80 02/24/18 10:00 82 02/24/18 09:00 80 02/24/18 08:00 80 02/24/18 07:00 80 02/24/18 07:00 97.8 80 16 95/64 (74) 95 02/24/18 06:00 80 02/24/18 05:00 80 02/24/18 04:06 80 02/24/18 03:00 80 02/24/18 03:00 93.4 82 17 107/68 (81) 96 02/24/18 02:00 82 02/24/18 02:00 80 02/24/18 01:14 18 02/24/18 01:08 78 02/24/18 00:09 98.3 81 18 115/79 (91) 98 02/24/18 00:00 86 02/23/18 23:00 80 02/23/18 22:00 80 02/23/18 21:55 98.4 80 18 107/70 (82) 98 02/23/18 21:00 80 02/23/18 20:00 80 02/23/18 19:00 80 02/23/18 18:00 80 02/23/18 17:00 80 02/23/18 16:00 80 02/23/18 15:00 80 02/23/18 15:00 97.3 80 16 104/60 (75) 98 02/23/18 14:00 80 02/23/18 13:00 80 I/O 02/23/18 02/23/18 02/23/18 02/24/18 02/24/18 02/24/18 07:00 15:00 23:00 07:00 15:00 23:00 Intake Total 240 ml 1140 ml 560 ml Output Total 700 ml 700 ml 300 ml Balance -460 ml 440 ml 260 ml Intake Oral 240 ml 1140 ml 560 ml Output Urine Total 700 ml 700 ml 300 ml # Voids 1 Physical Exam GENERAL: NAD, AAOx3 SKIN: Warm and dry. HEAD: Atraumatic. Normocephalic. EYES: Pupils equal and round. No scleral icterus. No injection or drainage. ENT: No nasal bleeding or discharge. Mucous membranes pink and moist. NECK: Trachea midline. No JVD. CARDIOVASCULAR: Regular rate and rhythm. RESPIRATORY: No accessory muscle use. Clear to auscultation. Breath sounds equal bilaterally. GASTROINTESTINAL: Abdomen soft, non-tender, nondistended. Hepatic and splenic margins not palpable. MUSCULOSKELETAL: Extremities without clubbing, cyanosis, or edema. No obvious deformities. Right femoral no hematoma NEUROLOGICAL: Awake and alert. No obvious cranial nerve deficits. Motor grossly within normal limits. Five out of 5 muscle strength in the arms and legs. Normal speech. PSYCHIATRIC: Appropriate mood and affect; insight and judgment normal. Laboratory Laboratory Tests Test 02/24/18 08:50 White Blood Count 3.6 TH/MM3 Red Blood Count 3.81 MIL/MM3 Hemoglobin 12.4 GM/DL Hematocrit 37.9 % Mean Corpuscular Volume 99.6 FL Mean Corpuscular Hemoglobin 32.6 PG Mean Corpuscular Hemoglobin Concent 32.7 % Red Cell Distribution Width 14.7 % Platelet Count 185 TH/MM3 Mean Platelet Volume 8.2 FL Blood Urea Nitrogen 5 MG/DL Creatinine 0.59 MG/DL Random Glucose 70 MG/DL Calcium Level 8.2 MG/DL Sodium Level 144 MEQ/L Potassium Level 3.7 MEQ/L Chloride Level 109 MEQ/L Carbon Dioxide Level 24.1 MEQ/L Anion Gap 11 MEQ/L Estimat Glomerular Filtration Rate 101 ML/MIN Assessment and Plan Problem List: (1) Atrial fibrillation Status: Chronic (2) Pacemaker ICD Codes: Z95.0 - Presence of cardiac pacemaker Status: Acute (3) Status post mitral valve annuloplasty ICD Codes: Z98.890 - Other specified postprocedural states Permanent Comment: #[phone] ring 10/09/2009 Last Edited By: Ruben Angel MD on Feb 19, 2018 10:40 (4) s/p left atrial appendage stapling 10/09/2009 (5) s/p surgical left atrial fibrillation 10/09/2009 Assessment and Plan 1) Afib s/p AV node ablation 2) Con't Eliquis 3) Previously on Cardizem for heart rate control but no longer needed, blood pressure low normal Will send home off Cardizem 4) Schedule for PPM interrogation outpt next few weeks 5) Follow up with her alum mixer 6) Cardiovascularly stable for discharge Problem Qualifiers (1) Atrial fibrillation: Qualified Codes: I48.1 - Persistent atrial fibrillation Tra Parada DO Feb 24, 2018 12:18
== END 2018-02-24 13:37 | disposition home or self-care (01) | DRG 274 ==
LOC: NEPE 17:47 → NEDA 19:56 → HCIS 22:20
PROVIDERS: ADMIT Family Medicine; ATTEND Family Medicine
PROC: 02K83ZZ Map Conduction Mechanism, Percutaneous Approach (ICD-10-PCS; 2018-02-23)
PROC: 4A023FZ Measurement of Cardiac Rhythm, Percutaneous Approach (ICD-10-PCS; 2018-02-23)
PROC: 4A0234Z Measurement of Cardiac Electrical Activity, Percutaneous Approach (ICD-10-PCS; 2018-02-23)
PROC: 02583ZZ Destruction of Conduction Mechanism, Percutaneous Approach (ICD-10-PCS; principal; 2018-02-23 07:30)
DX: I48.1 Persistent atrial fibrillation (principal); I47.2 Ventricular tachycardia; L89.151 Pressure ulcer of sacral region, stage 1; I11.0 Hypertensive heart disease with heart failure; N39.0 Urinary tract infection, site not specified; I50.9 Heart failure, unspecified; F03.90 Unspecified dementia, unspecified severity, without behavioral disturbance, psychotic disturbance, mood disturbance, and anxiety; G62.9 Polyneuropathy, unspecified; E78.00 Pure hypercholesterolemia, unspecified; J45.909 Unspecified asthma, uncomplicated; I48.0 Paroxysmal atrial fibrillation; R20.2 Paresthesia of skin; R20.0 Anesthesia of skin; F32.9 Major depressive disorder, single episode, unspecified; M79.7 Fibromyalgia; I73.9 Peripheral vascular disease, unspecified; I87.8 Other specified disorders of veins; N32.81 Overactive bladder; G89.29 Other chronic pain; M54.9 Dorsalgia, unspecified; I08.1 Rheumatic disorders of both mitral and tricuspid valves; K02.9 Dental caries, unspecified; R11.0 Nausea; B96.20 Unspecified Escherichia coli [E. coli] as the cause of diseases classified elsewhere; F41.9 Anxiety disorder, unspecified; K75.9 Inflammatory liver disease, unspecified; M19.90 Unspecified osteoarthritis, unspecified site; M79.89 Other specified soft tissue disorders; Z95.0 Presence of cardiac pacemaker; Z98.84 Bariatric surgery status; Z82.49 Family history of ischemic heart disease and other diseases of the circulatory system; Z79.899 Other long term (current) drug therapy; Z79.01 Long term (current) use of anticoagulants; Z90.710 Acquired absence of both cervix and uterus
CPT/HCPCS: 71045; 80048; 80053; 81001; 82550; 83735; 83880; 84443; 84484; 85025; 85027; 85610; 85730; 87040; 87077; 87086; 87186; 93005; 93623; 93650; 93970; 96374; C1730; J0282; J1644; J2370; J3010; J7040; J7050; J7060